=== PATIENT | female | born 1960 | race Caucasian/White ===

== ENCOUNTER 2017-10-19 23:26 | Inpatient (IN) | payer BC ==
[~2017-10-19] VITALS: Ht 170.2 cm; Wt 85.4 kg
[2017-10-19 23:29] VITALS: BP 193/116; PULSE 91; RESP 16; TEMP 97.7; O2SAT 97
[2017-10-19] MEDS ORDERED: SODIUM CHLOR 0.9% 1000 ML INJ 1,000 ML IV SCH (23:42)
[2017-10-19] MEDS ORDERED: ONDANSETRON HCL 4 MG/2 ML VIAL IVP ONE (23:45)
[2017-10-19] MEDS ORDERED: HYDROmorphone HCL PF 2 MG/ML VIAL IVS ONE (23:45)
[2017-10-19] MEDS ORDERED: SODIUM CHLORIDE 0.9% FLUSH 10 ML FLUSH IV FLUSH PRN (23:45)
[2017-10-19] MEDS ORDERED: SODIUM CHLOR 0.9% 1000 ML INJ 1,000 ML IV ONE (23:45)
--- NOTE | 2017-10-19 23:59 | PD ---
HPI Chief Complaint: Abdominal Pain Time Seen by Provider: 23:37 Travel History International Travel<30 days: No Contact w/Intl Traveler<30days: No Traveled to known affect area: No History of Present Illness HPI 57 year-old woman, history of intermittent belly pains every couple months or so , here with severe upper abdominal pain that started this morning. Symptoms are usually worse after eating fatty foods. Pains been constant all day today with severe nausea vomiting. No diarrhea. Last BM was this morning and was normal. No fevers. No history of abdominal surgeries. She had an endoscopy at age 50 for belly problems but no other previous workups. History Past Medical History Medical History: Denies Significant Hx Tetanus Vaccination: Unknown Influenza Vaccination: No LMP: menapause Social History Alcohol Use: No Tobacco Use: No Allergies-Medications (Allergen,Severity, Reaction): Coded Allergies: No Known Allergies (Unverified , 10/19/17) Reported Meds & Prescriptions Reported Meds & Active Scripts Active No Active Prescriptions or Reported Medications Review of Systems Except as stated in HPI: all other systems reviewed are Neg Physical Exam Narrative GENERAL: Somewhat ill-appearing 57 year-old woman, nontoxic. SKIN: Little pale and clammy. HEAD: Atraumatic. Normocephalic. EYES: Pupils equal and round. No scleral icterus. No injection or drainage. ENT: No nasal bleeding or discharge. Mucous membranes pink and moist. NECK: Trachea midline. No JVD. CARDIOVASCULAR: Regular rate and rhythm. No murmur appreciated. RESPIRATORY: No accessory muscle use. Clear to auscultation. Breath sounds equal bilaterally. GASTROINTESTINAL: Abdomen is flat and soft. She has moderate epigastric and right upper quadrant tenderness to palpation with a little bit of voluntary guarding. MUSCULOSKELETAL: No obvious deformities. No edema. NEUROLOGICAL: Awake and alert. No obvious cranial nerve deficits. Motor grossly within normal limits. Normal speech. PSYCHIATRIC: Appropriate mood and affect; insight and judgment normal. Data Data Last Documented VS Vital Signs Date Time Temp Pulse Resp B/P (MAP) Pulse Ox O2 Delivery O2 Flow Rate FiO2 10/20/17 01:30 98 15 193/120 (144) 94 Room Air 10/19/17 23:29 97.7 Orders Orders Complete Blood Count With Diff (10/19/17 23:42) Comprehensive Metabolic Panel (10/19/17 23:42) Lipase (10/19/17 23:42) Prothrombin Time / Inr (Pt) (10/19/17 23:42) Act Partial Throm Time (Ptt) (10/19/17 23:42) Urinalysis - C+S If Indicated (10/19/17 23:42) Us Abdomen Gallbladder (10/19/17 ) Iv Access Insert/Monitor (10/19/17 23:42) Ecg Monitoring (10/19/17 23:42) Oximetry (10/19/17 23:42) Ondansetron Inj (Zofran Inj) (10/19/17 23:45) Sodium Chlor 0.9% 1000 Ml Inj (Ns 1000 M (10/19/17 23:42) Sodium Chloride 0.9% Flush (Ns Flush) (10/19/17 23:45) Hydromorphone Pf Inj (Dilaudid Pf Inj) (10/19/17 23:45) Sodium Chlor 0.9% 1000 Ml Inj (Ns 1000 M (10/19/17 23:45) Hydromorphone Pf Inj (Dilaudid Pf Inj) (10/20/17 00:45) Electrocardiogram (10/20/17 ) Hydromorphone Pf Inj (Dilaudid Pf Inj) (10/20/17 02:30) Troponin I (10/20/17 02:15) Ondansetron Inj (Zofran Inj) (10/20/17 02:45) Admit To Inpatient (10/20/17 ) Vital Signs (Adult) Q4H (10/20/17 04:07) Activity Oob With Assistance (10/20/17 04:07) Diet Npo (10/20/17 Breakfast) Sodium Chlor 0.9% 1000 Ml Inj (Ns 1000 M (10/20/17 04:07) Sodium Chloride 0.9% Flush (Ns Flush) (10/20/17 04:15) Sodium Chloride 0.9% Flush (Ns Flush) (10/20/17 09:00) Ondansetron Inj (Zofran Inj) (10/20/17 04:15) Comprehensive Metabolic Panel (10/21/17 06:00) Complete Blood Count With Diff (10/21/17 06:00) Scd Bilateral/Knee High BRIJESH.BID (10/20/17 04:07) Naloxone Inj (Narcan Inj) (10/20/17 04:15) Docusate Sodium-Senna (Toshia-Colace) (10/20/17 09:00) Magnesium Hydroxide Liq (Milk Of Magnesi (10/20/17 04:15) Sennosides (Senokot) (10/20/17 04:15) Bisacodyl Supp (Dulcolax Supp) (10/20/17 04:15) Lactulose Liq (Lactulose Liq) (10/20/17 04:15) Inpatient Certification (10/20/17 ) Lipase (10/21/17 06:00) Admit Order (Ed Use Only) (10/20/17 ) Labs Laboratory Tests Test 10/20/17 00:10 10/20/17 02:10 10/20/17 02:15 White Blood Count 18.1 TH/MM3 Red Blood Count 6.31 MIL/MM3 Hemoglobin 17.9 GM/DL Hematocrit 54.9 % Mean Corpuscular Volume 87.0 FL Mean Corpuscular Hemoglobin 28.4 PG Mean Corpuscular Hemoglobin Concent 32.6 % Red Cell Distribution Width 14.0 % Platelet Count 293 TH/MM3 Mean Platelet Volume 8.9 FL Neutrophils (%) (Auto) 90.0 % Lymphocytes (%) (Auto) 4.8 % Monocytes (%) (Auto) 5.0 % Eosinophils (%) (Auto) 0.0 % Basophils (%) (Auto) 0.2 % Neutrophils # (Auto) 16.3 TH/MM3 Lymphocytes # (Auto) 0.9 TH/MM3 Monocytes # (Auto) 0.9 TH/MM3 Eosinophils # (Auto) 0.0 TH/MM3 Basophils # (Auto) 0.0 TH/MM3 CBC Comment AUTO DIFF Differential Total Cells Counted 100 Neutrophils % (Manual) 90 % Band Neutrophils % 6 % Lymphocytes % 2 % Monocytes % 2 % Neutrophils # (Manual) 17.4 TH/MM3 Differential Comment FINAL DIFF MANUAL Platelet Estimate NORMAL Platelet Morphology Comment NORMAL Red Cell Morphology Comment NORMAL Urine Color YELLOW Urine Turbidity CLEAR Urine pH 6.5 Urine Specific [place] 1.013 Urine Protein NEG mg/dL Urine Glucose (UA) 70 mg/dL Urine Ketones 40 mg/dL Urine Occult Blood NEG Urine Nitrite NEG Urine Bilirubin NEG Urine Urobilinogen LESS THAN 2.0 MG/DL Urine Leukocyte Esterase SMALL Urine RBC 1 /hpf Urine WBC 2 /hpf Urine Squamous Epithelial Cells 2 /hpf Urine Hyaline Casts 1 /lpf Urine Mucus FEW /lpf Microscopic Urinalysis Comment CULT NOT INDICATED Prothrombin Time 11.1 SEC Prothromb Time International Ratio 1.1 RATIO Activated Partial Thromboplast Time 24.1 SEC Blood Urea Nitrogen 16 MG/DL Creatinine 0.79 MG/DL Random Glucose 159 MG/DL Total Protein 7.9 GM/DL Albumin 3.7 GM/DL Calcium Level 8.4 MG/DL Alkaline Phosphatase 143 U/L Aspartate Amino Transf (AST/SGOT) 272 U/L Alanine Aminotransferase (ALT/SGPT) 178 U/L Total Bilirubin 1.4 MG/DL Sodium Level 140 MEQ/L Potassium Level 3.8 MEQ/L Chloride Level 107 MEQ/L Carbon Dioxide Level 24.1 MEQ/L Anion Gap 9 MEQ/L Estimat Glomerular Filtration Rate 75 ML/MIN Troponin I LESS THAN 0.02 NG/ML Lipase 7986 U/L MDM Medical Decision Making Medical Screen Exam Complete: Yes Emergency Medical Condition: Yes Interpretation(s) My review of EKG: Normal sinus rhythm at a rate of 88, normal axis, normal intervals, nonspecific inferior T-wave changes, no definite evidence of acute ischemia. LABS: CBC remarkable for leukocytosis CMP remarkable for elevated total bili, AST, ALT Troponin negative Lipase 7986 Coags unremarkable. UA is unremarkable. Gallbladder ultrasound: Adenomyomatosis. Dilated common bile duct. Differential Diagnosis Cholecystitis, gastritis, pancreatitis, UTI, gastroenteritis, other Narrative Course Medical decision making 57 year-old woman with upper abdominal pain associated with nausea and vomiting , postprandial, suspicious for cholecystitis. We'll check labs, ultrasound, UA , reassess. FINAL: Patient with acute pancreatitis. Requiring opiates. Vomiting improved. We'll plan on admission. Diagnosis Primary Impression: Acute pancreatitis Admitting Information Admitting Physician Requests: Admit Scripts No Active Prescriptions or Reported Meds Jasvir Graham MD Oct 19, 2017 23:59
[2017-10-20] VITALS (9 sets, daily range): BP systolic 131–200; BP diastolic 89–120; PULSE 90–123; RESP 14–20; TEMP 98.5–99.8; O2SAT 90–98
[2017-10-20] MEDS ORDERED: HYDROmorphone HCL PF 2 MG/ML VIAL IVS ONE ×3 (00:45→04:30)
--- NOTE | 2017-10-20 00:50 | RADRPT ---
EXAM DATE/TIME: 10/20/2017 00:06 [facility] COMPARISON: No previous studies available for comparison. INDICATIONS : Right upper quadrant pain, nausea and vomiting. MEDICAL HISTORY : Right upper quadrant pain, nausea and vomiting. SURGICAL HISTORY : None. ENCOUNTER: Initial ACUITY: 1 day PAIN SCORE: 1/10 LOCATION: Right upper quadrant MEASUREMENTS: LIVER: 18.4 cm length COMMON DUCT: 10 mm RIGHT KIDNEY: 12.6 x 4.7 x 4.8 cm FINDINGS: LIVER: Normal echotexture without focal lesion or ductal dilatation. COMMON DUCT: Dilated without definite filling defect. GALLBLADDER: Abnormal appearance with mild wall thickening, multiple tiny wall adherent polyps. PANCREAS: The visualized portions are within normal limits. RIGHT KIDNEY: No evidence of hydronephrosis, stone, or mass. CONCLUSION: Gallbladder adenomyomatosis Dilated common bile duct without clear etiology. Tejas Brown MD on October 20, 2017 at 0:44 Board Certified Radiologist. This report was verified electronically.
[2017-10-20 01:30] LABS: AUTOMATED NEUTROPHIL # 16.3 TH/MM3 (1.8-7.7); BASOPHIL % 0.2 % (0.0-2.0); HEMATOCRIT 54.9 % (35.0-46.0); HEMOGLOBIN 17.9 GM/DL (11.6-15.3); LYMPH % 4.8 % (9.0-44.0); LYMPHOCYTE # 0.9 TH/MM3 (1.0-4.8); MEAN CORPUSCULAR HEMOGLOBIN 28.4 PG (27.0-34.0); MEAN CORPUSCULAR HGB CONC 32.6 % (32.0-36.0); MEAN PLATELET VOLUME 8.9 FL (7.0-11.0); MONOCYTE # 0.9 TH/MM3 (0-0.9); PLATELET COUNT 293 TH/MM3 (150-450); RED BLOOD COUNT 6.31 MIL/MM3 (4.00-5.30); WHITE BLOOD COUNT 18.1 TH/MM3 (4.0-11.0)
[2017-10-20 02:22] LABS: BANDS 6 % (0-6); LYMPHOCYTES 2 % (9-44); MONOCYTES 2 % (0-8); NEUTROPHIL # MANUAL DIFF 17.4 TH/MM3 (1.8-7.7); POLYS (SEG NEUTROPHILS) 90 % (16-70)
[2017-10-20] MEDS ORDERED: ONDANSETRON HCL 4 MG/2 ML VIAL IV ONE (02:45)
[2017-10-20 02:46] LABS: INTERNATIONAL NORMALIZED RATIO 1.1 RATIO; PROTHROMBIN TIME - PATIENT 11.1 SEC (9.8-11.6)
[2017-10-20 02:46] LABS: BILIRUBIN, URINE NEG (NEG); BLOOD, URINE NEG (NEG); GLUCOSE,URINE 70 mg/dL (NEG); HYALINE CAST, URINE 1 /lpf (RARE); KETONE, URINE 40 mg/dL (NEG); MUCUS URINE FEW /lpf (OCC); NITRITE,URINE NEG (NEG); PH, URINE 6.5 (5.0-8.5); SQUAMOUS EPITHELIAL CELL URINE 2 /hpf (0-5); URINE COLOR YELLOW (YELLW/STRAW); URINE LEUKOCYTE ESTERASE SMALL (NEG)
[2017-10-20 03:04] LABS: ALBUMIN 3.7 GM/DL (3.4-5.0); ALT (GPT) 178 U/L (10-53); AST (GOT) 272 U/L (15-37); BICARBONATE 24.1 MEQ/L (21.0-32.0); BLOOD UREA NITROGEN 16 MG/DL (7-18); CALCIUM 8.4 MG/DL (8.5-10.1); CHLORIDE 107 MEQ/L (98-107); CREATININE 0.79 MG/DL (0.50-1.00); GLOMERULAR FILTRATION RATE 75 ML/MIN (>89); GLUCOSE,RANDOM 159 MG/DL (74-106); SODIUM (NA) 140 MEQ/L (136-145)
[2017-10-20 03:08] LABS: ALKALINE PHOSPHATASE 143 U/L (45-117); LIPASE 7986 U/L (73-393); TOTAL BILIRUBIN ADULT 1.4 MG/DL (0.2-1.0); TOTAL PROTEIN 7.9 GM/DL (6.4-8.2); TROPONIN I LESS THAN 0.02 NG/ML (0.02-0.05)
[2017-10-20] MEDS: SODIUM CHLOR 0.9% 1000 ML INJ 1,000 ML IV SCH ×5 (04:07→23:07)
[2017-10-20] MEDS ORDERED: MAGNESIUM HYDROXIDE SUSP 30 ML CUP PO PRN (04:15)
[2017-10-20] MEDS ORDERED: LACTULOSE SYRUP 20 GM/30 ML CUP PO PRN (04:15)
[2017-10-20] MEDS ORDERED: SENNOSIDES 8.6 MG TAB PO PRN (04:15)
[2017-10-20] MEDS ORDERED: NALOXONE HCL 0.4 MG/ML AMP IV PUSH PRN (04:15)
[2017-10-20] MEDS ORDERED: BISACODYL 10 MG SUPP RECTAL PRN (04:15)
[2017-10-20] MEDS ORDERED: hydrALAZINE HCL 20 MG/ML VIAL IV PUSH ONE (05:15)
--- NOTE | 2017-10-20 06:20 | HHI.HP ---
[facility]ician Unknown Admission Diagnosis acute pancreatitis Diagnoses: Travel History International Travel<30 Days: No Contact w/Intl Traveler <30 Da: No Traveled to Known Affected Are: No History of Present Illness 57-year-old female with no significant past medical history for since the emergency department for evaluation of severe epigastric abdominal pain and nausea/vomiting. The patient reports her symptoms started yesterday morning. She had severe, 10/10, nonradiating epigastric abdominal pain with severe nausea and multiple episodes of NBNB emesis. Lab values significant for WBC count of 18.1. She has a transaminitis with a lipase of 7986. Ultrasound of the gallbladder showed adenomyomatosis with a dilated common bile duct without clear etiology. Patient found to be tachycardic and hypertensive in the emergency department. Review of Systems Denies fever or chills Denies blurry vision, otorrhea, rhinorrhea Denies sore throat and cough No chest pain, palpitations, shortness of breath Positive abdominal pain Denies constipation/diarrhea. Positive nausea/vomiting Denies muscle pain/weakness No rashes Past Family Social History Past Medical History None Past Surgical History Left bunion surgery Right knee surgery Tummy tuck Breast lift Reported Medications Reported Meds & Active Scripts Active No Active Prescriptions or Reported Medications Allergies: Coded Allergies: No Known Allergies (Unverified , 10/19/17) Family History Both parents with diabetes mellitus. Father with CAD. Social History Occasional alcohol use. Denies tobacco, illicit drugs. Physical Exam Vital Signs Vital Signs Date Time Temp Pulse Resp B/P (MAP) Pulse Ox O2 Delivery O2 Flow Rate FiO2 10/20/17 05:48 112 15 171/99 (123) 94 Room Air 10/20/17 01:30 98 15 193/120 (144) 94 Room Air 10/20/17 01:00 90 14 197/113 (141) 94 Room Air 10/20/17 00:35 99 20 200/107 (138) 94 Room Air 10/20/17 00:03 98 Room Air 10/19/17 23:29 97.7 91 16 193/116 (141) 97 Room Air Physical Exam GENERAL: female lying in bed SKIN: No rashes, ecchymoses or lesions. Cool and dry. HEAD: Atraumatic. Normocephalic. No temporal or scalp tenderness. EYES: Pupils equal round and reactive. Extraocular motions intact. No scleral icterus. No injection or drainage. ENT: Nose without bleeding, purulent drainage or septal hematoma. Throat without erythema, tonsillar hypertrophy or exudate. Uvula midline. Airway patent. NECK: Trachea midline. No JVD or lymphadenopathy. Supple, nontender, no meningeal signs. CARDIOVASCULAR: Regular rate and rhythm without murmurs, gallops, or rubs. RESPIRATORY: Clear to auscultation. Breath sounds equal bilaterally. No wheezes , rales, or rhonchi. GASTROINTESTINAL: Abdomen soft, nondistended. Severely tender to palpation worse in the epigastric region. MUSCULOSKELETAL: Extremities without clubbing, cyanosis, or edema. No joint tenderness, effusion, or edema noted. No calf tenderness. NEUROLOGICAL: Awake and alert. Cranial nerves II through XII intact. Motor and sensory grossly within normal limits. Normal speech. Laboratory Laboratory Tests Test 10/20/17 00:10 10/20/17 02:10 10/20/17 02:15 White Blood Count 18.1 Red Blood Count 6.31 Hemoglobin 17.9 Hematocrit 54.9 Mean Corpuscular Volume 87.0 Mean Corpuscular Hemoglobin 28.4 Mean Corpuscular Hemoglobin Concent 32.6 Red Cell Distribution Width 14.0 Platelet Count 293 Mean Platelet Volume 8.9 Neutrophils (%) (Auto) 90.0 Lymphocytes (%) (Auto) 4.8 Monocytes (%) (Auto) 5.0 Eosinophils (%) (Auto) 0.0 Basophils (%) (Auto) 0.2 Neutrophils # (Auto) 16.3 Lymphocytes # (Auto) 0.9 Monocytes # (Auto) 0.9 Eosinophils # (Auto) 0.0 Basophils # (Auto) 0.0 CBC Comment AUTO DIFF Differential Total Cells Counted 100 Neutrophils % (Manual) 90 Band Neutrophils % 6 Lymphocytes % 2 Monocytes % 2 Neutrophils # (Manual) 17.4 Differential Comment FINAL DIFF MANUAL Platelet Estimate NORMAL Platelet Morphology Comment NORMAL Red Cell Morphology Comment NORMAL Urine Color YELLOW Urine Turbidity CLEAR Urine pH 6.5 Urine Specific [place] 1.013 Urine Protein NEG Urine Glucose (UA) 70 Urine Ketones 40 Urine Occult Blood NEG Urine Nitrite NEG Urine Bilirubin NEG Urine Urobilinogen LESS THAN 2.0 Urine Leukocyte Esterase SMALL Urine RBC 1 Urine WBC 2 Urine Squamous Epithelial Cells 2 Urine Hyaline Casts 1 Urine Mucus FEW Microscopic Urinalysis Comment CULT NOT INDICATED Prothrombin Time 11.1 Prothromb Time International Ratio 1.1 Activated Partial Thromboplast Time 24.1 Blood Urea Nitrogen 16 Creatinine 0.79 Random Glucose 159 Total Protein 7.9 Albumin 3.7 Calcium Level 8.4 Alkaline Phosphatase 143 Aspartate Amino Transf (AST/SGOT) 272 Alanine Aminotransferase (ALT/SGPT) 178 Total Bilirubin 1.4 Sodium Level 140 Potassium Level 3.8 Chloride Level 107 Carbon Dioxide Level 24.1 Anion Gap 9 Estimat Glomerular Filtration Rate 75 Troponin I LESS THAN 0.02 Lipase 7986 Result Diagram: 10/20/17 0010 10/20/17 0215 Caprini VTE Risk Assessment Caprin VTE Risk Assessment: No/Low Risk (score <= 1) Caprini Risk Assessment Model Point Value = 1 Point Value = 2 Point Value = 3 Point Value = 5 Age 41-60 Minor surgery BMI > 25 kg/m2 Swollen legs Varicose veins or History of unexplained or recurrent spontaneous Oral contraceptives or hormone replacement Sepsis (< 1 month) Serious lung disease, including pneumonia (< 1 month) Abnormal pulmonary function Acute myocardial infarction Congestive heart failure (< 1 month) History of inflammatory bowel disease Medical patient at bed rest Age 61-74 Arthroscopic surgery Major open surgery (> 45 min) Laparoscopic surgery (> 45 min) Malignancy Confined to bed (> 72 hours) Immobilizing plaster cast Central venous access Age >= 75 History of VTE Family history of VTE Factor V Leiden Prothrombin [id number] Lupus anticoagulant Anticardiolipin antibodies Elevated serum homocysteine Heparin-induced thrombocytopenia Other congenital or acquired thrombophilia Stroke (< 1 month) Elective arthroplasty Hip, pelvis, or leg fracture Acute spinal cord injury (< 1 month) Prophylaxis Regimen Total Risk Factor Score Risk Level Prophylaxis Regimen 0-1 Low Early ambulation 2 Moderate Order ONE of the following: *Sequential Compression Device (SCD) *Heparin 5000 units SQ BID 3-4 Higher Order ONE of the following medications: *Heparin 5000 units SQ TID *Enoxaparin/Lovenox 40 mg SQ daily (WT < 150 kg, CrCl > 30 mL/min) *Enoxaparin/Lovenox 30 mg SQ daily (WT < 150 kg, CrCl > 10-29 mL/min) *Enoxaparin/Lovenox 30 mg SQ BID (WT < 150 kg, CrCl > 30 mL/min) AND/OR *Sequential Compression Device (SCD) 5 or more Highest Order ONE of the following medications: *Heparin 5000 units SQ TID (Preferred with Epidurals) *Enoxaparin/Lovenox 40 mg SQ daily (WT < 150 kg, CrCl > 30 mL/min) *Enoxaparin/Lovenox 30 mg SQ daily (WT < 150 kg, CrCl > 10-29 mL/min) *Enoxaparin/Lovenox 30 mg SQ BID (WT < 150 kg, CrCl > 30 mL/min) AND *Sequential Compression Device (SCD) Assessment and Plan Assessment and Plan Assessment/plan: 1. Acute pancreatitis Nothing by mouth IV fluid hydration Patient with transaminitis and elevated common bile duct on ultrasound CT of the abdomen/pelvis pending Dilaudid for pain 2. Hypertension/tachycardia Patient without history of hypertension May be secondary to pain Monitor FEN NPO NS at 150 cc/hr Electrolytes: monitor and replete prn SCDs Case discussed with the ER physician at length Physician Certification 2 Midnight Certification Type: Admission for Inpatient Services Order for Inpatient Services The services are ordered in accordance with Medicare regulations or non- Medicare payer requirements, as applicable. In the case of services not specified as inpatient-only, they are appropriately provided as inpatient services in accordance with the 2-midnight benchmark. Estimated LOS (days): 2 2 days is the estimated time the patient will need to remain in the hospital, assuming treatment plan goals are met and no additional complications. Post-Hospital Plan: Not yet determined Joanne Chavarria MD Oct 20, 2017 06:20
--- NOTE | 2017-10-20 06:42 | RADRPT ---
EXAM DATE/TIME: 10/20/2017 06:15 [facility] COMPARISON: US ABDOMEN - GALLBLADDER, October 20, 2017, 0:06. INDICATIONS : Right upper qaudrant pain. Elevated Lipase. ORAL CONTRAST: No oral contrast ingested. RADIATION DOSE: 7.04 CTDIvol (mGy) MEDICAL HISTORY : None SURGICAL HISTORY : None. ENCOUNTER: Initial ACUITY: 2 days PAIN SCALE: 8/10 LOCATION: Right upper quadrant TECHNIQUE: Volumetric scanning of the abdomen and pelvis was performed. Using automated exposure control and ad justment of the mA and/or kV according to patient size, radiation dose was kept as low as reasonably achievable to obtain optimal diagnostic quality images. DICOM format image data is available electro nically for review and comparison. FINDINGS: LOWER LUNGS: Minimal parenchymal opacity in the posterior lung bases. LIVER: Homogeneous density without lesion. There is no dilation of the biliary tree. Dependent calcified st ones in the gallbladder SPLEEN: Normal size without lesion. PANCREAS: Prominent inflammatory changes in and around the pancreas with extension throughout the pararenal spa david bilaterally. Some dependent pelvic fluid present. Some ascites adjacent to the liver and spleen. No evidence of loculated collection at present. KIDNEYS: Normal in size and shape. There is no mass, stone, or hydronephrosis. ADRENAL GLANDS: Within normal limits. VASCULAR: There is no aortic aneurysm. BOWEL/MESENTERY: The stomach, small bowel, and colon demonstrate no acute abnormality. There is no free intraperitone al air or fluid. ABDOMINAL WALL: Within normal limits. RETROPERITONEUM: There is no lymphadenopathy. BLADDER: No wall thickening or mass. REPRODUCTIVE: Within normal limits. INGUINAL: There is no lymphadenopathy or hernia. MUSCULOSKELETAL: Within normal limits for patient age. CONCLUSION: Prominent changes of pancreatitis. Gallstones. Tejas Brown MD on October 20, 2017 at 6:37 Board Certified Radiologist. This report was verified electronically.
[2017-10-20] MEDS: HYDROmorphone HCL PF 2 MG/ML VIAL IV PUSH PRN ×6 (07:29→23:06)
[2017-10-20] MEDS: ONDANSETRON HCL 4 MG/2 ML VIAL IVP PRN ×2 (07:37→15:20)
[2017-10-20] MEDS: DOCUSATE SODIUM 50 MG/SENNA 8.6 MG TAB PO SCH ×3 (09:00→21:00)
[2017-10-20] MEDS: SODIUM CHLORIDE 0.9% FLUSH 10 ML FLUSH IV FLUSH SCH ×2 (09:04→21:00)
--- NOTE | 2017-10-20 11:43 | HHI.PR ---
Addendum to Inpatient Note Additional Information Review CT abdomen and gallbladder ultrasound, I order MRCP and consulted GI, continue current management with iv fluid management electrolyte monitoring Luz Munson MD Oct 20, 2017 11:43
[2017-10-20] MEDS ORDERED: HYDROmorphone HCL PF 2 MG/ML VIAL IV ONE (13:15)
--- NOTE | 2017-10-20 16:34 | RADRPT ---
EXAM DATE/TIME: 10/20/2017 15:38 [facility] COMPARISON: CT ABDOMEN & PELVIS W/O CONTRAST, October 20, 2017, 6:15. INDICATIONS : Abdominal pain. MEDICAL HISTORY : None. SURGICAL HISTORY : ORIF left foot. ENCOUNTER: Initial ACUITY: 1 day PAIN SCORE: 5/10 LOCATION: Abdomen. TECHNIQUE: Multiplanar, multisequence magnetic resonance imaging of the abdomen was performed. High-resolution 3D dataset was utilized to reconstruct maximum-intensity projection (MIP) images. FINDINGS: INTRAHEPATIC BILE DUCTS: Within normal limits. No significant anatomical variant is present. EXTRAHEPATIC BILE DUCTS: The common bile duct measures 8 mm proximally and 5 mm distally. No stone or filling defect is identi fied. GALLBLADDER: Numerous small gallstones layering in the gallbladder. LIVER: Normal size and signal intensity. No concerning liver lesion is identified on this non-contrast exam. Small amount of perihepatic ascites. PANCREAS: Severe diffuse peripancreatic inflammatory change. Pancreatic duct within normal limits. OTHER: The remaining visualized structures demonstrate no acute abnormality on this non-contrast exam. CONCLUSION: 1. Severe peripancreatic inflammatory change indicating acute pancreatitis. 2. Numerous gallstones in the gallbladder. 3. Common duct diameter is mildly prominent proximally measuring 8 mm. No abnormal filling defect. Chin Griffin MD on October 20, 2017 at 16:29 Board Certified Radiologist. This report was verified electronically.
--- NOTE | 2017-10-20 21:26 | EKG ---
Date Performed: 10/20/2017 Time Performed: 02:34:44 PTAGE: 57 years EKG: Sinus rhythm NORMAL ECG NO PREVIOUS TRACING DOCTOR: Lucius Aviles Interpretating Date/Time 10/20/2017 21:24:00
[2017-10-21] VITALS: BP 130/87; PULSE 128; RESP 16; TEMP 98.4; O2SAT 95
[2017-10-21] MEDS: ONDANSETRON HCL 4 MG/2 ML VIAL IVP PRN (02:56)
[2017-10-21] MEDS: HYDROmorphone HCL PF 2 MG/ML VIAL IV PUSH PRN ×6 (02:57→20:36)
[2017-10-21] MEDS: SODIUM CHLOR 0.9% 1000 ML INJ 1,000 ML IV SCH ×2 (05:57→12:01)
[2017-10-21 07:31] LABS: AUTOMATED NEUTROPHIL # 16.6 TH/MM3 (1.8-7.7); BASOPHIL % 0.1 % (0.0-2.0); HEMATOCRIT 46.7 % (35.0-46.0); HEMOGLOBIN 15.5 GM/DL (11.6-15.3); LYMPH % 2.6 % (9.0-44.0); LYMPHOCYTE # 0.5 TH/MM3 (1.0-4.8); MEAN CELL VOLUME 87.8 FL (80.0-100.0); MEAN CORPUSCULAR HEMOGLOBIN 29.2 PG (27.0-34.0); MEAN CORPUSCULAR HGB CONC 33.2 % (32.0-36.0); MEAN PLATELET VOLUME 8.7 FL (7.0-11.0); MONO % 7.6 % (0.0-8.0); MONOCYTE # 1.4 TH/MM3 (0-0.9); NEUT % 89.7 % (16.0-70.0); PLATELET COUNT 216 TH/MM3 (150-450); RED BLOOD COUNT 5.32 MIL/MM3 (4.00-5.30); RED CELL DISTRIBUTION WIDTH 13.9 % (11.6-17.2); WHITE BLOOD COUNT 18.5 TH/MM3 (4.0-11.0)
[2017-10-21 08:00] VITALS: BP 129/76; PULSE 110; RESP 17; TEMP 97.9; O2SAT 97
[2017-10-21 08:00] LABS: ALBUMIN 2.6 GM/DL (3.4-5.0); CALCIUM 7.2 MG/DL (8.5-10.1); CALCIUM-PROTEIN CORRECTED 7.6 MG/DL (8.5-10.1); CREATININE 0.91 MG/DL (0.50-1.00); TOTAL BILIRUBIN ADULT 0.8 MG/DL (0.2-1.0); TOTAL PROTEIN 6.4 GM/DL (6.4-8.2)
[2017-10-21] MEDS: DOCUSATE SODIUM 50 MG/SENNA 8.6 MG TAB PO SCH ×3 (08:14→20:35)
[2017-10-21] MEDS: SODIUM CHLORIDE 0.9% FLUSH 10 ML FLUSH IV FLUSH SCH ×2 (09:00→20:36)
[2017-10-21] MEDS ORDERED: CALCIUM GLUCONATE INJ 2 GM in DEXTROSE 5% IN WATER 100ML INJ 100 ML IV ONE ×2 (11:00)
[2017-10-21] MEDS: cefTRIAXone INJ 2,000 MG in SODIUM CHLORIDE 0.9% INJ 100 ML IV SCH ×2 (11:00→22:35)
--- NOTE | 2017-10-21 11:04 | PD.CONS ---
HPI History of Present Illness This is a 57 year old with no PMH who presented with epigastric pain, n/v. Onset 2 d ago after eating schneider and a greasy lunch. She thought it was gas. She has had epigastric discomfort with occ n/v and bloating in past and has always attributed it to "acid foods" and gas. This time was more severe. She has had some improvement in pain and nausea today. US showed dilated CBD, adenomyomatosis, CT showed pancreatitis and gallstones, MRCP showed same and CBD mildly prominent with no filling defects. Her lipase was elevated on admission and has decreased today, along with her LFTs. WBC elevated. She had colonoscopy 7 y ago in [place] along with EGD and recalls gastritis as finding. (Fawn Colin) PFSH Past Medical History None Past Surgical History Left bunion surgery Right knee surgery Tummy tuck Breast lift (Fawn Colin) Coded Allergies: No Known Allergies (Unverified , 10/19/17) Family History Both parents with diabetes mellitus. Father with CAD. Social History Occasional alcohol use. Denies tobacco, illicit drugs. (Fawn Colin) Review of Systems Constitutional: DENIES: Weight loss Endocrine: DENIES: Polyuria Eyes: DENIES: Photosensitivity Ears, nose, mouth, throat: DENIES: Hearing loss Respiratory: DENIES: Wheezing Cardiovascular: DENIES: Chest pain Gastrointestinal: COMPLAINS OF: Abdominal pain, Nausea, Vomiting, DENIES: Black stools, Bloody stools, Constipation, Diarrhea, Hematemesis Genitourinary: DENIES: Hematuria Musculoskeletal: DENIES: Joint Swelling Integumentary: DENIES: Rash Hematologic/lymphatic: DENIES: Lymphadenopathy Neurologic: DENIES: Abnormal gait Psychiatric: DENIES: Confusion (Fawn Colin) GI Exam Vitals I&O Vital Signs Date Time Temp Pulse Resp B/P (MAP) Pulse Ox O2 Delivery O2 Flow Rate FiO2 10/21/17 08:00 97.9 110 17 129/76 (93) 97 10/21/17 00:00 98.4 128 16 130/87 (101) 95 10/20/17 20:00 99.1 123 17 132/90 (104) 94 10/20/17 16:00 99.8 123 16 131/89 (103) 90 12/24/17 12:00 98.8 123 20 167/103 (124) 95 I/O 10/20/17 10/20/17 10/20/17 10/21/17 10/21/17 10/21/17 07:00 15:00 23:00 07:00 15:00 23:00 Intake Total 2000 ml 0 ml 1774 ml Output Total 250 ml Balance 2000 ml 0 ml 1524 ml Intake Oral 0 ml 0 ml IV Total 2000 ml 1774 ml Output Urine Total 250 ml # Voids 1 2 Imaging Last Impressions Cholangiopancreatography MRI 10/20/17 0000 Signed Impressions: Service Date/Time: Friday, October 20, 2017 15:38 - CONCLUSION: 1. Severe peripancreatic inflammatory change indicating acute pancreatitis. 2. Numerous gallstones in the gallbladder. 3. Common duct diameter is mildly prominent proximally measuring 8 mm. No abnormal filling defect. Chin Griffin MD Abdomen/Pelvis CT 10/20/17 0000 Signed Impressions: Service Date/Time: Friday, October 20, 2017 06:15 - CONCLUSION: Prominent changes of pancreatitis. Gallstones. Tejas Brown MD Gall Bladder Ultrasound 10/19/17 0000 Signed Impressions: Service Date/Time: Friday, October 20, 2017 00:06 - CONCLUSION: Gallbladder adenomyomatosis Dilated common bile duct without clear etiology. Tejas Brown MD Laboratory Test 10/20/17 12:25 10/21/17 06:25 Lactic Acid Level 1.6 mmol/L White Blood Count 18.5 TH/MM3 Red Blood Count 5.32 MIL/MM3 Hemoglobin 15.5 GM/DL Hematocrit 46.7 % Mean Corpuscular Volume 87.8 FL Mean Corpuscular Hemoglobin 29.2 PG Mean Corpuscular Hemoglobin Concent 33.2 % Red Cell Distribution Width 13.9 % Platelet Count 216 TH/MM3 Mean Platelet Volume 8.7 FL Neutrophils (%) (Auto) 89.7 % Lymphocytes (%) (Auto) 2.6 % Monocytes (%) (Auto) 7.6 % Eosinophils (%) (Auto) 0.0 % Basophils (%) (Auto) 0.1 % Neutrophils # (Auto) 16.6 TH/MM3 Lymphocytes # (Auto) 0.5 TH/MM3 Monocytes # (Auto) 1.4 TH/MM3 Eosinophils # (Auto) 0.0 TH/MM3 Basophils # (Auto) 0.0 TH/MM3 CBC Comment DIFF FINAL Differential Comment Blood Urea Nitrogen 18 MG/DL Creatinine 0.91 MG/DL Random Glucose 130 MG/DL Total Protein 6.4 GM/DL Albumin 2.6 GM/DL Calcium Level 7.2 MG/DL Alkaline Phosphatase 89 U/L Aspartate Amino Transf (AST/SGOT) 63 U/L Alanine Aminotransferase (ALT/SGPT) 72 U/L Total Bilirubin 0.8 MG/DL Sodium Level 142 MEQ/L Potassium Level 4.5 MEQ/L Chloride Level 111 MEQ/L Carbon Dioxide Level 25.0 MEQ/L Anion Gap 6 MEQ/L Estimat Glomerular Filtration Rate 64 ML/MIN Protein Corrected Calcium 7.6 MG/DL Magnesium Level 1.8 MG/DL Lipase 4449 U/L Physical Examination HEENT: PERRL; normocephalic; atraumatic; no jaundice. CHEST: CTA CARDIAC: RRR ABDOMEN: Soft, mildly distended, upper quadrant TTP; no hepatosplenomegaly; bowel sounds are present in all four quadrants. EXTREMITIES: No clubbing, cyanosis, or edema. SKIN: Normal; no rash; no jaundice. INFRASTRUCTURE CONSULTANT: No focal deficits; alert and oriented times three. (Fawn Colin) Assessment and Plan Plan ASSESSMENT - epigastric pain, n/v, bloating, abnormal imaging - gallstone pancreatitis, suspect she had CBD stone that has passed. LFTS, lipase elevated but trending down. imaging noted. MRCP noted mildly prominent CBD and no filling defect, pancreatitis. some improvement sx since yesterday - leukocytosis - WBC remains elevated 18k likely 2/2 above PLAN - abx - NPO w/ ice chips - IVF - pain mgmt - GS consult outpt - monitor LFTs, lipase - further recs to follow This pt seen by myself and Dr Partida and this note is written on his behalf (Fawn Colin) Physician Comments Seen and examined, plan as above. Will follow up with you. (Prudence Partida MD) Fawn Colin Oct 21, 2017 11:04 Prudence Partida MD Oct 21, 2017 12:14
[2017-10-21 12:00] VITALS: BP 133/78; PULSE 106; RESP 17; TEMP 98.4; O2SAT 97
[2017-10-21] MEDS: DEXT 5%-NACL 0.45% 1000 ML INJ 1,000 ML IV SCH ×2 (13:00→20:37)
--- NOTE | 2017-10-21 13:22 | HHI.PR ---
Subjective Remarks abd pain is better , no n/v lipase and LFT trending down d/w GI >rec surgery consult Objective Vitals Vital Signs Date Time Temp Pulse Resp B/P (MAP) Pulse Ox O2 Delivery O2 Flow Rate FiO2 10/21/17 12:00 98.4 106 17 133/78 (96) 97 10/21/17 08:00 97.9 110 17 129/76 (93) 97 10/21/17 00:00 98.4 128 16 130/87 (101) 95 10/20/17 20:00 99.1 123 17 132/90 (104) 94 10/20/17 16:00 99.8 123 16 131/89 (103) 90 I/O 10/20/17 10/20/17 10/20/17 10/21/17 10/21/17 10/21/17 07:00 15:00 23:00 07:00 15:00 23:00 Intake Total 2000 ml 0 ml 1774 ml Output Total 250 ml Balance 2000 ml 0 ml 1524 ml Intake Oral 0 ml 0 ml IV Total 2000 ml 1774 ml Output Urine Total 250 ml # Voids 1 2 Result Diagram: 10/21/1762410/21/17624 Objective Remarks GENERAL: This is a well-nourished, well-developed patient, in no apparent distress. CARDIOVASCULAR: Regular rate and rhythm without murmurs, gallops, or rubs. RESPIRATORY: Clear to auscultation. Breath sounds equal bilaterally. No wheezes , rales, or rhonchi. GASTROINTESTINAL: Abdomen soft, non-tender, nondistended. Normal active bowel sounds MUSCULOSKELETAL: Extremities without clubbing, cyanosis, or edema. NEURO: Alert & Oriented x4 to person, place, time, situation. Moves all ext x4 A/P Assessment and Plan abd pain is better , no n/v lipase and LFT trending down d/w GI >rec surgery consult 1. Acute pancreatitis Nothing by mouth IV fluid hydration Patient with transaminitis and elevated common bile duct on ultrasound CT of the abdomen/pelvis pending Dilaudid for pain 2. Hypertension/tachycardia Patient without history of hypertension May be secondary to pain Monitor Discharge Planning Luz Munson MD Oct 21, 2017 13:22
[2017-10-21 16:00] VITALS: BP 127/83; PULSE 97; RESP 16; TEMP 97.6; O2SAT 98
--- NOTE | 2017-10-21 18:03 | MB ---
cc: YOVANNY LIANG MD, DAVID G. M.D. NEMOU, KHALIL MD DATE OF CONSULTATION 10/21/2017 REASON FOR CONSULTATION Gallstone pancreatitis. BRIEF HISTORY This is a 57-year-old woman who was camping with family at [facility] and she got up and had greasy schneider. She developed severe upper abdominal pain, nausea with emesis. Her significant other was with her and said he brought a chair into the bath house for her and she would throw up and have cold compresses and throw up and became severely dehydrated. She eventually got so dehydrated and painful she requested being brought to the emergency room. She was so out of it, she did not even have any shoes on at that time. She was found to have pancreatitis, was put in the hospital, had ultrasound which showed a dilated common bile duct and adenomyomatosis. CT and MRCP demonstrate severe pancreatitis, ascites, gallstones and a mildly prominent common bile duct without filling defects. Her liver function tests and lipase have decreased somewhat. She has a significant history of acid disease and gastritis, no real gastroesophageal reflux disease in the past. She is still pretty painful across the upper abdomen although improved. ALLERGIES She has had no known drug allergies. PAST MEDICAL HISTORY Her past medical history is noncontributory other than having these episodes of acid type abdominal discomfort. She apparently had an EGD which showed some gastritis and a colonoscopy seven years ago. ROUTINE MEDICATIONS None. PREVIOUS SURGERIES 1. Left bunion surgery. 2. She has had right knee surgery where she says her ACL was completely torn but she never did anything for it other than a knee arthroscopy. 3. She has had a breast list. 4. She has had a mini-tummy tuck. 5. She has had a tubal ligation. 6. She has also had LASIK surgery on the eyes. SOCIAL HISTORY She really does not drink much more than one drink at a time for several years. She denies tobacco abuse or illicit drug use. FAMILY HISTORY Significant for heart disease and diabetes. She had a brother with bone cancer and he has been in remission since his 20s. REVIEW OF SYSTEMS CONSTITUTIONAL: On review of systems she has had weight gain of 30 pounds over the last 4 or 5 years since she has been going through menopause. CARDIOVASCULAR: She denies primary heart disease although she was told she had a heart murmur during this hospitalization. She had never known that in the past. She has had prior EKGs without any problems. GASTROINTESTINAL: She denies known liver or kidney disease. NEUROLOGIC: No history of strokes or seizures. ENDOCRINE: No diabetes or thyroid gland problems. HEMATOLOGIC: She has never been on blood thinning medications. PHYSICAL EXAMINATION GENERAL: Her physical examination shows a middle-aged woman who is in no acute distress. She is pleasant and cooperative with the exam. Exam done in the presence of her significant other. VITAL SIGNS: Her temperature is 97.6, pulse 97, respiratory rate 16, blood pressure 127/83. Her O2 sat is 98% on room air. HEENT: She is normocephalic, atraumatic. Her pupils are 2 and sluggishly reactive to light. They are round and equal. Her sclerae are anicteric. Oropharynx is clear without mucosal lesions. She has good dentition. Her mucous membranes are moist. NECK: Her neck is supple without adenopathy. She has a midline trachea. No jugular venous distension. No thyromegaly and no carotid bruits. LUNGS: Her lungs are clear and equal anteriorly bilaterally. CARDIOVASCULAR: Her heart sounds are regular with an obvious 3-4/6 systolic ejection murmur. BREAST EXAM: Not repeated. ABDOMEN: Her abdomen is overweight, soft, mildly distended and tender across the upper abdomen without rebound or guarding. She has a healed scar in the inferior aspect of the umbilicus consistent with tubal ligation. She has a healed low transverse scar consistent with her history of abdominoplasty. EXTREMITIES: Her extremities show no cyanosis, clubbing or edema. She has got equal radial and dorsalis pedis pulses. She has scars from her prior bunion and knee arthroscopy surgeries. NEUROLOGICALLY: She is awake, alert, oriented and she has equal bilateral supervisor partial denture department strength and no gross motor or sensory deficit. LABORATORY DATA Her labs demonstrate a white count of 18.5 with 89% neutrophils. Her hemoglobin is 15.5 with a platelet count of 216. Coagulation studies were normal. Her total bilirubin has gone from 1.4 to 0.8, AST from 272 to 63, ALT from 178 to 72, alk phos from 143 to 89. Her lipase went from 7986 to 4449. Her magnesium was 1.8. Urinalysis showed glucosuria and ketonuria and a culture was not indicated. There was no bilirubin in her a urine. IMAGING STUDIES Ultrasound demonstrated a dilated common duct without definite filling defect, abnormal appearance with mild wall thickening of the gallbladder, multiple tiny wall adherent polyps which in retrospect are more likely gallstones. She had an MRCP which demonstrated severe shaina-pancreatic inflammatory change consistent with acute pancreatitis, numerous gallstones in the gallbladder, a mildly prominent common bile duct without filling defect. A CT scan of the abdomen and pelvis demonstrated prominent changes of pancreatitis with ascites as well as gallstones. ASSESSMENT This is a 57-year-old woman with history of intermittent episodes of upper abdominal discomfort which she attributed to acid who has had previous gastritis on EGD. She developed acute onset of pain, nausea with emesis and subsequent dehydration likely related to gallstone pancreatitis. Imaging studies had demonstrated a likely passed common bile duct stone. She still has severe inflammatory pancreatic changes on imaging as well as ascites. She is lead mason tender in the upper abdomen. RECOMMENDATIONS Treatment at this point for acute pancreatitis is bowel rest and supportive therapy. I discussed with the patient and her significant other ultimate treatment to remove the etiology of gallstone pancreatitis is laparoscopic cholecystectomy. The procedure in detail plus risks of bleeding, infection, injury to intraabdominal contents including liver, bile duct or bowel, possible open surgery, DVT, pulmonary embolus and expectations for recovery were reviewed. She is from [place] and is considering she may elect to go home and have her surgery in [place]. I discussed with her the risk of developing a second episode of pancreatitis should another stones spill into the common bile duct and the complications potentially associated with that. Ultimately it will be her decision to make whether she proceeds with laparoscopic cholecystectomy during this hospitalization or elects to proceed with discharge and followup with a general surgeon in the [place] area. I will follow along during her hospitalization and thank you for the opportunity to participate in this pleasant woman's care. MD SHAWN Simmons/MATTHEW /4:56 PM /5:13 PM
[2017-10-21 20:00] VITALS: BP 139/83; PULSE 124; RESP 18; TEMP 98.2; O2SAT 92
[2017-10-21] MEDS: HYDROmorphone HCL PF 2 MG/ML VIAL IV PRN (22:36)
[2017-10-21] MEDS ORDERED: MAGNESIUM SULFATE 1 GM PREMIX 100 ML IV ONE (23:15)
[2017-10-22] VITALS (9 sets, daily range): BP systolic 121–146; BP diastolic 67–86; PULSE 96–119; RESP 17–18; TEMP 97.8–102.5; O2SAT 84–92
[2017-10-22] MEDS: HYDROmorphone HCL PF 2 MG/ML VIAL IV PUSH PRN ×5 (03:53→23:41)
[2017-10-22] MEDS ORDERED: ACETAMINOPHEN 650 MG SUPP RECTAL PRN (04:30)
--- NOTE | 2017-10-22 04:59 | RADRPT ---
EXAM DATE/TIME: 10/22/2017 04:39 [facility] COMPARISON: No previous studies available for comparison. INDICATIONS : Fever. MEDICAL HISTORY : None. SURGICAL HISTORY : None. ENCOUNTER: Initial ACUITY: 1 day PAIN SCORE: Non-responsive. LOCATION: Bilateral chest FINDINGS: Small bilateral pleural effusions are seen with bibasilar consolidation worse on the left. Heart and mediastinum are unremarkable for technique. CONCLUSION: Bilateral pleural effusions and consolidations worse on the left. Sobia Marie MD on October 22, 2017 at 4:57 Board Certified Radiologist. This report was verified electronically.
[2017-10-22 05:14] LABS: AUTOMATED NEUTROPHIL # 11.7 TH/MM3 (1.8-7.7); BASOPHIL % 0.1 % (0.0-2.0); HEMATOCRIT 37.5 % (35.0-46.0); HEMOGLOBIN 12.5 GM/DL (11.6-15.3); LYMPH % 4.2 % (9.0-44.0); LYMPHOCYTE # 0.6 TH/MM3 (1.0-4.8); MEAN CELL VOLUME 87.2 FL (80.0-100.0); MEAN CORPUSCULAR HGB CONC 33.3 % (32.0-36.0); MEAN PLATELET VOLUME 8.4 FL (7.0-11.0); MONO % 6.3 % (0.0-8.0); MONOCYTE # 0.8 TH/MM3 (0-0.9); NEUT % 89.4 % (16.0-70.0); PLATELET COUNT 163 TH/MM3 (150-450); RED CELL DISTRIBUTION WIDTH 14.5 % (11.6-17.2); WHITE BLOOD COUNT 13.1 TH/MM3 (4.0-11.0)
[2017-10-22] MEDS ORDERED: Vancomycin Consult Pharmacy 1 EA OTHER SCH (05:30)
[2017-10-22 05:33] LABS: ALBUMIN 2.4 GM/DL (3.4-5.0); BICARBONATE 27.5 MEQ/L (21.0-32.0); CALCIUM 7.3 MG/DL (8.5-10.1); CALCIUM-PROTEIN CORRECTED 7.9 MG/DL (8.5-10.1); CREATININE 0.78 MG/DL (0.50-1.00); MAGNESIUM 2.6 MG/DL (1.5-2.5); TOTAL BILIRUBIN ADULT 0.7 MG/DL (0.2-1.0); TOTAL PROTEIN 5.9 GM/DL (6.4-8.2)
[2017-10-22] MEDS: PIPERACIL-TAZO 4.5 GM PREMIX 100 ML IV SCH ×3 (06:09→17:22)
[2017-10-22] MEDS: DEXT 5%-NACL 0.45% 1000 ML INJ 1,000 ML IV SCH ×3 (06:09→22:49)
[2017-10-22] MEDS ORDERED: VANCOMYCIN INJ 1,250 MG in SODIUM CHLOR 0.9% 250 ML INJ 250 ML IV SCH (08:00)
[2017-10-22] MEDS: DOCUSATE SODIUM 50 MG/SENNA 8.6 MG TAB PO SCH ×2 (08:54→20:08)
[2017-10-22] MEDS: SODIUM CHLORIDE 0.9% FLUSH 10 ML FLUSH IV FLUSH SCH ×2 (08:54→20:08)
[2017-10-22 09:00] LABS: BACTERIA, URINE FEW /hpf; BILIRUBIN, URINE NEG (NEG); BLOOD, URINE SMALL (NEG); GLUCOSE,URINE TRACE mg/dL (NEG); KETONE, URINE NEG (NEG); MUCUS URINE FEW /lpf (OCC); NITRITE,URINE NEG (NEG); SQUAMOUS EPITHELIAL CELL URINE 6 /hpf (0-5); URINE COLOR YELLOW (YELLW/STRAW); URINE LEUKOCYTE ESTERASE LARGE (NEG)
[2017-10-22] MEDS: ONDANSETRON HCL 4 MG/2 ML VIAL IVP PRN ×3 (09:05→14:48)
--- NOTE | 2017-10-22 09:49 | HHI.PR ---
cc: Garo Medrano MD Subjective Subjective Notes Resting in bed Likes the ice chips Had fever overnight Objective Vitals/I&O Vital Signs Date Time Temp Pulse Resp B/P (MAP) Pulse Ox O2 Delivery O2 Flow Rate FiO2 10/22/17 08:00 100.3 105 17 141/82 (101) 84 10/20/17 05:48 Room Air Labs Laboratory Tests Test 10/22/17 04:35 10/22/17 05:30 10/22/17 08:38 White Blood Count 13.1 Red Blood Count 4.30 Hemoglobin 12.5 Hematocrit 37.5 Mean Corpuscular Volume 87.2 Mean Corpuscular Hemoglobin 29.0 Mean Corpuscular Hemoglobin Concent 33.3 Red Cell Distribution Width 14.5 Platelet Count 163 Mean Platelet Volume 8.4 Neutrophils (%) (Auto) 89.4 Lymphocytes (%) (Auto) 4.2 Monocytes (%) (Auto) 6.3 Eosinophils (%) (Auto) 0.0 Basophils (%) (Auto) 0.1 Neutrophils # (Auto) 11.7 Lymphocytes # (Auto) 0.6 Monocytes # (Auto) 0.8 Eosinophils # (Auto) 0.0 Basophils # (Auto) 0.0 CBC Comment DIFF FINAL Differential Comment Blood Urea Nitrogen 14 Creatinine 0.78 Random Glucose 138 Total Protein 5.9 Albumin 2.4 Calcium Level 7.3 Magnesium Level 2.6 Alkaline Phosphatase 75 Aspartate Amino Transf (AST/SGOT) 41 Alanine Aminotransferase (ALT/SGPT) 43 Total Bilirubin 0.7 Sodium Level 142 Potassium Level 3.6 Chloride Level 108 Carbon Dioxide Level 27.5 Anion Gap 7 Estimat Glomerular Filtration Rate 76 Protein Corrected Calcium 7.9 B-Type Natriuretic Peptide 12 Lipase 1715 Lactic Acid Level 1.3 Urine Color YELLOW Urine Turbidity HAZY Urine pH 6.0 Urine Specific [place] 1.033 Urine Protein 100 Urine Glucose (UA) TRACE Urine Ketones NEG Urine Occult Blood SMALL Urine Nitrite NEG Urine Bilirubin NEG Urine Urobilinogen LESS THAN 2.0 Urine Leukocyte Esterase LARGE Urine RBC 4 Urine WBC 44 Urine Squamous Epithelial Cells 6 Urine Bacteria FEW Urine Mucus FEW Microscopic Urinalysis Comment CULTURE INDICATED Date/Time Source Procedure Growth Status 10/22/17 05:01 Blood Peripheral Aerobic Blood Culture Pending Received 10/22/17 05:01 Blood Peripheral Anaerobic Blood Culture Pending Received 10/22/17 08:38 Urine Clean Catch Urine Culture Pending Received Cardiovascular: Regular Lungs: Clear Abdomen: Other (epigastric and LUQ pain with light palpation ) Extremities: No edema A/P Assessment and Plan 57 year old female with cholelithiasis; acute pancreatitis -Continue IVF -Continue IV pain medications -Ice chips and sips of water -+Fever overnight; will follow blood cultures -OOB and mobilize -Labs including lipase in the morning Attending Statement painful still, dilaudid wears off before next dose due. Thinking about having GB here instead of Chan. Will increase frequency to every 3 hours for dilaudid. Will add ofirmev 1 gram every six hours around the clock. Alie Augustin Oct 22, 2017 09:49 Garo Medrano MD Oct 22, 2017 19:23
[2017-10-22] MEDS: HYDROmorphone HCL PF 2 MG/ML VIAL IV PRN ×2 (11:37→17:30)
--- NOTE | 2017-10-22 13:26 | HHI.GIFU ---
Subjective Remarks Pt continues to have abdominal pain. Remains NPO, reports she has been taking ice chips. (Ethel Carroll) Objective Vitals I&O Vital Signs Date Time Temp Pulse Resp B/P (MAP) Pulse Ox O2 Delivery O2 Flow Rate FiO2 10/22/17 12:00 99.7 103 17 139/86 (103) 88 10/22/17 08:00 100.3 105 17 141/82 (101) 84 10/22/17 06:12 98.7 10/22/17 04:39 102.5 10/22/17 00:00 101.4 119 18 121/67 (85) 92 10/21/17 20:00 98.2 124 18 139/83 (101) 92 10/21/17 16:00 97.6 97 16 127/83 (98) 98 I/O 10/21/17 10/21/17 10/21/17 10/22/17 10/22/17 10/22/17 07:00 15:00 23:00 07:00 15:00 23:00 Intake Total 1774 ml 1100 ml 1100 ml Output Total 250 ml 500 ml 400 ml Balance 1524 ml 600 ml 700 ml Intake Oral 0 ml 0 ml IV Total 1774 ml 1100 ml 1100 ml Output Urine Total 250 ml 500 ml 400 ml # Voids 2 # Bowel Movements 0 Laboratory Laboratory Tests Test 10/22/17 04:35 10/22/17 05:30 10/22/17 08:38 White Blood Count 13.1 Red Blood Count 4.30 Hemoglobin 12.5 Hematocrit 37.5 Mean Corpuscular Volume 87.2 Mean Corpuscular Hemoglobin 29.0 Mean Corpuscular Hemoglobin Concent 33.3 Red Cell Distribution Width 14.5 Platelet Count 163 Mean Platelet Volume 8.4 Neutrophils (%) (Auto) 89.4 Lymphocytes (%) (Auto) 4.2 Monocytes (%) (Auto) 6.3 Eosinophils (%) (Auto) 0.0 Basophils (%) (Auto) 0.1 Neutrophils # (Auto) 11.7 Lymphocytes # (Auto) 0.6 Monocytes # (Auto) 0.8 Eosinophils # (Auto) 0.0 Basophils # (Auto) 0.0 CBC Comment DIFF FINAL Differential Comment Blood Urea Nitrogen 14 Creatinine 0.78 Random Glucose 138 Total Protein 5.9 Albumin 2.4 Calcium Level 7.3 Magnesium Level 2.6 Alkaline Phosphatase 75 Aspartate Amino Transf (AST/SGOT) 41 Alanine Aminotransferase (ALT/SGPT) 43 Total Bilirubin 0.7 Sodium Level 142 Potassium Level 3.6 Chloride Level 108 Carbon Dioxide Level 27.5 Anion Gap 7 Estimat Glomerular Filtration Rate 76 Protein Corrected Calcium 7.9 B-Type Natriuretic Peptide 12 Lipase 1715 Lactic Acid Level 1.3 Urine Color YELLOW Urine Turbidity HAZY Urine pH 6.0 Urine Specific [place] 1.033 Urine Protein 100 Urine Glucose (UA) TRACE Urine Ketones NEG Urine Occult Blood SMALL Urine Nitrite NEG Urine Bilirubin NEG Urine Urobilinogen LESS THAN 2.0 Urine Leukocyte Esterase LARGE Urine RBC 4 Urine WBC 44 Urine Squamous Epithelial Cells 6 Urine Bacteria FEW Urine Mucus FEW Microscopic Urinalysis Comment CULTURE INDICATED Date/Time Source Procedure Growth Status 10/22/17 05:01 Blood Peripheral Aerobic Blood Culture Pending Received 10/22/17 05:01 Blood Peripheral Anaerobic Blood Culture Pending Received 10/22/17 08:38 Urine Clean Catch Urine Culture Pending Received Imaging Last Impressions Chest X-Ray 10/22/17 0000 Signed Impressions: Service Date/Time: Sunday, October 22, 2017 04:39 - CONCLUSION: Bilateral pleural effusions and consolidations worse on the left. KMercy Marie MD Cholangiopancreatography MRI 10/20/17 0000 Signed Impressions: Service Date/Time: Friday, October 20, 2017 15:38 - CONCLUSION: 1. Severe peripancreatic inflammatory change indicating acute pancreatitis. 2. Numerous gallstones in the gallbladder. 3. Common duct diameter is mildly prominent proximally measuring 8 mm. No abnormal filling defect. Chin Griffin MD Abdomen/Pelvis CT 10/20/17 0000 Signed Impressions: Service Date/Time: Friday, October 20, 2017 06:15 - CONCLUSION: Prominent changes of pancreatitis. Gallstones. Tejas Brown MD Gall Bladder Ultrasound 10/19/17 0000 Signed Impressions: Service Date/Time: Friday, October 20, 2017 00:06 - CONCLUSION: Gallbladder adenomyomatosis Dilated common bile duct without clear etiology. Tejas Brown MD Physical Exam HEENT: Normocephalic; atraumatic CHEST: Even/unlabored CARDIAC: RRR ABDOMEN: Firm, distended, diffuse TTP; bowel sounds active x 4. EXTREMITIES: No clubbing, cyanosis, or edema. SKIN: Normal; no rash; no jaundice. SPECIAL EVENTS ASSISTANT: No focal deficits; alert and oriented times three. (Ethel Carroll) Assessment and Plan Plan ASSESSMENT - Pancreatitis most likely secondary to CBD stones. MRCP (10/20) --> Severe peripancreatic inflammatory change indicating acute pancreatitis. Numerous gallstones in gallbladder. Common duct diameter is mildly prominent proximally measuring 8 mm. No abnormal filling defect. Lipase 1715 today from 4449 yesterday. Pt remains NPO on IV fluids. LFTs improving. Reports continued abdominal pain, some relief with pain medication. - Leukocytosis - Continued fever this morning. WBC 13.1. Vancomycin. Zosyn. PLAN - Continue NPO with ice chips for bowel rest - Lipase in AM - Continue antibiotics - Blood cultures pending - General surgery following - Monitor labs - Supportive care - Further recommendations to follow This patient has been seen and examined by myself and Dr. Partida and this note is written on his behalf (Ethel Carroll) Physician Comments Seen and examined, plan as above. Will follow up with you. (Prudence Partida MD) Ethel Carroll Oct 22, 2017 13:26 Prudence Partida MD Oct 22, 2017 14:47
[2017-10-22] MEDS: ACETAMINOPHEN 1000 MG/100 ML 100 ML IV SCH (20:08)
--- NOTE | 2017-10-22 21:37 | HHI.PR ---
Subjective Remarks Patient seen this morning around 11 AM. She reports that pain is improving. Denies any shortness breath. Objective Vital Signs Date Time Temp Pulse Resp B/P (MAP) Pulse Ox O2 Delivery O2 Flow Rate FiO2 10/22/17 20:00 100.3 110 18 146/81 (102) 92 10/22/17 16:00 99.8 97 18 137/78 (97) 90 10/22/17 13:48 100.6 10/22/17 12:00 99.7 103 17 139/86 (103) 88 10/22/17 08:00 100.3 105 17 141/82 (101) 84 10/22/17 06:12 98.7 10/22/17 04:39 102.5 10/22/17 00:00 101.4 119 18 121/67 (85) 92 I/O 10/21/17 10/21/17 10/21/17 10/22/17 10/22/17 10/22/17 07:00 15:00 23:00 07:00 15:00 23:00 Intake Total 1774 ml 1100 ml 1100 ml 0 ml Output Total 250 ml 500 ml 400 ml 825 ml Balance 1524 ml 600 ml 700 ml -825 ml Intake Oral 0 ml 0 ml 0 ml IV Total 1774 ml 1100 ml 1100 ml Output Urine Total 250 ml 500 ml 400 ml 825 ml # Voids 2 # Bowel Movements 0 0 Result Diagram: 10/22/1743410/22/17434 Objective Remarks GENERAL: patient sitting up in bed. Appears comfortable. SKIN: Warm and dry. HEAD: Normocephalic. EYES: No scleral icterus. No injection or drainage. NECK: Supple, trachea midline. No JVD CARDIOVASCULAR: Regular rate and rhythm without murmurs, gallops, or rubs. RESPIRATORY: Breath sounds equal bilaterally. No accessory muscle use. GASTROINTESTINAL: Abdomen soft,nondistended. tenderness to moderate palpation. No rebound or guarding. MUSCULOSKELETAL: No cyanosis, or edema. BACK: Nontender without obvious deformity. No CVA tenderness. A/P Assessment and Plan //Sepsis -Tachycardia, leukocytosis, fever up to 100.6 today. Chest x-ray with pneumonia. Possible cholangitis on imaging. -Switched to broad-spectrum antibiotics. Follow-up cultures. IV fluids. //Bilateral pneumonia. On chest x-ray. Broad-spectrum antibiotics as above. //Acute pancreatitis //Possible cholangitis GI and general surgery following. Appreciate assistance. Continue IV fluids. Discharge Planning continue treatment for sepsis, pancreatitis. GI and general surgery following. Juan Mendoza MD Oct 22, 2017 21:37
[2017-10-22] MEDS: VANCOMYCIN INJ 1,250 MG in SODIUM CHLOR 0.9% 250 ML INJ 250 ML IV SCH (22:49)
[2017-10-23] MEDS: PIPERACIL-TAZO 4.5 GM PREMIX 100 ML IV SCH ×4 (01:14→23:38)
[2017-10-23] MEDS: ACETAMINOPHEN 1000 MG/100 ML 100 ML IV SCH ×4 (02:35→21:06)
[2017-10-23] MEDS: HYDROmorphone HCL PF 2 MG/ML VIAL IV PUSH PRN ×7 (02:35→23:18)
[2017-10-23] MEDS: RESP: ALBUTEROL 2.5 MG/IPRATROPIUM 0.5 MG NEB (SCH) NEB ×4 (02:53→21:29)
[2017-10-23 03:03] VITALS: O2SAT 93
[2017-10-23] MEDS: DEXT 5%-NACL 0.45% 1000 ML INJ 1,000 ML IV SCH ×3 (05:00→23:38)
[2017-10-23 08:00] VITALS: BP 124/72; PULSE 101; RESP 18; TEMP 97.3; O2SAT 92
--- NOTE | 2017-10-23 08:14 | HHI.PR ---
Subjective Subjective Notes still pretty sore, needs every 3 hours dilaudid. Ofirmev helped break her fever. Objective Vitals/I&O Vital Signs Date Time Temp Pulse Resp B/P (MAP) Pulse Ox O2 Delivery O2 Flow Rate FiO2 10/23/17 08:00 97.3 101 18 124/72 (89) 92 10/23/17 03:03 Nasal Cannula 2.00 Labs Laboratory Tests Test 10/22/17 08:38 Urine Color YELLOW Urine Turbidity HAZY Urine pH 6.0 Urine Specific [place] 1.033 Urine Protein 100 Urine Glucose (UA) TRACE Urine Ketones NEG Urine Occult Blood SMALL Urine Nitrite NEG Urine Bilirubin NEG Urine Urobilinogen LESS THAN 2.0 Urine Leukocyte Esterase LARGE Urine RBC 4 Urine WBC 44 Urine Squamous Epithelial Cells 6 Urine Bacteria FEW Urine Mucus FEW Microscopic Urinalysis Comment CULTURE INDICATED Date/Time Source Procedure Growth Status 10/22/17 05:01 Blood Peripheral Aerobic Blood Culture Pending Received 10/22/17 05:01 Blood Peripheral Anaerobic Blood Culture Pending Received 10/22/17 08:38 Urine Clean Catch Urine Culture Pending Received Cardiovascular: Regular Lungs: Clear, Wheezes (mild expiratory wheeze.) Abdomen: Other (mildly distended, soft. Normal BSs. Much less tender to palpation.) Extremities: No edema, Perfused A/P Assessment and Plan Gallstone pancreatitis, slowly resolving. Labs pending this morning. Pt leaning towards surgery here before she goes home. Will follow closely. Attending Statement labs demonstrate normal lipase and very mildly elevated t bili at 1.3. WBC down to normal. Pt distillery worker general. Plan Lap romaine with IOC in AM at 1100. Continue albuterol nebs and give low dose diuretic. Decrease IVFs to 75 ml per hour. D/W pt and significant other. Garo Medrano MD Oct 23, 2017 08:14
[2017-10-23] MEDS: VANCOMYCIN INJ 1,250 MG in SODIUM CHLOR 0.9% 250 ML INJ 250 ML IV SCH ×2 (08:59→21:04)
[2017-10-23] MEDS: SODIUM CHLORIDE 0.9% FLUSH 10 ML FLUSH IV FLUSH SCH ×2 (08:59→21:00)
[2017-10-23] MEDS: DOCUSATE SODIUM 50 MG/SENNA 8.6 MG TAB PO SCH ×2 (09:00→21:05)
[2017-10-23 09:08] LABS: AUTOMATED NEUTROPHIL # 9.4 TH/MM3 (1.8-7.7); BASOPHIL % 0.2 % (0.0-2.0); EOSINOPHIL % 0.1 % (0.0-4.0); HEMATOCRIT 35.1 % (35.0-46.0); LYMPH % 5.3 % (9.0-44.0); LYMPHOCYTE # 0.6 TH/MM3 (1.0-4.8); MEAN CELL VOLUME 86.4 FL (80.0-100.0); MEAN CORPUSCULAR HEMOGLOBIN 29.5 PG (27.0-34.0); MEAN CORPUSCULAR HGB CONC 34.2 % (32.0-36.0); MEAN PLATELET VOLUME 8.6 FL (7.0-11.0); MONO % 7.3 % (0.0-8.0); MONOCYTE # 0.8 TH/MM3 (0-0.9); NEUT % 87.1 % (16.0-70.0); PLATELET COUNT 169 TH/MM3 (150-450); RED BLOOD COUNT 4.06 MIL/MM3 (4.00-5.30); RED CELL DISTRIBUTION WIDTH 14.1 % (11.6-17.2); WHITE BLOOD COUNT 10.8 TH/MM3 (4.0-11.0)
[2017-10-23 09:29] LABS: ALBUMIN 2.1 GM/DL (3.4-5.0); AST (GOT) 40 U/L (15-37); BLOOD UREA NITROGEN 8 MG/DL (7-18); CALCIUM 7.5 MG/DL (8.5-10.1); CHLORIDE 103 MEQ/L (98-107); CREATININE 0.61 MG/DL (0.50-1.00); GLOMERULAR FILTRATION RATE 101 ML/MIN (>89); GLUCOSE,RANDOM 108 MG/DL (74-106); LIPASE 252 U/L (73-393); SODIUM (NA) 138 MEQ/L (136-145)
[2017-10-23 09:30] LABS: ALT (GPT) 34 U/L (10-53)
[2017-10-23 09:33] LABS: ALKALINE PHOSPHATASE 95 U/L (45-117); TOTAL BILIRUBIN ADULT 1.3 MG/DL (0.2-1.0); TOTAL PROTEIN 5.9 GM/DL (6.4-8.2)
[2017-10-23 10:26] VITALS: O2SAT 92
--- NOTE | 2017-10-23 11:58 | HHI.GIFU ---
Subjective Remarks Resting in bed, encouraged to dangle and increase activity Still has complaints of epigastric and mid upper abdominal pain left and right side Mild bloating Low-grade fever (Apple Francisco) Objective Vitals I&O Vital Signs Date Time Temp Pulse Resp B/P (MAP) Pulse Ox O2 Delivery O2 Flow Rate FiO2 10/23/17 10:26 92 Nasal Cannula 2.00 10/23/17 08:00 97.3 101 18 124/72 (89) 92 10/23/17 03:03 93 Nasal Cannula 2.00 10/22/17 23:37 97.8 96 18 141/82 (101) 92 10/22/17 20:00 100.3 110 18 146/81 (102) 92 10/22/17 16:00 99.8 97 18 137/78 (97) 90 10/22/17 13:48 100.6 10/22/17 12:00 99.7 103 17 139/86 (103) 88 I/O 10/22/17 10/22/17 10/22/17 10/23/17 10/23/17 10/23/17 07:00 15:00 23:00 07:00 15:00 23:00 Intake Total 1100 ml 1100 ml 462.5 ml 100 ml Output Total 400 ml 825 ml 825 ml Balance 700 ml 275 ml -362.5 ml 100 ml Intake Oral 0 ml IV Total 1100 ml 1100 ml 462.5 ml 100 ml Output Urine Total 400 ml 825 ml 825 ml # Bowel Movements 0 Laboratory Laboratory Tests Test 10/23/17 08:10 White Blood Count 10.8 Red Blood Count 4.06 Hemoglobin 12.0 Hematocrit 35.1 Mean Corpuscular Volume 86.4 Mean Corpuscular Hemoglobin 29.5 Mean Corpuscular Hemoglobin Concent 34.2 Red Cell Distribution Width 14.1 Platelet Count 169 Mean Platelet Volume 8.6 Neutrophils (%) (Auto) 87.1 Lymphocytes (%) (Auto) 5.3 Monocytes (%) (Auto) 7.3 Eosinophils (%) (Auto) 0.1 Basophils (%) (Auto) 0.2 Neutrophils # (Auto) 9.4 Lymphocytes # (Auto) 0.6 Monocytes # (Auto) 0.8 Eosinophils # (Auto) 0.0 Basophils # (Auto) 0.0 CBC Comment DIFF FINAL Differential Comment Blood Urea Nitrogen 8 Creatinine 0.61 Random Glucose 108 Total Protein 5.9 Albumin 2.1 Calcium Level 7.5 Alkaline Phosphatase 95 Aspartate Amino Transf (AST/SGOT) 40 Alanine Aminotransferase (ALT/SGPT) 34 Total Bilirubin 1.3 Sodium Level 138 Potassium Level 3.2 Chloride Level 103 Carbon Dioxide Level 27.0 Anion Gap 8 Estimat Glomerular Filtration Rate 101 Lipase 252 Date/Time Source Procedure Growth Status 10/22/17 05:01 Blood Peripheral Aerobic Blood Culture - Preliminary NO GROWTH IN 1 DAY Resulted 10/22/17 05:01 Blood Peripheral Anaerobic Blood Culture - Preliminary NO GROWTH IN 1 DAY Resulted 10/22/17 08:38 Urine Clean Catch Urine Culture - Preliminary NO GROWTH IN 24 HOURS. Resulted Imaging Last Impressions Chest X-Ray 10/22/17 0000 Signed Impressions: Service Date/Time: Sunday, October 22, 2017 04:39 - CONCLUSION: Bilateral pleural effusions and consolidations worse on the left. Sobia Marie MD Cholangiopancreatography MRI 10/20/17 0000 Signed Impressions: Service Date/Time: Friday, October 20, 2017 15:38 - CONCLUSION: 1. Severe peripancreatic inflammatory change indicating acute pancreatitis. 2. Numerous gallstones in the gallbladder. 3. Common duct diameter is mildly prominent proximally measuring 8 mm. No abnormal filling defect. Chin Griffin MD Abdomen/Pelvis CT 10/20/17 0000 Signed Impressions: Service Date/Time: Friday, October 20, 2017 06:15 - CONCLUSION: Prominent changes of pancreatitis. Gallstones. Tejas Brown MD Gall Bladder Ultrasound 10/19/17 0000 Signed Impressions: Service Date/Time: Friday, October 20, 2017 00:06 - CONCLUSION: Gallbladder adenomyomatosis Dilated common bile duct without clear etiology. Tejas Brown MD Administered Medications Medications (Trade) Dose Ordered Sig/Yashira Route PRN Reason Start Time Stop Time Status Last Admin Dose Admin Sodium Chloride (NS Flush) 2 ml BID IV FLUSH 10/20/17 09:00 10/20/17 09:04 Ondansetron HCl (Zofran Inj) 4 mg Q6H PRN IVP NAUSEA OR VOMITING 10/20/17 04:15 10/22/17 14:48 Senna/Docusate Sodium (Toshia-Colace) 1 tab BID PO 10/20/17 09:00 10/23/17 09:00 Magnesium Hydroxide (Milk Of Phil[place] Carpio) 30 ml Q12H PRN PO Mild constipation 10/20/17 04:15 10/23/17 09:00 Hydromorphone HCl (Dilaudid Pf Inj) 0.5 mg Q6HR PRN IV BREAKTHROUGH PAIN 10/21/17 12:00 10/22/17 17:30 Dextrose/Sodium Chloride 1,000 ml @ 125 mls/hr Q8H IV 10/21/17 13:00 10/22/17 22:49 Piperacillin Sod/ Tazobactam Sod 100 ml @ 200 mls/hr Q6H IV 10/22/17 06:00 10/23/17 05:36 Vancomycin HCl 1250 mg/Sodium Chloride 262.5 ml @ 250 mls/hr Q12H IV 10/22/17 21:00 10/23/17 08:59 Hydromorphone HCl (Dilaudid Pf Inj) 1 mg Q3HR PRN IV PUSH pain 3-10 10/22/17 19:30 10/23/17 08:58 Acetaminophen 100 ml @ 400 mls/hr Q6H IV 10/22/17 20:00 10/23/17 08:59 Albuterol/ Ipratropium (Duoneb Neb) 1 ampule Q6HR NEB NEB 10/23/17 04:00 10/23/17 10:19 Physical Exam HEENT: Normocephalic; atraumatic CHEST: Even/unlabored CARDIAC: RRR ABDOMEN: taut, bloating; tenderness continues in mid upper left and right quadrants, bowel sounds soft EXTREMITIES: No clubbing, cyanosis, or edema. SKIN: Normal; no rash; no jaundice. SATELLITE SPECIALIST: No focal deficits; alert and oriented times three. Mild anxiety (Apple Francisco) Assessment and Plan Plan ASSESSMENT - Pancreatitis most likely secondary to CBD stones. MRCP (10/20) --> Severe peripancreatic inflammatory change indicating acute pancreatitis. Numerous gallstones in gallbladder. Common duct diameter is mildly prominent proximally measuring 8 mm. No abnormal filling defect. Lipase 1715 today from 4449 yesterday. Pt remains NPO on IV fluids. LFTs 40/34., Mild increase in bilirubin. Reports continued abdominal pain, some relief with pain medication. - Leukocytosis - Continued fever this morning. WBC 13.1. Vancomycin. Zosyn. No BM since Saturday although patient is not able to eat or drink. We'll continue to monitor PLAN - Continue NPO with ice chips for bowel rest - MiraLAX daily - monitor lipase /amylase, - Continue antibiotics - General surgery following , appreciate input Monitor LFTs - Monitor labs - Supportive care - Further recommendations to follow This patient has been seen and examined by myself and Dr. Partida and this note is written on his behalf (Apple Francisco) Physician Comments Minimal improvement since yesterday, slow recovery from acute pancreatitis, will monitor for complications, agree with plan as above. (Prudence Partida MD) Apple Francisco Oct 23, 2017 11:58 Prudence Partida MD Oct 23, 2017 14:19
[2017-10-23 12:00] VITALS: BP 147/77; PULSE 110; RESP 20; TEMP 100; O2SAT 93
[2017-10-23] MEDS: POLYETHYLENE GLYCOL 17 GM PKG PO SCH (12:44)
[2017-10-23 16:00] VITALS: BP 151/83; PULSE 119; RESP 18; TEMP 101.1; O2SAT 90; O2SAT 93
[2017-10-23] MEDS ORDERED: FUROSEMIDE 20 MG/2 ML VIAL IV PUSH ONE (16:30)
--- NOTE | 2017-10-23 17:05 | HHI.PR ---
Subjective Remarks still having abdominal pain 8 out of 10, no nausea or bowel movement, she reported passing flatus, she is afebrile Objective Vitals Vital Signs Date Time Temp Pulse Resp B/P (MAP) Pulse Ox O2 Delivery O2 Flow Rate FiO2 10/23/17 16:00 101.1 119 18 151/83 (105) 90 10/23/17 16:00 93 Nasal Cannula 2.00 10/23/17 12:00 100.0 110 20 147/77 (100) 93 10/23/17 10:26 92 Nasal Cannula 2.00 10/23/17 08:00 97.3 101 18 124/72 (89) 92 10/23/17 03:03 93 Nasal Cannula 2.00 10/22/17 23:37 97.8 96 18 141/82 (101) 92 10/22/17 20:00 100.3 110 18 146/81 (102) 92 I/O 10/22/17 10/22/17 10/22/17 10/23/17 10/23/17 10/23/17 07:00 15:00 23:00 07:00 15:00 23:00 Intake Total 1100 ml 1100 ml 462.5 ml 100 ml Output Total 400 ml 825 ml 825 ml Balance 700 ml 275 ml -362.5 ml 100 ml Intake Oral 0 ml IV Total 1100 ml 1100 ml 462.5 ml 100 ml Output Urine Total 400 ml 825 ml 825 ml # Bowel Movements 0 Result Diagram: 10/23/17 0810 10/23/17 0810 Objective Remarks GENERAL: This is a well-nourished, well-developed patient, in no apparent distress. CARDIOVASCULAR: Regular rate and rhythm without murmurs, gallops, or rubs. RESPIRATORY: Clear to auscultation. Breath sounds equal bilaterally. No wheezes , rales, or rhonchi. GASTROINTESTINAL: Abdomen soft, tender to palpation, nondistended. Normal active bowel sounds MUSCULOSKELETAL: Extremities without clubbing, cyanosis, or edema. NEURO: Alert & Oriented x4 to person, place, time, situation. Moves all ext x4 A/P Assessment and Plan 10/23: Continue iv fluid, antibiotic, bowel rest, follow with surgery and GI A/P: 1. Acute pancreatitis Nothing by mouth IV fluid hydration Patient with transaminitis and elevated common bile duct on ultrasound CT of the abdomen/pelvis pending Dilaudid for pain 2. Hypertension/tachycardia Patient without history of hypertension May be secondary to pain Monitor Discharge Planning Luz Munson MD Oct 23, 2017 17:05
[2017-10-23] MEDS: POTASSIUM CHLOR 20 MEQ PREMIX 100 ML IV SCH ×2 (18:31→21:04)
[2017-10-23 20:00] VITALS: BP 135/82; PULSE 110; RESP 20; TEMP 99.5; O2SAT 91
[2017-10-23] MEDS ORDERED: PHARMACY ORDERED LAB ONE (20:45)
[2017-10-24] VITALS (8 sets, daily range): BP systolic 125–174; BP diastolic 65–82; PULSE 84–100; RESP 17–20; TEMP 96–98.4; O2SAT 91–96
[2017-10-24] MEDS: ACETAMINOPHEN 1000 MG/100 ML 100 ML IV SCH ×4 (01:40→22:01)
[2017-10-24] MEDS: HYDROmorphone HCL PF 2 MG/ML VIAL IV PUSH PRN ×6 (02:16→21:58)
[2017-10-24] MEDS: RESP: ALBUTEROL 2.5 MG/IPRATROPIUM 0.5 MG NEB (SCH) NEB ×4 (04:31→21:56)
[2017-10-24 05:15] LABS: ALT (GPT) 29 U/L (10-53); AST (GOT) 35 U/L (15-37); BLOOD UREA NITROGEN 9 MG/DL (7-18); CALCIUM 7.6 MG/DL (8.5-10.1); CHLORIDE 105 MEQ/L (98-107); CREATININE 0.83 MG/DL (0.50-1.00); GLOMERULAR FILTRATION RATE 71 ML/MIN (>89); GLUCOSE,RANDOM 122 MG/DL (74-106); SODIUM (NA) 142 MEQ/L (136-145)
[2017-10-24 05:17] LABS: ALKALINE PHOSPHATASE 104 U/L (45-117)
[2017-10-24] MEDS: PIPERACIL-TAZO 4.5 GM PREMIX 100 ML IV SCH ×3 (05:33→17:10)
[2017-10-24] MEDS ORDERED: BUPIVACAINE/EPINEPHRINE 0.25% PF 30 ML VIAL ONE (08:22)
[2017-10-24] MEDS: POLYETHYLENE GLYCOL 17 GM PKG PO SCH (08:37)
[2017-10-24] MEDS: DOCUSATE SODIUM 50 MG/SENNA 8.6 MG TAB PO SCH ×2 (08:37→21:57)
[2017-10-24] MEDS: SODIUM CHLORIDE 0.9% FLUSH 10 ML FLUSH IV FLUSH SCH ×2 (08:37→21:59)
[2017-10-24] MEDS ORDERED: PHARMACY ORDERED LAB ONE ×2 (08:45→20:45)
[2017-10-24] MEDS ORDERED: POTASSIUM CHLOR 20 MEQ PREMIX 100 ML IV SCH (09:00)
[2017-10-24] MEDS: VANCOMYCIN INJ 1,250 MG in SODIUM CHLOR 0.9% 250 ML INJ 250 ML IV SCH ×2 (09:49→22:33)
[2017-10-24] MEDS ORDERED: SUGAMMADEX SODIUM 200 MG/2 ML VIAL IV PUSH ONE (10:26)
[2017-10-24] MEDS ORDERED: HYDROmorphone HCL PF 2 MG/ML VIAL ONE (10:28)
[2017-10-24] MEDS ORDERED: POTASSIUM CHLOR 20 MEQ PREMIX 100 ML IV ONE (10:30)
[2017-10-24] MEDS ORDERED: LACTATED RINGER'S 1000 ML INJ 1,000 ML IV ONE (12:00)
[2017-10-24] MEDS ORDERED: ROCURONIUM INJ 50 MG/5 ML SYRINGE IV PUSH ONE (12:00)
[2017-10-24] MEDS ORDERED: PROPOFOL 200 MG/20 ML AMP IV ONE (12:00)
[2017-10-24] MEDS ORDERED: NEOSTIGMINE 5 MG/5 ML SYRINGE IV PUSH ONE (12:00)
[2017-10-24] MEDS ORDERED: LIDOCAINE HCL 1% PF 5 ML SYRINGE OTHER ONE (12:00)
[2017-10-24] MEDS ORDERED: LABETALOL HCL 100 MG/20 ML VIAL IV ONE (12:00)
[2017-10-24] MEDS ORDERED: DEXAMETHASONE SOD PHOS 4 MG/ML VIAL IV ONE (12:00)
[2017-10-24] MEDS ORDERED: GLYCOPYRROLATE 1 MG/5 ML SYRINGE IV PUSH ONE (12:00)
[2017-10-24] MEDS ORDERED: ONDANSETRON HCL 4 MG/2 ML VIAL IV ONE (12:00)
[2017-10-24] MEDS ORDERED: ESMOLOL HCL 100 MG/10 ML VIAL IV ONE (12:00)
[2017-10-24] MEDS ORDERED: GLUCAGON 1 MG/ML VIAL ONE ×2 (12:41→12:45)
--- NOTE | 2017-10-24 12:51 | HHI.PR ---
Subjective Remarks Seen earlier this morning,: For laparoscopic cholecystectomy by surgery Stable, patient been afebrile overnight Objective Vitals Vital Signs Date Time Temp Pulse Resp B/P (MAP) Pulse Ox O2 Delivery O2 Flow Rate FiO2 10/24/17 09:35 93 Nasal Cannula 2.00 10/24/17 08:00 97.4 96 20 139/80 (99) 93 10/24/17 04:34 96 Nasal Cannula 2.00 10/24/17 04:00 97.2 84 20 125/76 (92) 93 10/24/17 00:00 98.4 98 20 146/65 (92) 92 10/23/17 20:00 99.5 110 20 135/82 (99) 91 10/23/17 16:00 101.1 119 18 151/83 (105) 90 10/23/17 16:00 93 Nasal Cannula 2.00 I/O 10/23/17 10/23/17 10/23/17 10/24/17 10/24/17 10/24/17 07:00 15:00 23:00 07:00 15:00 23:00 Intake Total 462.5 ml 562 ml 220 ml Output Total 825 ml 1300 ml Balance -362.5 ml 562 ml -1080 ml Intake Oral 220 ml IV Total 462.5 ml 562 ml Output Urine Total 825 ml 1300 ml # Voids 4 # Bowel Movements 0 0 Result Diagram: 10/23/17 0810 10/24/17 0420 Objective Remarks GENERAL: This is a well-nourished, well-developed patient, in no apparent distress. CARDIOVASCULAR: Regular rate and rhythm without murmurs, gallops, or rubs. RESPIRATORY: Clear to auscultation. Breath sounds equal bilaterally. No wheezes , rales, or rhonchi. GASTROINTESTINAL: Abdomen soft, tender to palpation, nondistended. Normal active bowel sounds MUSCULOSKELETAL: Extremities without clubbing, cyanosis, or edema. NEURO: Alert & Oriented x4 to person, place, time, situation. Moves all ext x4 A/P Assessment and Plan 10/24: Patient has been on iv fluid, antibiotic, bowel rest, appreciate surgery and GI consult, going for laparoscopic cholecystectomy today, will monitor postoperatively Initial A/P: 1. Acute pancreatitis Nothing by mouth IV fluid hydration Patient with transaminitis and elevated common bile duct on ultrasound CT of the abdomen/pelvis pending Dilaudid for pain 2. Hypertension/tachycardia Patient without history of hypertension May be secondary to pain Monitor Discharge Planning Luz Munson MD Oct 24, 2017 12:51
--- NOTE | 2017-10-24 13:27 | RADRPT ---
EXAM DATE/TIME: 10/24/2017 12:48 [facility] COMPARISON: No previous studies available for comparison. INDICATIONS : Gallstone pancreatitis. FLUORO TIME: 0.45 minutes IMAGE COUNT: 3 MEDICAL HISTORY : Pancreatitis. SURGICAL HISTORY : None. ENCOUNTER: Initial ACUITY: 4 - 6 days PAIN SCORE: Non-responsive. LOCATION: Right upper quadrant PROCEDURE: CHOLANGIOGRAM, OPERATIVE 1. Intraoperative cholangiogram. In the operating room, the cystic duct stump was injected and radiographs obtained. The examination demonstrates small filling defects in the distal common bile duct. There is no signif icant contrast progressing into the duodenum. CONCLUSION: Distal common bile duct stones versus debris with very low contrast progressing into the duodenum. Yuriy Vásquez MD on October 24, 2017 at 13:23 Board Certified Radiologist. This report was verified electronically.
[2017-10-24] MEDS ORDERED: DO NOT ADM ANY ANTICOAGULANT DRUGS PRN (13:32)
--- NOTE | 2017-10-24 13:41 | PD.OP ---
Operative Report Date of Surgery: Oct 24, 2017 Preoperative Diagnosis: gallstone pancreatitis Postoperative Diagnosis: same Procedure: lap romaine with IOC Anesthesia: general Surgeon: Garo Medrano Survival Specialist(s): Karley Grajeda Operation and Findings: Ascites, saponification of fat, Gb to path, IOC demonstrated distal CBD obstruction, ? stone vs Edema. EBL less than 10 ml. Garo Medrano MD Oct 24, 2017 13:41
[2017-10-24] MEDS ORDERED: *RESP: ALBUTEROL 2.5 MG/3 ML NEB (PRN) PERIprocedural Use ONLY NEB ONE (13:44)
[2017-10-24] MEDS: DEXT 5%-NACL 0.45% 1000 ML INJ 1,000 ML IV SCH (13:54)
[2017-10-24] MEDS ORDERED: *morphine SULFATE 4 MG/ML PERIprocedure ONLY ONE ×3 (13:56→14:37)
[2017-10-24] MEDS ORDERED: *ONDANSETRON 4 MG VIAL PERIprocedural Use ONLY ONE (13:59)
[2017-10-24] MEDS ORDERED: Post-op Orders (for Pharmacy) XX ONE (14:15)
--- NOTE | 2017-10-24 15:09 | HHI.GIFU ---
Subjective Remarks Pt just returned from cholecystectomy. Ice pack to abdomen, complaining of post surgical pain. Denies nausea and vomiting. (Ethel Carroll) Objective Vitals I&O Vital Signs Date Time Temp Pulse Resp B/P (MAP) Pulse Ox O2 Delivery O2 Flow Rate FiO2 10/24/17 14:42 18 10/24/17 14:42 18 10/24/17 14:30 89 18 158/88 (111) 93 Nasal Cannula 3 10/24/17 14:16 18 10/24/17 14:15 86 18 159/88 (111) Nasal Cannula 3 10/24/17 14:01 18 10/24/17 14:00 90 18 155/88 (110) 93 Nasal Cannula 3 10/24/17 13:45 92 18 152/84 (106) 94 Nasal Cannula 3 10/24/17 13:35 99.0 92 18 149/82 (104) 93 Nasal Cannula 3 10/24/17 09:35 93 Nasal Cannula 2.00 10/24/17 08:00 97.4 96 20 139/80 (99) 93 10/24/17 04:34 96 Nasal Cannula 2.00 10/24/17 04:00 97.2 84 20 125/76 (92) 93 10/24/17 00:00 98.4 98 20 146/65 (92) 92 10/23/17 20:00 99.5 110 20 135/82 (99) 91 10/23/17 16:00 101.1 119 18 151/83 (105) 90 10/23/17 16:00 93 Nasal Cannula 2.00 I/O 10/23/17 10/23/17 10/23/17 10/24/17 10/24/17 10/24/17 07:00 15:00 23:00 07:00 15:00 23:00 Intake Total 462.5 ml 562 ml 220 ml 1000 ml Output Total 825 ml 1300 ml 10 ml Balance -362.5 ml 562 ml -1080 ml 990 ml Intake Oral 220 ml IV Total 462.5 ml 562 ml 1000 ml Output Urine Total 825 ml 1300 ml Estimated Blood Loss 10 ml # Voids 4 # Bowel Movements 0 0 Laboratory Laboratory Tests Test 10/23/17 23:07 10/24/17 04:20 Vancomycin Level Trough 49.7 Blood Urea Nitrogen 9 Creatinine 0.83 Random Glucose 122 Total Protein 6.0 Albumin 2.0 Calcium Level 7.6 Alkaline Phosphatase 104 Aspartate Amino Transf (AST/SGOT) 35 Alanine Aminotransferase (ALT/SGPT) 29 Total Bilirubin 1.0 Sodium Level 142 Potassium Level 3.4 Chloride Level 105 Carbon Dioxide Level 31.0 Anion Gap 6 Estimat Glomerular Filtration Rate 71 Lipase 152 Date/Time Source Procedure Growth Status 10/22/17 05:01 Blood Peripheral Aerobic Blood Culture - Preliminary NO GROWTH IN 2 DAYS Resulted 10/22/17 05:01 Blood Peripheral Anaerobic Blood Culture - Preliminary NO GROWTH IN 2 DAYS Resulted 10/22/17 08:38 Urine Clean Catch Urine Culture - Final NO GROWTH IN 48 HOURS. Complete Imaging Last Impressions Cholangiogram 10/24/17 0000 Signed Impressions: Service Date/Time: September 12:48 - CONCLUSION: Distal common bile duct stones versus debris with very low contrast progressing into the duodenum. Yuriy Vásquez MD Chest X-Ray 10/22/17 0000 Signed Impressions: Service Date/Time: Sunday, October 22, 2017 04:39 - CONCLUSION: Bilateral pleural effusions and consolidations worse on the left. Sobia Marie MD Cholangiopancreatography MRI 10/20/17 0000 Signed Impressions: Service Date/Time: Friday, October 20, 2017 15:38 - CONCLUSION: 1. Severe peripancreatic inflammatory change indicating acute pancreatitis. 2. Numerous gallstones in the gallbladder. 3. Common duct diameter is mildly prominent proximally measuring 8 mm. No abnormal filling defect. Chin Griffin MD Abdomen/Pelvis CT 10/20/17 0000 Signed Impressions: Service Date/Time: Friday, October 20, 2017 06:15 - CONCLUSION: Prominent changes of pancreatitis. Gallstones. Tejas Brown MD Gall Bladder Ultrasound 10/19/17 0000 Signed Impressions: Service Date/Time: Friday, October 20, 2017 00:06 - CONCLUSION: Gallbladder adenomyomatosis Dilated common bile duct without clear etiology. Tejas Brown MD Physical Exam HEENT: Normocephalic; atraumatic CHEST: Even/unlabored CARDIAC: RRR ABDOMEN: Deferred exam due to pt just returned from cholecystectomy, ice pack to abdomen at time of my exam. EXTREMITIES: No clubbing, cyanosis, or edema. SKIN: Normal; no rash; no jaundice. LASER/ELECTRO OPTICS TECHNICIAN: No focal deficits; alert and oriented times three. (Ethel Carroll) Assessment and Plan Plan ASSESSMENT - Pancreatitis most likely secondary to CBD stones. MRCP (10/20) --> Severe peripancreatic inflammatory change indicating acute pancreatitis. Numerous gallstones in gallbladder. Common duct diameter is mildly prominent proximally measuring 8 mm. No abnormal filling defect. S/P cholecystectomy. Cholangiogram (10/24) --> Distal common bile duct stones versus debris with very low contrast progressing into the duodenum. LFTs and lipase improving. Per GS pt can have clear liquids today. Will do ERCP tomorrow. - Leukocytosis - Improving. Afebrile today. WBC 10.8. Vancomycin. Zosyn. PLAN - ERCP tomorrow - Obtain consents - NPO after MN - MiraLAX daily - Monitor labs - Continue antibiotics - GS following- S/P cholecystectomy done today - Pain control - Supportive care - Further recommendations to follow This patient has been seen and examined by myself and Dr. Partida and this note is written on his behalf (Ethel Carroll) Physician Comments As above, intra op cholangiogram showed evidence of stone/sludge. Will plan ERCP in AM. (Prudence Partida MD) Ethel Carroll Oct 24, 2017 15:09 Prudence Partida MD Oct 24, 2017 15:11
[2017-10-24] MEDS ORDERED: SODIUM CHLORID 0.9% 500 ML IV PRN (21:30)
[2017-10-24] MEDS ORDERED: LACTATED RINGER'S 1000 ML IV PRN ×2 (21:30→23:45)
--- NOTE | 2017-10-24 22:37 | MP ---
cc: JOSE MARSH MD, MOHAMMAD A. MD DATE OF SURGERY 10/24/17 PREOPERATIVE DIAGNOSIS Gallstone pancreatitis POSTOPERATIVE DIAGNOSIS Gallstones pancreatitis with distal common bile duct obstruction. PROCEDURE Laparoscopic cholecystectomy with intraoperative cholangiography. SURGEON Dr. Toi Marsh ANESTHESIA General endotracheal INDICATIONS This is a pleasant 57-year-old woman who was admitted with diagnosis of pancreatitis. She was found to have findings suggestive of gallstones as an etiology. Her liver function tests, amylase and lipase were initially elevated. They have now returned to normal. She still has some abdominal discomfort but is significantly improved. INTRAOPERATIVE FINDINGS Bile-stained ascites. Saponification of fat in the peritoneum. Gallbladder with inflammatory changes removed and sent to pathology. Intraoperative cholangiography demonstrated distal common bile duct obstruction, question stone versus edema. ESTIMATED BLOOD LOSS Less than 10 mL PROCEDURE IN DETAIL The patient is identified as Ruby Mcgraw, taken to the operating room and placed in supine position. Sequential compression devices were placed on bilateral lower extremities. Following induction of adequate general endotracheal anesthesia, the patient's abdomen was prepped and draped in usual sterile fashion with Betadine. A time-out procedure was performed. Following completion of time-out procedure to everyone's satisfaction within the room, local anesthetic was placed at each incision site. Incision about 4-6 cm above the umbilicus vertical in nature 3 cm in length was carried out with a scalpel. Dissection continued posterior to the level of the midline fascia. This was incised with a scalpel and entry into peritoneal cavity was facilitated with the surgeon's finger. The applied medical balloon Noah trocar was placed in the peritoneal cavity, its balloon inflated to insufflation until the level of 15 mmHg ensued. The patient was placed in a reverse Trendelenburg position, turned to the left and three upper abdominal 5 mm trocars were placed, two in the upper midline, one in the right lateral abdomen. This was performed under direct laparoscopic view after incision in the skin with a scalpel. There was bilious ascites which was suctioned out. The gallbladder was identified, had inflammatory changes but no inflammatory adhesions. It was removed from the gallbladder fossa in a dome down technique using the harmonic scalpel. The cystic artery was divided with the harmonic scalpel. The cystic duct was isolated from the surrounding tissues. A 0-PDS Endoloop was placed across the gallbladder cystic duct junction. Scissor was used to create a small opening in the cystic duct just distal to the ligature and the percutaneous introducer for the cholangiogram catheter was introduced in the right upper quadrant in subcostal position after incision of the skin with a scalpel and placement of local anesthetic. The applied medical cholangiogram catheter was placed in the cystic duct, its disk activated and saline flushed. There was leakage of saline around the catheter. Therefore, the catheter was withdrawn from the cystic duct and Endoloop was placed down around the catheter and the catheters were placed in the cystic duct, the disk activated and the PDS Endoloop placed around the catheter proximal to the disk. Saline was then flushed and there was no leak. Intraoperative cholangiogram was then performed with full strength contrast with the above-mentioned findings. Proximal ducts appeared normal. There were no obvious filling defects within the common bile duct, but the distal duct was obstructed. One mg of Glucagon was obtained and the Glucagon was given intravenously and was allowed to circulate for 5 minutes. Intraoperative cholangiogram was again taken and no drainage of contrast into the duodenum was identified. The cholangiogram was then completed. The cholangiogram catheter was removed from the cystic duct and the distal duct was ligated with an additional 0-PDS Endoloop. Where the duct had been jaci sected, it was completely divided, the gallbladder placed into an Endo retriever bag and removed through the camera port incision site, passed off the field for pathologic evaluation. All ascitic fluid I could suctioned out was suctioned out. The gallbladder fossa was examined. There was a small amount of ooze. The cystic duct ligature remained intact. The cystic arterial stump was hemostatic. Surgicel powder was placed into the gallbladder fossa. Trocars were removed under direct visualization. There was no evidence of bleeding from trocar sites. The abdomen was desufflated through the supraumbilical port which was then removed. Supraumbilical fascial incision was closed with interrupted 0 Vicryl sutures. Port sites were irrigated with saline and skin incisions were approximated with 4-0 Monocryl subcuticular sutures and Mastisol and 1/2" Steri-Strips. The patient tolerated the procedure without apparent complication. Sponge, needle and instrument counts were correct at the end of the case. Jose G. Ramshaw, MD DGR/ /1:24 PM /9:58 PM
[2017-10-25] VITALS (7 sets, daily range): BP systolic 135–160; BP diastolic 80–90; PULSE 92–98; RESP 17–21; TEMP 97.1–99; O2SAT 92–98
[2017-10-25] MEDS: PIPERACIL-TAZO 4.5 GM PREMIX 100 ML IV SCH ×5 (00:31→23:42)
[2017-10-25] MEDS: HYDROmorphone HCL PF 2 MG/ML VIAL IV PUSH PRN ×3 (00:35→22:07)
[2017-10-25] MEDS: SODIUM CHLORIDE 0.9% FLUSH 10 ML FLUSH IV FLUSH PRN ×2 (00:35→05:43)
[2017-10-25] MEDS: ACETAMINOPHEN 1000 MG/100 ML 100 ML IV SCH ×3 (02:44→14:39)
[2017-10-25] MEDS: DEXT 5%-NACL 0.45% 1000 ML INJ 1,000 ML IV SCH ×2 (03:14→16:34)
[2017-10-25] MEDS: RESP: ALBUTEROL 2.5 MG/IPRATROPIUM 0.5 MG NEB (SCH) NEB ×3 (03:20→20:14)
[2017-10-25 07:42] LABS: ALBUMIN 1.9 GM/DL (3.4-5.0); ALKALINE PHOSPHATASE 164 U/L (45-117); ALT (GPT) 53 U/L (10-53); AST (GOT) 103 U/L (15-37); BICARBONATE 29.8 MEQ/L (21.0-32.0); BLOOD UREA NITROGEN 9 MG/DL (7-18); CALCIUM 8.1 MG/DL (8.5-10.1); CHLORIDE 105 MEQ/L (98-107); CREATININE 0.69 MG/DL (0.50-1.00); GLOMERULAR FILTRATION RATE 88 ML/MIN (>89); GLUCOSE,RANDOM 143 MG/DL (74-106); LIPASE 99 U/L (73-393); SODIUM (NA) 143 MEQ/L (136-145); TOTAL BILIRUBIN ADULT 1.2 MG/DL (0.2-1.0)
[2017-10-25] MEDS ORDERED: IOHEXOL 300 MG/ML 50 ML BTL (for RAD DIAG) OTHER ONE (08:58)
[2017-10-25] MEDS: POLYETHYLENE GLYCOL 17 GM PKG PO SCH (09:00)
[2017-10-25] MEDS: VANCOMYCIN INJ 1,250 MG in SODIUM CHLOR 0.9% 250 ML INJ 250 ML IV SCH ×2 (09:00→22:04)
[2017-10-25] MEDS: SODIUM CHLORIDE 0.9% FLUSH 10 ML FLUSH IV FLUSH SCH ×2 (09:00→21:00)
[2017-10-25] MEDS: DOCUSATE SODIUM 50 MG/SENNA 8.6 MG TAB PO SCH ×2 (09:00→21:00)
--- NOTE | 2017-10-25 09:37 | GIPROC ---
[facility] [address] [facility]. [facility], [address] ERCP PROCEDURE REPORT EXAM DATE: 10/25/2017 PATIENT NAME: Ruby Mcgraw MR #: [id number] BIRTHDATE: 1960 ATTENDING: Prudence Partida MD ORDER #: [id number] SUSTAINABILITY COMMUNICATOR: Chandni Deutsch and Mary Luis STATUS: inpatient INDICATIONS: The patient is a 57 yr old female here for an ERCP due to filling defect on intraoperative cholangiogram PROCEDURE PERFORMED: ERCP MEDICATIONS: None and Per Anesthesia. CONSENT: The patient understands the risks and benefits of the procedure and understands that these risks include, but are not limited to: sedation, allergic reaction, infection, perforation and/or bleeding. Alternative means of evaluation and treatment include, among others: physical exam, x-rays, and/or surgical intervention. The patient elects to proceed with this endoscopic procedure. medical equipment was checked for proper function. Hand hygiene and appropriate measures for infection prevention was taken. After the risks, benefits and alternatives of the procedure were thoroughly explained, Informed was verified, confirmed and timeout was successfully executed by the treatment team. With the patient in left semi-prone position, medications were administered intravenously.The Pentax [id number] was passed from the mouth into the esophagus and further advanced from the esophagus into the stomach. From stomach scope was directed to the second portion of the duodenum. Major papilla was aligned with the duodenoscope. The scope position was confirmed fluoroscopically. Rest of the findings/therapeutics are given below. The scope was then completely withdrawn from the patient and the procedure completed. The pulse, BP, and O2 saturation were monitored and documented by the physician and the nursing staff throughout the entire procedure. The patient was cared for as planned according to standard protocol. The patient was then discharged to recovery in stable condition and with appropriate post procedure care. The ampulla was located the second portion of the duodenum. The ampulla appeared normal. Failed free cannulation. ADVERSE EVENT: There were no complications. IMPRESSIONS: 1. Normal appearing ampulla 2. Failed free cannulation RECOMMENDATIONS: Consult IR for PTC REPEAT EXAM: NONE Prudence Partida MD eSigned: Prudence Partida MD 10/25/2017 9:36 AM cc:
[2017-10-25] MEDS ORDERED: *RESP: ALBUTEROL 2.5 MG/3 ML NEB (PRN) PERIprocedural Use ONLY NEB ONE (09:49)
[2017-10-25] MEDS ORDERED: MIDAZOLAM HCL 2 MG/2 ML VIAL ONE (09:54)
[2017-10-25] MEDS ORDERED: *LABETALOL HCL 100 MG/20 ML VIAL PERIprocedural Use ONLY ONE (10:03)
[2017-10-25] MEDS ORDERED: *HYDROmorphone PF 1 MG VIAL PERIprocedural Use ONLY ONE (11:19)
[2017-10-25] MEDS ORDERED: GLYCOPYRROLATE 1 MG/5 ML SYRINGE IV PUSH ONE ×2 (12:00)
[2017-10-25] MEDS ORDERED: ONDANSETRON HCL 4 MG/2 ML VIAL IV ONE ×2 (12:00)
[2017-10-25] MEDS ORDERED: LIDOCAINE HCL 1% PF 5 ML SYRINGE OTHER ONE ×2 (12:00)
[2017-10-25] MEDS ORDERED: ROCURONIUM INJ 50 MG/5 ML SYRINGE IV PUSH ONE ×2 (12:00)
[2017-10-25] MEDS: POTASSIUM CHLOR 20 MEQ PREMIX 100 ML IV SCH ×2 (12:00→15:12)
[2017-10-25] MEDS ORDERED: PROPOFOL 200 MG/20 ML AMP IV ONE ×2 (12:00)
[2017-10-25] MEDS ORDERED: NEOSTIGMINE 5 MG/5 ML SYRINGE IV PUSH ONE ×2 (12:00)
[2017-10-25] MEDS ORDERED: DEXAMETHASONE SOD PHOS 4 MG/ML VIAL IV ONE (12:00)
[2017-10-25] MEDS ORDERED: hydrALAZINE HCL 20 MG/ML VIAL IV ONE (12:00)
--- NOTE | 2017-10-25 12:22 | HHI.PR ---
Subjective Remarks Pt seen in PACU s/p ERCP due to filling defect on intraoperative cholangiogram. Failed free cannulation. IR has been consulted for PTC Pt states that her pain is mainly epigastric and when I palpate it goes up to 7/ 10, no nausea or vomiting. no CP/SOB Objective Vitals Vital Signs Date Time Temp Pulse Resp B/P (MAP) Pulse Ox O2 Delivery O2 Flow Rate FiO2 10/25/17 09:50 95 Nasal Cannula 2.00 10/25/17 03:21 95 Nasal Cannula 2.00 10/25/17 00:00 97.1 92 17 135/80 (98) 92 10/24/17 21:57 94 Nasal Cannula 2.00 10/24/17 20:00 96.0 100 17 140/82 (101) 91 10/24/17 16:00 96.6 96 20 174/82 (112) 94 10/24/17 14:42 18 10/24/17 14:42 18 10/24/17 14:30 89 18 158/88 (111) 93 Nasal Cannula 3 10/24/17 14:16 18 10/24/17 14:15 86 18 159/88 (111) Nasal Cannula 3 10/24/17 14:01 18 10/24/17 14:00 90 18 155/88 (110) 93 Nasal Cannula 3 10/24/17 13:45 92 18 152/84 (106) 94 Nasal Cannula 3 10/24/17 13:35 99.0 92 18 149/82 (104) 93 Nasal Cannula 3 I/O 10/24/17 10/24/17 10/24/17 10/25/17 10/25/17 10/25/17 07:00 15:00 23:00 07:00 15:00 23:00 Intake Total 220 ml 1000 ml 360 ml 900 ml Output Total 1300 ml 10 ml Balance -1080 ml 990 ml 360 ml 900 ml Intake Oral 220 ml 360 ml IV Total 1000 ml Other 900 ml Output Urine Total 1300 ml Estimated Blood Loss 10 ml # Voids 5 3 # Bowel Movements 0 0 Result Diagram: 10/23/17 0810 10/25/17 0651 Imaging Last Impressions Cholangiogram 10/24/17 0000 Signed Impressions: Service Date/Time: September 12:48 - CONCLUSION: Distal common bile duct stones versus debris with very low contrast progressing into the duodenum. Yuriy Vásquez MD Chest X-Ray 10/22/17 0000 Signed Impressions: Service Date/Time: Sunday, October 22, 2017 04:39 - CONCLUSION: Bilateral pleural effusions and consolidations worse on the left. Sobia Marie MD Cholangiopancreatography MRI 10/20/17 0000 Signed Impressions: Service Date/Time: Friday, October 20, 2017 15:38 - CONCLUSION: 1. Severe peripancreatic inflammatory change indicating acute pancreatitis. 2. Numerous gallstones in the gallbladder. 3. Common duct diameter is mildly prominent proximally measuring 8 mm. No abnormal filling defect. Chin Griffin MD Abdomen/Pelvis CT 10/20/17 0000 Signed Impressions: Service Date/Time: Friday, October 20, 2017 06:15 - CONCLUSION: Prominent changes of pancreatitis. Gallstones. Tejas Brown MD Gall Bladder Ultrasound 10/19/17 0000 Signed Impressions: Service Date/Time: Friday, October 20, 2017 00:06 - CONCLUSION: Gallbladder adenomyomatosis Dilated common bile duct without clear etiology. Tejas Brown MD Objective Remarks GENERAL: This is a well-nourished, well-developed patient CARDIOVASCULAR: Regular rate and rhythm without murmurs RESPIRATORY: Clear to auscultation. Breath sounds equal bilaterally. No wheezes GASTROINTESTINAL: Abdomen soft, tender to palpation, somewhat distended. no guarding MUSCULOSKELETAL: moves lower extremities. NEURO: Alert & Oriented A/P Assessment and Plan 1. Pt presented w Acute pancreatitis currently NPO IV fluid hydration Patient with transaminitis and elevated common bile duct on ultrasound s/p Laparoscopic cholecystectomy with intraoperative cholangiography 09/24 Intraoperative cholangiography demonstrated distal common bile duct obstruction , question stone versus edema.. GI consulted and she is s/p ERCP due to filling defect on intraoperative cholangiogram. Failed free cannulation. IR consulted for PTC and scheduled for later today. Currently in PACU. on vanco and zosyn IV Dilaudid for pain. 2. Hypertension/tachycardia Patient without history of hypertension May be secondary to pain or anxiety. added vasotec prn. She did get a dose of labetalol in PACU. If persistent, will need to add po regimen. Monitor 3. Hypokalemia 3.1 today. check Mg level. Replace w 20mEq IV x 2 now. Replace w PO once tolerated po Discharge Planning d/c pending clinical improvement and clearance from all consultants scheduled for PTC w IR today Leelee Goins MD Oct 25, 2017 12:22
[2017-10-25] MEDS ORDERED: DO NOT ADM ANY ANTICOAGULANT DRUGS PRN (13:00)
[2017-10-25] MEDS ORDERED: RESP: ALBUTEROL 2.5 MG/3 ML NEB (PRN) ONE (14:07)
[2017-10-25] MEDS ORDERED: IOHEXOL 350 MG/ML 100 ML BTL (for RAD DIAG) OTHER ONE (14:12)
[2017-10-25] MEDS ORDERED: methylPREDNISolone SOD SUCC 125 MG/2 ML VIAL ONE (14:27)
[2017-10-25] MEDS: RESP: ALBUTEROL 2.5 MG/IPRATROPIUM 0.5 MG NEB (PRN) NEB ×2 (14:30→19:08)
[2017-10-25] MEDS ORDERED: methylPREDNISolone SOD SUCC 125 MG/2 ML VIAL IV PRN (15:00)
--- NOTE | 2017-10-25 16:03 | RADRPT ---
EXAM DATE/TIME: 10/25/2017 13:32 [facility] COMPARISON: No previous studies available for comparison. INDICATIONS : Patient presents with pancreatitis and gallstones in need of biliary drain placement. MEDICAL HISTORY : N/A SURGICAL HISTORY : Left bunion surgery Right knee surgery Tummy tuck Breast lift ENCOUNTER: Initial ACUITY: 2 days PAIN SCORE: 5/10 LOCATION: Right upper quadrant FLUORO TIME: 17.6 minutes IMAGE SERIES: 2 CONTRAST: 45 cc Omnipaque (iohexol) 350 DEVICE(S): 1.) 8 [place] 35CM internal/external biliary drain Anesthesia and pain control was provided by the Anesthesia department. PROCEDURE : 1. Ultrasound guided puncture of the biliary tree. 2. Percutaneous antegrade cholangiogram. 3. Biliary stent placement. 4. Conscious sedation with continuous EKG and oximetry monitoring. The risks, benefits and alternatives to the procedure were explained and verbal and written consent w as obtained. The site was prepped in sterile fashion. Full sterile technique was used, including ca p, mask, sterile gloves and gown and a large sterile sheet. Hand hygiene and 2% chlorhexidine and/or betadine/alcohol prep was utilized per protocol for cutaneous antisepsis. Sterile gel and sterile p robe cover were utilized for ultrasound guidance. The skin and subcutaneous tissues were infiltrated with local anesthetic solution. With ultrasound and fluoroscopic guidance the biliary tree was punctured with a 22 gauge Chiba needle and the biliary tree was opacified. An Accustick set was used to gain access to the biliary tree and a guidewire was passed into the duodenum. Serial dilatation was performed to accept the prescribed catheter. Injection of positive contrast demonstrates appropriate position. Anesthesia Department representatives were present and performed general anesthesia for the procedure . The patient tolerated the procedure well and there were no complications. The patient was sent to [facility] anesthesia recovery in stable condition. CONCLUSION: Uncomplicated biliary stent placement as above. Tejas Brown MD on October 25, 2017 at 15:49 Board Certified Radiologist. This report was verified electronically.
--- NOTE | 2017-10-25 16:04 | RADRPT ---
EXAM DATE/TIME: 10/25/2017 15:44 [facility] COMPARISON: CHEST SINGLE AP, October 22, 2017, 4:39. INDICATIONS : Shortness of breath. MEDICAL HISTORY : None. SURGICAL HISTORY : None. ENCOUNTER: Initial ACUITY: 1 day PAIN SCORE: 0/10 LOCATION: chest FINDINGS: There is worsening hazy basilar pleuroparenchymal opacity which has appearance of parenchymal disease and layering effusion. Cardiac contours are grossly stable. CONCLUSION: Worsening basilar pleural-parenchymal opacities. Tejas Brown MD on October 25, 2017 at 16:02 Board Certified Radiologist. This report was verified electronically.
[2017-10-25] MEDS ORDERED: FUROSEMIDE 20 MG/2 ML VIAL ONE (16:34)
--- NOTE | 2017-10-25 16:43 | HHI.PR ---
Addendum to Inpatient Note Addendum Reason: Additional Documentation Additional Information I was paged around 4pm as pt's respiratory status had worsened post IR procedure. Pt was on a non rebreather at 15L. I evaluated the patient then and she was talking but telling me that she had a hard time taking deep breaths. Sats were in the low 90's. STAT ABG showed pH of 7.49, CO2 39 and HCO3 29. Chest x-ray reviewed by me, did show worsening bibasilar pleural-parenchymal opacities. Pt now on a simple mask. still satting 93% mild expiratory wheezes were auscultated when I examined her but she just had received breathing treatment. Will give a one time dose of lasix w some supplemental potassium. Continue IV abx. Monitor kidney function. Pt is alert and awake. Able to communicate w me. If pt's condition improves, will go ahead and transfer her back to her room, if it doesn't will transfer to [facility] for closer monitoring overnight. Leelee Goins MD Oct 25, 2017 16:43
[2017-10-25] MEDS ORDERED: POTASSIUM CHLORIDE 20 MEQ CONTROLLED RELEASE TAB PO ONE (16:45)
[2017-10-25] MEDS ORDERED: FUROSEMIDE 40 MG/4 ML VIAL IV PUSH ONE (16:45)
--- NOTE | 2017-10-25 16:57 | PD.RAD ---
Post Procedure Progress Note Pre Procedure Diagnosis: (1) Biliary calculi, common bile duct (2) Acute pancreatitis Post Procedure Diagnosis: (1) Biliary calculi, common bile duct (2) Acute pancreatitis Procedure Date: Oct 25, 2017 Supervising Radiologist: Tejas Brown Proceduralist/Assist: RT Alicia(R)(CV) Estimated blood loss: 10ml Anesthesia: General Plan of Activity Patient to Unit: PACU Patient Condition: Good See PACS Report for procedural detail/treatment Drainage Procedure Procedure 1 Imaging Guidance: Fluoroscopy, Ultrasound Side: Right Procedure Type: Biliary Drainage Procedure: Placement Azerbaijani: 8 Drainage: [place] drainage Fluid Description: Bilious Additional Detail: internal/external biliary stent placed Tejas Brown MD Oct 25, 2017 16:57
[2017-10-26] VITALS (14 sets, daily range): BP systolic 138–175; BP diastolic 64–94; PULSE 80–128; RESP 16–30; TEMP 98–101.6; O2SAT 91–99
[2017-10-26] MEDS: ACETAMINOPHEN 1000 MG/100 ML 100 ML IV SCH ×4 (01:14→20:09)
[2017-10-26] MEDS: ONDANSETRON HCL 4 MG/2 ML VIAL IVP PRN ×3 (01:31→20:23)
[2017-10-26] MEDS: RESP: ALBUTEROL 2.5 MG/IPRATROPIUM 0.5 MG NEB (SCH) NEB ×4 (03:00→19:54)
[2017-10-26 05:28] LABS: BASOPHIL % 0.3 % (0.0-2.0); HEMATOCRIT 35.1 % (35.0-46.0); HEMOGLOBIN 11.9 GM/DL (11.6-15.3); LYMPHOCYTE # 0.6 TH/MM3 (1.0-4.8); MEAN CELL VOLUME 86.6 FL (80.0-100.0); MEAN CORPUSCULAR HEMOGLOBIN 29.4 PG (27.0-34.0); MEAN CORPUSCULAR HGB CONC 33.9 % (32.0-36.0); MEAN PLATELET VOLUME 8.7 FL (7.0-11.0); MONO % 8.4 % (0.0-8.0); MONOCYTE # 1.1 TH/MM3 (0-0.9); NEUT % 86.3 % (16.0-70.0); PLATELET COUNT 233 TH/MM3 (150-450); RED BLOOD COUNT 4.05 MIL/MM3 (4.00-5.30); RED CELL DISTRIBUTION WIDTH 14.2 % (11.6-17.2)
[2017-10-26] MEDS: PIPERACIL-TAZO 4.5 GM PREMIX 100 ML IV SCH ×4 (05:30→22:19)
[2017-10-26 05:31] LABS: WHITE BLOOD COUNT 12.7 TH/MM3 (4.0-11.0)
[2017-10-26 05:34] LABS: ALT (GPT) 69 U/L (10-53); AST (GOT) 115 U/L (15-37); BICARBONATE 31.1 MEQ/L (21.0-32.0); CHLORIDE 104 MEQ/L (98-107); GLOMERULAR FILTRATION RATE 65 ML/MIN (>89); GLUCOSE,RANDOM 159 MG/DL (74-106); SODIUM (NA) 142 MEQ/L (136-145)
[2017-10-26 05:37] LABS: ALKALINE PHOSPHATASE 210 U/L (45-117); TOTAL BILIRUBIN ADULT 0.7 MG/DL (0.2-1.0); TOTAL PROTEIN 6.5 GM/DL (6.4-8.2)
[2017-10-26 05:41] LABS: BLOOD UREA NITROGEN 13 MG/DL (7-18)
[2017-10-26 06:45] LABS: BANDS 9 % (0-6); LYMPHOCYTES 4 % (9-44); MONOCYTES 8 % (0-8); NEUTROPHIL # MANUAL DIFF 11.2 TH/MM3 (1.8-7.7); POLYS (SEG NEUTROPHILS) 78 % (16-70); PROMYELOCYTES 1 % (0-0)
[2017-10-26 06:46] LABS: TOXIC GRANULATION 1+ (NORMAL)
[2017-10-26] MEDS: DEXT 5%-NACL 0.45% 1000 ML INJ 1,000 ML IV SCH ×2 (07:19→19:14)
[2017-10-26] MEDS: POLYETHYLENE GLYCOL 17 GM PKG PO SCH (07:40)
[2017-10-26] MEDS: ENALAPRILAT 1.25 MG/ML VIAL IV PUSH PRN (07:40)
[2017-10-26] MEDS: DOCUSATE SODIUM 50 MG/SENNA 8.6 MG TAB PO SCH ×2 (07:40→21:00)
[2017-10-26] MEDS: HYDROmorphone HCL PF 2 MG/ML VIAL IV PUSH PRN ×6 (08:20→23:16)
[2017-10-26] MEDS: VANCOMYCIN INJ 1,250 MG in SODIUM CHLOR 0.9% 250 ML INJ 250 ML IV SCH ×2 (08:20→22:19)
[2017-10-26] MEDS ORDERED: hydrALAZINE HCL 10 MG TAB PO PRN (08:45)
--- NOTE | 2017-10-26 08:47 | HHI.PR ---
Subjective Remarks Pt feeling better. Down to NC at 6L. had some nausea but resolved w zofran. No vomiting. Has pain but just got some pain med Objective Vitals Vital Signs Date Time Temp Pulse Resp B/P (MAP) Pulse Ox O2 Delivery O2 Flow Rate FiO2 10/26/17 08:00 98.2 89 28 172/86 (114) 96 10/26/17 07:00 95 Nasal Cannula 6.00 Non-Rebreather 10/26/17 06:00 84 10/26/17 04:00 99.2 86 16 175/81 (112) 95 10/26/17 04:00 86 10/26/17 02:00 80 10/26/17 00:00 99.0 88 18 169/94 (119) 99 10/25/17 20:14 98 Non-Rebreather 15.00 10/25/17 20:00 99.0 98 21 160/90 (113) 96 10/25/17 19:00 98.7 97 22 157/90 (112) 95 Non-Rebreather 15 10/25/17 18:30 90 22 172/88 (116) 96 Non-Rebreather 15 10/25/17 18:00 97 Venturi Mask 50 10/25/17 18:00 92 22 170/89 (116) 91 Nasal Cannula 4 Aerosol Mask 10/25/17 17:30 92 22 170/89 (116) 91 Nasal Cannula 4 10/25/17 16:55 89 22 91 Nasal Cannula 4 10/25/17 16:45 147/85 (105) Simple Mask 6 10/25/17 16:30 92 19 155/88 (110) 92 Simple Mask 6 10/25/17 16:15 91 19 94 Simple Mask 6 10/25/17 16:00 91 19 162/91 (114) 94 Non-Rebreather 15 10/25/17 16:00 93 Non-Rebreather 100 10/25/17 15:45 92 19 159/88 (111) 92 Non-Rebreather 15 10/25/17 15:30 98 19 152/86 (108) 90 Non-Rebreather 15 10/25/17 15:15 93 21 147/86 (106) 91 Non-Rebreather 15 10/25/17 15:10 100 21 160/87 (111) 86 Non-Rebreather 15 10/25/17 15:00 95 22 160/87 (111) 85 Simple Mask 6 10/25/17 14:45 100 21 168/96 (120) 91 Simple Mask 6 10/25/17 14:30 90 23 183/95 (124) 87 Aerosol Mask 8 10/25/17 14:20 98.3 99 23 167/95 (119) 88 Nasal Cannula 4 10/25/17 12:15 98.0 79 16 152/83 (106) 95 Nasal Cannula 3 10/25/17 11:45 78 16 159/87 (111) 95 Nasal Cannula 3 10/25/17 11:15 72 16 153/95 (114) 95 Nasal Cannula 3 10/25/17 10:45 71 15 161/99 (119) 94 Nasal Cannula 3 10/25/17 10:30 71 15 167/92 (117) 95 Nasal Cannula 3 10/25/17 10:15 71 15 166/98 (120) 95 Nasal Cannula 3 10/25/17 10:00 85 15 167/91 (116) 95 Nasal Cannula 3 10/25/17 09:50 95 Nasal Cannula 2.00 10/25/17 09:45 97.9 97 15 189/95 (126) 90 Nasal Cannula 3 I/O 10/25/17 10/25/17 10/25/17 10/26/17 10/26/17 10/26/17 07:00 15:00 23:00 07:00 15:00 23:00 Intake Total 1150 ml 500 ml 950 ml Output Total 1405 ml 1625 ml 1100 ml Balance -255 ml -1625 ml -600 ml 950 ml Intake Oral 500 ml IV Total 950 ml Other 1150 ml Output Urine Total 1400 ml 1400 ml 850 ml Drainage Total 225 ml 250 ml Estimated Blood Loss 5 ml # Voids 3 Result Diagram: 10/26/17 0417 10/26/17 0417 Imaging Last Impressions Chest X-Ray 10/25/17 0000 Signed Impressions: Service Date/Time: Wednesday, October 25, 2017 15:44 - CONCLUSION: Worsening basilar pleural-parenchymal opacities. Tejas Brown MD Bile Duct Drainage 10/25/17 0000 Signed Impressions: Service Date/Time: Wednesday, October 25, 2017 13:32 - CONCLUSION: Uncomplicated biliary stent placement as above. Tejas Brown MD Cholangiogram 10/24/17 0000 Signed Impressions: Service Date/Time: September 12:48 - CONCLUSION: Distal common bile duct stones versus debris with very low contrast progressing into the duodenum. Yuriy Vásquez MD Cholangiopancreatography MRI 10/20/17 0000 Signed Impressions: Service Date/Time: Friday, October 20, 2017 15:38 - CONCLUSION: 1. Severe peripancreatic inflammatory change indicating acute pancreatitis. 2. Numerous gallstones in the gallbladder. 3. Common duct diameter is mildly prominent proximally measuring 8 mm. No abnormal filling defect. Chin Griffin MD Abdomen/Pelvis CT 10/20/17 0000 Signed Impressions: Service Date/Time: Friday, October 20, 2017 06:15 - CONCLUSION: Prominent changes of pancreatitis. Gallstones. Tejas Brown MD Gall Bladder Ultrasound 10/19/17 0000 Signed Impressions: Service Date/Time: Friday, October 20, 2017 00:06 - CONCLUSION: Gallbladder adenomyomatosis Dilated common bile duct without clear etiology. Tejas Brown MD Objective Remarks GENERAL: laying in bed, calm CARDIOVASCULAR: Regular rate and rhythm without murmurs RESPIRATORY: Clear to auscultation. Breath sounds equal bilaterally. No wheezes GASTROINTESTINAL: Abdomen soft, tender to palpation, somewhat distended. no guarding. biliary drain in place. MUSCULOSKELETAL: moves lower extremities. NEURO: Alert & Oriented A/P Assessment and Plan 1. Pt presented w Acute pancreatitis currently NPO IV fluid hydration Patient with transaminitis and elevated common bile duct on ultrasound s/p Laparoscopic cholecystectomy with intraoperative cholangiography 09/24 Intraoperative cholangiography demonstrated distal common bile duct obstruction , question stone versus edema.. GI consulted and she is s/p ERCP due to filling defect on intraoperative cholangiogram. Failed free cannulation. s/p PTC by IR ( now has internal and external biliary stent placement). Pt's respiratory status had worsened post op and required transfer to ICU for close monitoring overnight. s/p 40mg IV lasix which is has responded too. Now on Nasal canula at 6L. Will continue to wean. on vanco and zosyn IV Dilaudid for pain. 2. Hypertension/tachycardia Patient without history of hypertension May be secondary to pain or anxiety/pain. on vasotec prn. Will give one time dose of hydralazine IV 10mg now and add 10mg po hydralazine prn BP>160/90. s/p dose of labetalol in PACU. add amlodipine 5mg po daily and titrate as needed. Monitor 3. Hypokalemia resolved. Discharge Planning transfer to regular floor later today if pt tolerating NC and continues to weans off oxygen. Leelee Goins MD Oct 26, 2017 08:46
[2017-10-26] MEDS ORDERED: hydrALAZINE HCL 20 MG/ML VIAL IV PUSH ONE (09:00)
[2017-10-26] MEDS: SODIUM CHLORIDE 0.9% FLUSH 10 ML FLUSH IV FLUSH SCH ×2 (09:00→21:00)
[2017-10-26] MEDS: amLODIPine BESYLATE 5 MG TAB PO SCH (09:11)
--- NOTE | 2017-10-26 14:18 | HHI.PR ---
Subjective Subjective Notes Moved to [facility] last night due to low sats, on Non rebreather. Now on 4 liters NC, sat in low 90s. C/O pain, tolerating clears. Perc drain, internal/external placed in radiology yesterday, draining clear bile today. Boyfriend at bedside. Objective Vitals/I&O Vital Signs Date Time Temp Pulse Resp B/P (MAP) Pulse Ox O2 Delivery O2 Flow Rate FiO2 10/26/17 12:54 22 10/26/17 12:00 98.0 125 138/64 (88) 91 10/26/17 09:35 Nasal Cannula 4.00 10/25/17 18:00 50 Labs Laboratory Tests Test 10/25/17 16:00 10/25/17 20:18 10/26/17 04:17 Blood Gas Puncture Site RT RADIAL Blood Gas Patient Temperature 98.6 Blood Gas HCO3 29 Blood Gas Base Excess 5.8 Blood Gas Oxygen Saturation 93 Arterial Blood pH 7.49 Arterial Blood Partial Pressure CO2 39 Arterial Blood Partial Pressure O2 70 Arterial Blood Oxygen Content 16.0 Arterial Blood Carboxyhemoglobin 1.1 Arterial Blood Methemoglobin 1.1 Blood Gas Hemoglobin 12.3 Oxygen Delivery Device NRB Blood Gas Inspired Oxygen 100 Potassium Level 3.4 3.7 White Blood Count 12.7 Red Blood Count 4.05 Hemoglobin 11.9 Hematocrit 35.1 Mean Corpuscular Volume 86.6 Mean Corpuscular Hemoglobin 29.4 Mean Corpuscular Hemoglobin Concent 33.9 Red Cell Distribution Width 14.2 Platelet Count 233 Mean Platelet Volume 8.7 Neutrophils (%) (Auto) 86.3 Lymphocytes (%) (Auto) 5.0 Monocytes (%) (Auto) 8.4 Eosinophils (%) (Auto) 0.0 Basophils (%) (Auto) 0.3 Neutrophils # (Auto) 11.0 Lymphocytes # (Auto) 0.6 Monocytes # (Auto) 1.1 Eosinophils # (Auto) 0.0 Basophils # (Auto) 0.0 CBC Comment AUTO DIFF Differential Total Cells Counted 100 Neutrophils % (Manual) 78 Band Neutrophils % 9 Lymphocytes % 4 Monocytes % 8 Neutrophils # (Manual) 11.2 Promyelocytes 1 Differential Comment FINAL DIFF MANUAL Toxic Granulation 1+ Platelet Estimate NORMAL Platelet Morphology Comment CLUMPED Blood Urea Nitrogen 13 Creatinine 0.90 Random Glucose 159 Total Protein 6.5 Albumin 2.0 Calcium Level 8.0 Alkaline Phosphatase 210 Aspartate Amino Transf (AST/SGOT) 115 Alanine Aminotransferase (ALT/SGPT) 69 Total Bilirubin 0.7 Sodium Level 142 Chloride Level 104 Carbon Dioxide Level 31.1 Anion Gap 7 Estimat Glomerular Filtration Rate 65 Date/Time Source Procedure Growth Status 10/22/17 05:01 Blood Peripheral Aerobic Blood Culture - Preliminary NO GROWTH IN 4 DAYS Resulted 10/22/17 05:01 Blood Peripheral Anaerobic Blood Culture - Preliminary NO GROWTH IN 4 DAYS Resulted 10/22/17 08:38 Urine Clean Catch Urine Culture - Final NO GROWTH IN 48 HOURS. Complete Cardiovascular: Other (sinus tachycardia with KEMAL.) Lungs: Clear, Other (anteriorly) Abdomen: Other (mildly distended, lap romaine incisions healing well. RUQ drain dressing in place. No erythema, no rebound tenderness.) Extremities: SCD's on, Other (mild edema.) A/P Assessment and Plan Gallstone pancreatitis, s/p lap romaine with IOC demonstrating distal CBD obstruction. ERCP unable to cannulate CBD. IR perc drain with internal/ external drain placed. Pt now being supported through systemic affects of pancreatitis, B pleural effusions, with consolidation, mild peripheral edema. Anxiety, fear. I explained everything I could about what is going on to the patient and her boyfriend. I rakesh a diagram of pertinent anatomy on her white board. i answered their questions to the best of my ability. Plan- continued support. I added protonix and ativan after discussion with them. Garo Medrano MD Oct 26, 2017 14:18
[2017-10-27] VITALS (11 sets, daily range): BP systolic 103–164; BP diastolic 61–92; PULSE 86–100; RESP 15–19; TEMP 96.7–99.8; O2SAT 92–97
[2017-10-27] MEDS: ACETAMINOPHEN 1000 MG/100 ML 100 ML IV SCH ×4 (02:15→20:31)
[2017-10-27] MEDS: HYDROmorphone HCL PF 2 MG/ML VIAL IV PUSH PRN (02:16)
[2017-10-27] MEDS: RESP: ALBUTEROL 2.5 MG/IPRATROPIUM 0.5 MG NEB (PRN) NEB ×2 (04:31→21:04)
[2017-10-27] MEDS: PIPERACIL-TAZO 4.5 GM PREMIX 100 ML IV SCH ×3 (05:30→18:00)
[2017-10-27 06:18] LABS: AUTOMATED NEUTROPHIL # 12.2 TH/MM3 (1.8-7.7); BASOPHIL % 0.2 % (0.0-2.0); EOSINOPHIL % 0.1 % (0.0-4.0); HEMATOCRIT 33.2 % (35.0-46.0); HEMOGLOBIN 10.9 GM/DL (11.6-15.3); LYMPH % 7.7 % (9.0-44.0); LYMPHOCYTE # 1.1 TH/MM3 (1.0-4.8); MEAN CELL VOLUME 87.9 FL (80.0-100.0); MEAN PLATELET VOLUME 7.8 FL (7.0-11.0); MONO % 6.9 % (0.0-8.0); NEUT % 85.1 % (16.0-70.0); PLATELET COUNT 281 TH/MM3 (150-450); RED BLOOD COUNT 3.78 MIL/MM3 (4.00-5.30); RED CELL DISTRIBUTION WIDTH 14.7 % (11.6-17.2); WHITE BLOOD COUNT 14.4 TH/MM3 (4.0-11.0)
[2017-10-27 06:43] LABS: ALBUMIN 1.7 GM/DL (3.4-5.0); AST (GOT) 92 U/L (15-37); BICARBONATE 28.6 MEQ/L (21.0-32.0); BLOOD UREA NITROGEN 12 MG/DL (7-18); CALCIUM 7.8 MG/DL (8.5-10.1); CHLORIDE 106 MEQ/L (98-107); CREATININE 1.01 MG/DL (0.50-1.00); GLOMERULAR FILTRATION RATE 56 ML/MIN (>89); GLUCOSE,RANDOM 138 MG/DL (74-106); SODIUM (NA) 142 MEQ/L (136-145)
[2017-10-27 06:47] LABS: ALKALINE PHOSPHATASE 151 U/L (45-117); ALT (GPT) 69 U/L (10-53); TOTAL BILIRUBIN ADULT 0.6 MG/DL (0.2-1.0); TOTAL PROTEIN 5.7 GM/DL (6.4-8.2)
[2017-10-27] MEDS: SODIUM CHLORIDE 0.9% FLUSH 10 ML FLUSH IV FLUSH SCH ×2 (08:51→21:00)
[2017-10-27] MEDS: POLYETHYLENE GLYCOL 17 GM PKG PO SCH (08:51)
[2017-10-27] MEDS: DOCUSATE SODIUM 50 MG/SENNA 8.6 MG TAB PO SCH ×2 (08:51→19:47)
[2017-10-27] MEDS: PANTOPRAZOLE SOD 40 MG DELAYED RELEASE TAB PO SCH (08:51)
[2017-10-27] MEDS: amLODIPine BESYLATE 5 MG TAB PO SCH (08:51)
[2017-10-27 08:57] LABS: BANDS 17 % (0-6); LYMPHOCYTES 8 % (9-44); METAMYELOCYTES 3 % (0-1); MONOCYTES 7 % (0-8); NEUTROPHIL # MANUAL DIFF 12.2 TH/MM3 (1.8-7.7); POLYS (SEG NEUTROPHILS) 65 % (16-70)
[2017-10-27 08:59] LABS: TOXIC VACUOLATION PRESENT (NONE SEEN)
[2017-10-27 09:00] LABS: TOXIC GRANULATION 1+ (NORMAL)
--- NOTE | 2017-10-27 09:03 | HHI.PR ---
Subjective Remarks Pt feeling better, denies any CP, states her SOB is improved. Makes herself cough. Has been using IS as instructed. Pt states that she would like to speak w GI and IR regarding her procedures. Has been tolerating clears and also pt has been passing flatus. No BM yet Objective Vitals Vital Signs Date Time Temp Pulse Resp B/P (MAP) Pulse Ox O2 Delivery O2 Flow Rate FiO2 10/27/17 06:00 99 10/27/17 06:00 95 Nasal Cannula 4.00 Non-Rebreather 10/27/17 04:00 98.6 86 16 123/69 (87) 95 10/27/17 04:00 86 10/27/17 02:00 87 10/27/17 00:00 98.9 94 17 103/61 (75) 95 10/27/17 00:00 94 10/26/17 22:00 97 10/26/17 20:00 116 10/26/17 20:00 95 Nasal Cannula 4.00 Non-Rebreather 10/26/17 20:00 101.6 116 18 146/83 (104) 94 10/26/17 19:55 96 Nasal Cannula 4.00 10/26/17 18:00 122 10/26/17 16:00 123 10/26/17 16:00 99.9 120 23 149/86 (107) 92 10/26/17 14:00 120 10/26/17 12:54 22 10/26/17 12:00 98.0 125 30 138/64 (88) 91 10/26/17 12:00 128 10/26/17 10:00 111 10/26/17 09:35 93 Nasal Cannula 4.00 I/O 10/26/17 10/26/17 10/26/17 10/27/17 10/27/17 10/27/17 07:00 15:00 23:00 07:00 15:00 23:00 Intake Total 500 ml 1300 ml 1150 ml 1735 ml Output Total 1100 ml 1480 ml 1800 ml Balance -600 ml 1300 ml -330 ml -65 ml Intake Oral 500 ml 950 ml 360 ml IV Total 1300 ml 200 ml 1375 ml Output Urine Total 850 ml 1400 ml 1650 ml Drainage Total 250 ml 80 ml 150 ml Result Diagram: 10/27/17 0541 10/27/1741 Imaging Last Impressions Chest X-Ray 10/25/17 0000 Signed Impressions: Service Date/Time: Wednesday, October 25, 2017 15:44 - CONCLUSION: Worsening basilar pleural-parenchymal opacities. Tejas Brown MD Bile Duct Drainage 10/25/17 0000 Signed Impressions: Service Date/Time: Wednesday, October 25, 2017 13:32 - CONCLUSION: Uncomplicated biliary stent placement as above. Tejas Brown MD Cholangiogram 10/24/17 0000 Signed Impressions: Service Date/Time: September 12:48 - CONCLUSION: Distal common bile duct stones versus debris with very low contrast progressing into the duodenum. Yuriy Vásquez MD Cholangiopancreatography MRI 10/20/17 0000 Signed Impressions: Service Date/Time: Friday, October 20, 2017 15:38 - CONCLUSION: 1. Severe peripancreatic inflammatory change indicating acute pancreatitis. 2. Numerous gallstones in the gallbladder. 3. Common duct diameter is mildly prominent proximally measuring 8 mm. No abnormal filling defect. Chin Griffin MD Abdomen/Pelvis CT 10/20/17 0000 Signed Impressions: Service Date/Time: Friday, October 20, 2017 06:15 - CONCLUSION: Prominent changes of pancreatitis. Gallstones. Tejas Brown MD Gall Bladder Ultrasound 10/19/17 0000 Signed Impressions: Service Date/Time: Friday, October 20, 2017 00:06 - CONCLUSION: Gallbladder adenomyomatosis Dilated common bile duct without clear etiology. Tejas Brown MD Objective Remarks GENERAL: laying in bed, calm CARDIOVASCULAR: Regular rate and rhythm without murmurs RESPIRATORY: decreased breath sounds but no wheezing. GASTROINTESTINAL: Abdomen soft, tender to palpation, no guarding. biliary drain in place. MUSCULOSKELETAL: moves lower extremities. NEURO: Alert & Oriented A/P Assessment and Plan 1. Pt presented w Acute pancreatitis IV fluid hydration Patient with transaminitis and elevated common bile duct on ultrasound s/p Laparoscopic cholecystectomy with intraoperative cholangiography 09/24 Intraoperative cholangiography demonstrated distal common bile duct obstruction , question stone versus edema.. GI following and she is s/p ERCP due to filling defect on intraoperative cholangiogram. Failed free cannulation. s/p PTC by IR ( now has internal and external biliary stent placement). Pt's respiratory status had worsened post op and required transfer to ICU for close monitoring. s/p 40mg IV lasix . Now on Nasal canula at 4L and improving. Will continue to wean. on vanco and zosyn IV. Pt did have a Tmax of 101.6. Could be post op fever however will be cautious and repeat blood cx. Pt also has some leukocytosis at 14.4. Will continue to monitor closely. If pt continues to spike fevers, will consult ID. Will check chest x-ray Dilaudid for pain. 2. Hypertension/tachycardia Patient without history of hypertension May be secondary to pain or anxiety/pain. on vasotec prn. Will give one time dose of hydralazine IV 10mg now and add 10mg po hydralazine prn BP>160/90. s/p dose of labetalol in PACU. on amlodipine 5mg po daily and titrate as needed. Monitor 3. Hypokalemia K 3.1, will replace Discharge Planning transfer to regular floor later today I have placed a call to IR regarding plan for biliary stent. Pt requesting to speak w both IR and Leelee Galo MD Oct 27, 2017 09:03
[2017-10-27] MEDS ORDERED: POTASSIUM CHLORIDE 20 MEQ CONTROLLED RELEASE TAB PO ONE (09:15)
--- NOTE | 2017-10-27 09:47 | RADRPT ---
EXAM DATE/TIME: 10/27/2017 09:10 [place] COMPARISON: CHEST SINGLE AP, October 25, 2017, 15:44. INDICATIONS : Shortness of breath for one week. MEDICAL HISTORY : None. SURGICAL HISTORY : None. ENCOUNTER: Subsequent ACUITY: 1 week PAIN SCORE: 0/10 LOCATION: Bilateral chest FINDINGS: The heart size is normal. There is hazy density identified in the bases bilaterally with silhouetting of the hemidiaphragms. The upper lungs are clear. When compared to the prior exam, no significant ch anges occurred. There appears to be a drainage tube at the right upper quadrant of the abdomen. CONCLUSION: Suspected bilateral pleural effusions with some accompanying atelectasis or consolidation at the base dio Hopkins MD on October 27, 2017 at 9:44 Board Certified Radiologist. This report was verified electronically.
[2017-10-27] MEDS ORDERED: PHARMACY ORDERED LAB ONE (10:00)
--- NOTE | 2017-10-27 11:07 | HHI.PR ---
Subjective Subjective Notes feels better today, wants some food. Objective Vitals/I&O Vital Signs Date Time Temp Pulse Resp B/P (MAP) Pulse Ox O2 Delivery O2 Flow Rate FiO2 10/27/17 09:08 97 Nasal Cannula 4.00 10/27/17 06:00 99 10/27/17 04:00 98.6 16 123/69 (87) 10/25/17 18:00 50 Labs Laboratory Tests Test 10/27/17 05:41 White Blood Count 14.4 Red Blood Count 3.78 Hemoglobin 10.9 Hematocrit 33.2 Mean Corpuscular Volume 87.9 Mean Corpuscular Hemoglobin 29.0 Mean Corpuscular Hemoglobin Concent 33.0 Red Cell Distribution Width 14.7 Platelet Count 281 Mean Platelet Volume 7.8 Neutrophils (%) (Auto) 85.1 Lymphocytes (%) (Auto) 7.7 Monocytes (%) (Auto) 6.9 Eosinophils (%) (Auto) 0.1 Basophils (%) (Auto) 0.2 Neutrophils # (Auto) 12.2 Lymphocytes # (Auto) 1.1 Monocytes # (Auto) 1.0 Eosinophils # (Auto) 0.0 Basophils # (Auto) 0.0 CBC Comment AUTO DIFF Differential Total Cells Counted 100 Neutrophils % (Manual) 65 Band Neutrophils % 17 Lymphocytes % 8 Monocytes % 7 Neutrophils # (Manual) 12.2 Metamyelocytes 3 Differential Comment FINAL DIFF MANUAL Toxic Granulation 1+ Toxic Vacuolation PRESENT Platelet Estimate NORMAL Platelet Morphology Comment NORMAL Blood Urea Nitrogen 12 Creatinine 1.01 Random Glucose 138 Total Protein 5.7 Albumin 1.7 Calcium Level 7.8 Alkaline Phosphatase 151 Aspartate Amino Transf (AST/SGOT) 92 Alanine Aminotransferase (ALT/SGPT) 69 Total Bilirubin 0.6 Sodium Level 142 Potassium Level 3.1 Chloride Level 106 Carbon Dioxide Level 28.6 Anion Gap 7 Estimat Glomerular Filtration Rate 56 Date/Time Source Procedure Growth Status 10/22/17 05:01 Blood Peripheral Aerobic Blood Culture - Final NO GROWTH IN 5 DAYS Complete 10/22/17 05:01 Blood Peripheral Anaerobic Blood Culture - Final NO GROWTH IN 5 DAYS Complete 10/22/17 08:38 Urine Clean Catch Urine Culture - Final NO GROWTH IN 48 HOURS. Complete Cardiovascular: Regular Lungs: Clear Abdomen: Post-op tenderness, BS normal Narrative Exam internal/external drain intact with bile Wound Wound : Wound Location: Abdomen Appearance: Clean & Dry A/P Assessment and Plan s/p lap romaine. gallstone pancreatitis, cbd stone clinically improving ok to transfer back to floor and advance diet drain/stent per IR and GI Aramis Perez MD Oct 27, 2017 11:07
[2017-10-27] MEDS: LORazepam 1 MG TAB PO PRN ×2 (12:00→18:33)
--- NOTE | 2017-10-27 13:12 | HHI.GIFU ---
Subjective Remarks Awake resting in the bed Attempting to eat some solid food appetite improving mildly Soreness generalized abdomen status post laparoscopic cholecystectomy Afebrile this a.m., fever noted yesterday No nausea no vomiting, daily bowel regimen for now (Apple Francisco) Objective Vitals I&O Vital Signs Date Time Temp Pulse Resp B/P (MAP) Pulse Ox O2 Delivery O2 Flow Rate FiO2 10/27/17 11:20 94 Nasal Cannula 2.00 Non-Rebreather 10/27/17 09:08 97 Nasal Cannula 4.00 10/27/17 09:00 95 Nasal Cannula 3.00 Non-Rebreather 10/27/17 07:00 96 Nasal Cannula 4.00 Non-Rebreather 10/27/17 06:00 99 10/27/17 06:00 95 Nasal Cannula 4.00 Non-Rebreather 10/27/17 04:00 98.6 86 16 123/69 (87) 95 10/27/17 04:00 86 10/27/17 02:00 87 10/27/17 00:00 98.9 94 17 103/61 (75) 95 10/27/17 00:00 94 10/26/17 22:00 97 10/26/17 20:00 116 10/26/17 20:00 95 Nasal Cannula 4.00 Non-Rebreather 10/26/17 20:00 101.6 116 18 146/83 (104) 94 10/26/17 19:55 96 Nasal Cannula 4.00 10/26/17 18:00 122 10/26/17 16:00 123 10/26/17 16:00 99.9 120 23 149/86 (107) 92 10/26/17 14:00 120 I/O 10/26/17 10/26/17 10/26/17 10/27/17 10/27/17 10/27/17 07:00 15:00 23:00 07:00 15:00 23:00 Intake Total 500 ml 1300 ml 1150 ml 1975 ml 380 ml Output Total 1100 ml 1480 ml 1800 ml 1550 ml Balance -600 ml 1300 ml -330 ml 175 ml -1170 ml Intake Oral 500 ml 950 ml 600 ml 380 ml IV Total 1300 ml 200 ml 1375 ml Output Urine Total 850 ml 1400 ml 1650 ml 1550 ml Drainage Total 250 ml 80 ml 150 ml # Bowel Movements 1 Laboratory Laboratory Tests Test 10/27/17 05:41 10/27/17 11:30 White Blood Count 14.4 Red Blood Count 3.78 Hemoglobin 10.9 Hematocrit 33.2 Mean Corpuscular Volume 87.9 Mean Corpuscular Hemoglobin 29.0 Mean Corpuscular Hemoglobin Concent 33.0 Red Cell Distribution Width 14.7 Platelet Count 281 Mean Platelet Volume 7.8 Neutrophils (%) (Auto) 85.1 Lymphocytes (%) (Auto) 7.7 Monocytes (%) (Auto) 6.9 Eosinophils (%) (Auto) 0.1 Basophils (%) (Auto) 0.2 Neutrophils # (Auto) 12.2 Lymphocytes # (Auto) 1.1 Monocytes # (Auto) 1.0 Eosinophils # (Auto) 0.0 Basophils # (Auto) 0.0 CBC Comment AUTO DIFF Differential Total Cells Counted 100 Neutrophils % (Manual) 65 Band Neutrophils % 17 Lymphocytes % 8 Monocytes % 7 Neutrophils # (Manual) 12.2 Metamyelocytes 3 Differential Comment FINAL DIFF MANUAL Toxic Granulation 1+ Toxic Vacuolation PRESENT Platelet Estimate NORMAL Platelet Morphology Comment NORMAL Blood Urea Nitrogen 12 Creatinine 1.01 Random Glucose 138 Total Protein 5.7 Albumin 1.7 Calcium Level 7.8 Alkaline Phosphatase 151 Aspartate Amino Transf (AST/SGOT) 92 Alanine Aminotransferase (ALT/SGPT) 69 Total Bilirubin 0.6 Sodium Level 142 Potassium Level 3.1 Chloride Level 106 Carbon Dioxide Level 28.6 Anion Gap 7 Estimat Glomerular Filtration Rate 56 Vancomycin Level Trough 12.4 Date/Time Source Procedure Growth Status 10/27/17 12:08 Blood Peripheral Aerobic Blood Culture Pending Received 10/27/17 12:08 Blood Peripheral Anaerobic Blood Culture Pending Received 10/22/17 08:38 Urine Clean Catch Urine Culture - Final NO GROWTH IN 48 HOURS. Complete Imaging Last Impressions Chest X-Ray 10/27/17 0000 Signed Impressions: Service Date/Time: Friday, October 27, 2017 09:10 - CONCLUSION: Suspected bilateral pleural effusions with some accompanying atelectasis or consolidation at the bases. Tejas Hopkins MD Bile Duct Drainage 10/25/17 0000 Signed Impressions: Service Date/Time: Wednesday, October 25, 2017 13:32 - CONCLUSION: Uncomplicated biliary stent placement as above. Tejas Brown MD Cholangiogram 10/24/17 0000 Signed Impressions: Service Date/Time: September 12:48 - CONCLUSION: Distal common bile duct stones versus debris with very low contrast progressing into the duodenum. Yuriy Vásquez MD Cholangiopancreatography MRI 10/20/17 0000 Signed Impressions: Service Date/Time: Friday, October 20, 2017 15:38 - CONCLUSION: 1. Severe peripancreatic inflammatory change indicating acute pancreatitis. 2. Numerous gallstones in the gallbladder. 3. Common duct diameter is mildly prominent proximally measuring 8 mm. No abnormal filling defect. Chin Griffin MD Abdomen/Pelvis CT 10/20/17 0000 Signed Impressions: Service Date/Time: Friday, October 20, 2017 06:15 - CONCLUSION: Prominent changes of pancreatitis. Gallstones. Tejas Brown MD Gall Bladder Ultrasound 10/19/17 0000 Signed Impressions: Service Date/Time: Friday, October 20, 2017 00:06 - CONCLUSION: Gallbladder adenomyomatosis Dilated common bile duct without clear etiology. Tejas Brown MD Physical Exam HEENT: Normocephalic; atraumatic CHEST: short , low volumes CARDIAC: RRR ABDOMEN: Round, taut, bowel sounds minimal very soft, mild tenderness especially at surgical sites EXTREMITIES: No clubbing, cyanosis, or edema. SKIN: Normal; no rash; no jaundice. Obese ROLL HAND: No focal deficits; alert and oriented times three. (Apple Francisco) Assessment and Plan Plan ASSESSMENT - Pancreatitis most likely secondary to CBD stones. MRCP (10/20) --> Severe peripancreatic inflammatory change indicating acute pancreatitis. Numerous gallstones in gallbladder. Common duct diameter is mildly prominent proximally measuring 8 mm. No abnormal filling defect. S/P cholecystectomy. Cholangiogram (10/24) --> Distal common bile duct stones versus debris with very low contrast progressing into the duodenum. LFTs and lipase improving. , 12-29 attempt ERCP, stent placed per IR - Leukocytosis - 14.4 Afebrile today. WBC 10.9, anemia stable Vancomycin. Zosyn. Patient status post laparoscopic cholecystectomy LFTs decreasing 92/69, bilirubin now normal PLAN , Diet as tolerated, heart healthy Encouraged to increase activity and dangle on side of the bed, respirations are short choppy low volumes - MiraLAX daily - Monitor labs, recheck CMP in the morning - Continue antibiotics - GS following- S/P cholecystectomy done today - Monitor labs - Supportive care - Further recommendations to follow This patient has been seen by myself and Dr. Partida, note is written on his behalf (Apple Francisco) Physician Comments Agree with above, will follow up with you. (Prudence Partida MD) Apple Francisco Oct 27, 2017 13:12 Prudence Partida MD Oct 27, 2017 17:53
[2017-10-27] MEDS: DEXT 5%-NACL 0.45% 1000 ML INJ 1,000 ML IV SCH ×2 (14:11→21:54)
[2017-10-27] MEDS: VANCOMYCIN INJ 1,250 MG in SODIUM CHLOR 0.9% 250 ML INJ 250 ML IV SCH (18:26)
[2017-10-27] MEDS: ONDANSETRON HCL 4 MG/2 ML VIAL IVP PRN (20:32)
[2017-10-27] MEDS: ENALAPRILAT 1.25 MG/ML VIAL IV PUSH PRN (20:39)
[2017-10-28] VITALS (8 sets, daily range): BP systolic 140–168; BP diastolic 78–98; PULSE 92–104; RESP 18–20; TEMP 97.8–102.2; O2SAT 91–96
[2017-10-28] MEDS: PIPERACIL-TAZO 4.5 GM PREMIX 100 ML IV SCH ×4 (00:12→16:16)
[2017-10-28] MEDS: ONDANSETRON HCL 4 MG/2 ML VIAL IVP PRN ×2 (02:23→13:12)
[2017-10-28] MEDS: ACETAMINOPHEN 1000 MG/100 ML 100 ML IV SCH ×4 (02:24→19:37)
[2017-10-28] MEDS: HYDROmorphone HCL PF 2 MG/ML VIAL IV PUSH PRN ×2 (02:24→18:53)
[2017-10-28] MEDS: VANCOMYCIN INJ 1,250 MG in SODIUM CHLOR 0.9% 250 ML INJ 250 ML IV SCH ×2 (03:50→16:16)
[2017-10-28] MEDS: LORazepam 1 MG TAB PO PRN ×3 (05:14→19:49)
[2017-10-28] MEDS: RESP: ALBUTEROL 2.5 MG/IPRATROPIUM 0.5 MG NEB (PRN) NEB ×2 (05:31→12:49)
[2017-10-28] MEDS: DOCUSATE SODIUM 50 MG/SENNA 8.6 MG TAB PO SCH ×2 (08:20→19:38)
[2017-10-28] MEDS: PANTOPRAZOLE SOD 40 MG DELAYED RELEASE TAB PO SCH (08:20)
[2017-10-28] MEDS: amLODIPine BESYLATE 5 MG TAB PO SCH (08:20)
[2017-10-28] MEDS: SODIUM CHLORIDE 0.9% FLUSH 10 ML FLUSH IV FLUSH SCH ×2 (08:21→19:39)
[2017-10-28] MEDS: POLYETHYLENE GLYCOL 17 GM PKG PO SCH (08:22)
--- NOTE | 2017-10-28 09:50 | HHI.PR ---
Subjective Remarks Pt tells me pain is controlled. had loose stools all night from taking some many laxatives. no nausea or vomiting, eating breakfast. no nausea or vomiting. Objective Vitals Vital Signs Date Time Temp Pulse Resp B/P (MAP) Pulse Ox O2 Delivery O2 Flow Rate FiO2 10/28/17 08:00 98.5 92 20 155/83 (107) 95 10/28/17 04:17 99.2 95 18 150/98 (115) 93 10/28/17 00:12 99.3 98 18 168/88 (114) 92 10/27/17 21:04 94 Nasal Cannula 2.00 10/27/17 20:31 99.3 90 18 164/92 (116) 92 10/27/17 19:00 Nasal Cannula 2.00 10/27/17 16:00 96.7 100 18 158/92 (114) 92 10/27/17 14:40 16 10/27/17 12:00 99.8 97 15 150/79 (102) 94 10/27/17 12:00 96 10/27/17 11:20 94 Nasal Cannula 2.00 Non-Rebreather 10/27/17 10:00 97 I/O 10/27/17 10/27/17 10/27/17 10/28/17 10/28/17 10/28/17 07:00 15:00 23:00 07:00 15:00 23:00 Intake Total 1975 ml 1193 ml 460 ml 930 ml 120 ml Output Total 1800 ml 1690 ml 4 ml 125 ml Balance 175 ml -497 ml 456 ml 805 ml 120 ml Intake Oral 600 ml 380 ml 360 ml 380 ml 120 ml IV Total 1375 ml 813 ml 100 ml 550 ml Output Urine Total 1650 ml 1550 ml Stool Total 4 ml Drainage Total 150 ml 140 ml 125 ml # Voids 1 4 # Bowel Movements 1 3 Result Diagram: 10/27/17 0541 10/27/17 0541 Imaging Last Impressions Chest X-Ray 10/27/17 0000 Signed Impressions: Service Date/Time: Friday, October 27, 2017 09:10 - CONCLUSION: Suspected bilateral pleural effusions with some accompanying atelectasis or consolidation at the bases. Tejas Hopkins MD Bile Duct Drainage 10/25/17 0000 Signed Impressions: Service Date/Time: Wednesday, October 25, 2017 13:32 - CONCLUSION: Uncomplicated biliary stent placement as above. Tejas Brown MD Cholangiogram 10/24/17 0000 Signed Impressions: Service Date/Time: September 12:48 - CONCLUSION: Distal common bile duct stones versus debris with very low contrast progressing into the duodenum. Yuriy Vásquez MD Cholangiopancreatography MRI 10/20/17 0000 Signed Impressions: Service Date/Time: Friday, October 20, 2017 15:38 - CONCLUSION: 1. Severe peripancreatic inflammatory change indicating acute pancreatitis. 2. Numerous gallstones in the gallbladder. 3. Common duct diameter is mildly prominent proximally measuring 8 mm. No abnormal filling defect. Chin Griffin MD Abdomen/Pelvis CT 10/20/17 0000 Signed Impressions: Service Date/Time: Friday, October 20, 2017 06:15 - CONCLUSION: Prominent changes of pancreatitis. Gallstones. Tejas Brown MD Gall Bladder Ultrasound 10/19/17 0000 Signed Impressions: Service Date/Time: Friday, October 20, 2017 00:06 - CONCLUSION: Gallbladder adenomyomatosis Dilated common bile duct without clear etiology. Tejas Brown MD Objective Remarks GENERAL: laying in bed, calm CARDIOVASCULAR: Regular rate and rhythm without murmurs RESPIRATORY: decreased breath sounds but no wheezing. GASTROINTESTINAL: Abdomen soft, appropriately tender to palpation, no guarding. biliary drain in place. MUSCULOSKELETAL: moves lower extremities. NEURO: Alert & Oriented A/P Assessment and Plan 1. Pt presented w Acute pancreatitis IV fluid hydration Patient with transaminitis and elevated common bile duct on ultrasound s/p Laparoscopic cholecystectomy with intraoperative cholangiography 09/24 Intraoperative cholangiography demonstrated distal common bile duct obstruction , question stone versus edema. GI following and she is s/p ERCP due to filling defect on intraoperative cholangiogram. Failed free cannulation. s/p PTC by IR ( now has internal and external biliary stent placement). Pt's respiratory status had worsened post op and required transfer to ICU for close monitoring. s/p 40mg IV lasix . Now on Nasal canula at 2L and improving. Will continue to wean. on vanco and zosyn IV. Pt did have a Tmax of 101.6. Could be post op fever however will be cautious and repeat blood cx which are currently pending. Pt also has some leukocytosis at 14.4 yesterday and no new labs available today yet. Will continue to monitor closely. If pt continues to spike fevers, will consult ID. chest x-ray concerning for atelectasis vs bibasilar consolidations. continue abx. encourage IS use q1hr while awake and ambulation. Pain control per sx. 2. Hypertension/tachycardia Patient without history of hypertension May be secondary to pain or anxiety/pain. on vasotec prn. s/p hydralazine IV 10mg x1 and 10mg po hydralazine prn BP>160/90. s/p dose of labetalol in PACU. on amlodipine 5mg po daily and titrate as needed. Monitor 3. Hypokalemia K 3.1, was replaced yesterday. new lab pending Discharge Planning GS following. Afebrile today. however if fevers persist or leukocytosis worsens, will consult Leelee Montero MD Oct 28, 2017 09:50
--- NOTE | 2017-10-28 09:56 | HHI.PR ---
Subjective Subjective Notes no acute issues, pain better, diarrhea with stool softners Objective Vitals/I&O Vital Signs Date Time Temp Pulse Resp B/P (MAP) Pulse Ox O2 Delivery O2 Flow Rate FiO2 10/28/17 08:00 98.5 92 20 155/83 (107) 95 10/27/17 21:04 Nasal Cannula 2.00 10/25/17 18:00 50 Labs Laboratory Tests Test 10/27/17 11:30 Vancomycin Level Trough 12.4 Date/Time Source Procedure Growth Status 10/27/17 12:08 Blood Peripheral Aerobic Blood Culture Pending Received 10/27/17 12:08 Blood Peripheral Anaerobic Blood Culture Pending Received 10/22/17 08:38 Urine Clean Catch Urine Culture - Final NO GROWTH IN 48 HOURS. Complete Abdomen: Other (soft incisional tendreness drain +green bile) A/P Assessment and Plan s/p lap romaine. gallstone pancreatitis, cbd stone clinically improving continue diet monitor labs and drain pt needs to ambulate today hold stool softeners dvt ppx Aleksandr Radford MD Oct 28, 2017 09:56
[2017-10-28 10:13] LABS: AUTOMATED NEUTROPHIL # 15.9 TH/MM3 (1.8-7.7); BASOPHIL % 0.2 % (0.0-2.0); EOSINOPHIL # 0.1 TH/MM3 (0-0.4); EOSINOPHIL % 0.5 % (0.0-4.0); HEMOGLOBIN 11.2 GM/DL (11.6-15.3); LYMPH % 5.3 % (9.0-44.0); LYMPHOCYTE # 0.9 TH/MM3 (1.0-4.8); MEAN CELL VOLUME 86.4 FL (80.0-100.0); MEAN CORPUSCULAR HEMOGLOBIN 28.4 PG (27.0-34.0); MEAN CORPUSCULAR HGB CONC 32.8 % (32.0-36.0); MEAN PLATELET VOLUME 7.7 FL (7.0-11.0); MONO % 4.9 % (0.0-8.0); MONOCYTE # 0.9 TH/MM3 (0-0.9); NEUT % 89.1 % (16.0-70.0); PLATELET COUNT 285 TH/MM3 (150-450); RED BLOOD COUNT 3.94 MIL/MM3 (4.00-5.30); RED CELL DISTRIBUTION WIDTH 14.2 % (11.6-17.2); WHITE BLOOD COUNT 17.8 TH/MM3 (4.0-11.0)
[2017-10-28 10:45] LABS: ALBUMIN 1.7 GM/DL (3.4-5.0); ALKALINE PHOSPHATASE 144 U/L (45-117); ALT (GPT) 44 U/L (10-53); AST (GOT) 39 U/L (15-37); BICARBONATE 26.3 MEQ/L (21.0-32.0); BLOOD UREA NITROGEN 9 MG/DL (7-18); CALCIUM 8.1 MG/DL (8.5-10.1); CHLORIDE 106 MEQ/L (98-107); CREATININE 0.89 MG/DL (0.50-1.00); GLOMERULAR FILTRATION RATE 65 ML/MIN (>89); GLUCOSE,RANDOM 95 MG/DL (74-106); MAGNESIUM 1.9 MG/DL (1.5-2.5); SODIUM (NA) 141 MEQ/L (136-145); TOTAL BILIRUBIN ADULT 0.8 MG/DL (0.2-1.0); TOTAL PROTEIN 6.2 GM/DL (6.4-8.2)
[2017-10-28 10:54] LABS: BANDS 2 % (0-6); LYMPHOCYTES 5 % (9-44); METAMYELOCYTES 1 % (0-1); MONOCYTES 2 % (0-8); MYELOCYTES 1 % (0-0); NEUTROPHIL # MANUAL DIFF 16.6 TH/MM3 (1.8-7.7); POLYS (SEG NEUTROPHILS) 89 % (16-70)
[2017-10-28] MEDS: DEXT 5%-NACL 0.45% 1000 ML INJ 1,000 ML IV SCH (11:14)
[2017-10-28] MEDS ORDERED: POTASSIUM CHLORIDE 20 MEQ CONTROLLED RELEASE TAB PO ONE (14:30)
[2017-10-29] VITALS (8 sets, daily range): BP systolic 138–189; BP diastolic 83–99; PULSE 78–99; RESP 16–20; TEMP 98.1–100.9; O2SAT 91–95
[2017-10-29] MEDS: PIPERACIL-TAZO 4.5 GM PREMIX 100 ML IV SCH ×5 (00:19→23:22)
[2017-10-29] MEDS: DEXT 5%-NACL 0.45% 1000 ML INJ 1,000 ML IV SCH ×2 (00:34→09:03)
[2017-10-29] MEDS: ACETAMINOPHEN 1000 MG/100 ML 100 ML IV SCH ×2 (02:00→08:37)
[2017-10-29] MEDS: VANCOMYCIN INJ 1,250 MG in SODIUM CHLOR 0.9% 250 ML INJ 250 ML IV SCH (03:23)
[2017-10-29] MEDS: LORazepam 1 MG TAB PO PRN ×3 (06:17→21:35)
[2017-10-29 07:22] LABS: AUTOMATED NEUTROPHIL # 15.4 TH/MM3 (1.8-7.7); BASOPHIL % 0.1 % (0.0-2.0); EOSINOPHIL # 0.1 TH/MM3 (0-0.4); EOSINOPHIL % 0.5 % (0.0-4.0); HEMATOCRIT 31.3 % (35.0-46.0); HEMOGLOBIN 10.5 GM/DL (11.6-15.3); LYMPH % 4.8 % (9.0-44.0); LYMPHOCYTE # 0.8 TH/MM3 (1.0-4.8); MEAN CELL VOLUME 86.2 FL (80.0-100.0); MEAN CORPUSCULAR HGB CONC 33.6 % (32.0-36.0); MONO % 5.2 % (0.0-8.0); MONOCYTE # 0.9 TH/MM3 (0-0.9); NEUT % 89.4 % (16.0-70.0); PLATELET COUNT 311 TH/MM3 (150-450); RED BLOOD COUNT 3.63 MIL/MM3 (4.00-5.30); RED CELL DISTRIBUTION WIDTH 14.1 % (11.6-17.2); WHITE BLOOD COUNT 17.3 TH/MM3 (4.0-11.0)
[2017-10-29 07:47] LABS: BICARBONATE 27.6 MEQ/L (21.0-32.0); CALCIUM 8.1 MG/DL (8.5-10.1); CREATININE 1.07 MG/DL (0.50-1.00)
[2017-10-29] MEDS: SODIUM CHLORIDE 0.9% FLUSH 10 ML FLUSH IV FLUSH SCH ×2 (08:38→21:00)
[2017-10-29] MEDS: POLYETHYLENE GLYCOL 17 GM PKG PO SCH (08:38)
[2017-10-29] MEDS: amLODIPine BESYLATE 5 MG TAB PO SCH (08:38)
[2017-10-29] MEDS: DOCUSATE SODIUM 50 MG/SENNA 8.6 MG TAB PO SCH ×2 (08:39→21:00)
[2017-10-29] MEDS: PANTOPRAZOLE SOD 40 MG DELAYED RELEASE TAB PO SCH (08:39)
[2017-10-29] MEDS ORDERED: ACETAMINOPHEN/HYDROcodone 325 MG/5 MG TAB PO PRN ×2 (10:30)
--- NOTE | 2017-10-29 10:42 | HHI.PR ---
Subjective Subjective Notes Sitting on the side of the bed Feeling better today Walked in hallway yesterday Pain better Asking to speak with Dr. Brown or other IR Physician Objective Vitals/I&O Vital Signs Date Time Temp Pulse Resp B/P (MAP) Pulse Ox O2 Delivery O2 Flow Rate FiO2 10/29/17 09:46 94 Nasal Cannula 1.00 10/29/17 08:00 100.2 87 16 156/95 (115) 10/25/17 18:00 50 Labs Laboratory Tests Test 10/29/17 06:50 White Blood Count 17.3 Red Blood Count 3.63 Hemoglobin 10.5 Hematocrit 31.3 Mean Corpuscular Volume 86.2 Mean Corpuscular Hemoglobin 29.0 Mean Corpuscular Hemoglobin Concent 33.6 Red Cell Distribution Width 14.1 Platelet Count 311 Mean Platelet Volume 8.0 Neutrophils (%) (Auto) 89.4 Lymphocytes (%) (Auto) 4.8 Monocytes (%) (Auto) 5.2 Eosinophils (%) (Auto) 0.5 Basophils (%) (Auto) 0.1 Neutrophils # (Auto) 15.4 Lymphocytes # (Auto) 0.8 Monocytes # (Auto) 0.9 Eosinophils # (Auto) 0.1 Basophils # (Auto) 0.0 CBC Comment DIFF FINAL Differential Comment Blood Urea Nitrogen 7 Creatinine 1.07 Random Glucose 115 Calcium Level 8.1 Sodium Level 141 Potassium Level 3.3 Chloride Level 105 Carbon Dioxide Level 27.6 Anion Gap 8 Estimat Glomerular Filtration Rate 53 Date/Time Source Procedure Growth Status 10/27/17 12:08 Blood Peripheral Aerobic Blood Culture - Preliminary NO GROWTH IN 1 DAY Resulted 10/27/17 12:08 Blood Peripheral Anaerobic Blood Culture - Preliminary NO GROWTH IN 1 DAY Resulted 10/22/17 08:38 Urine Clean Catch Urine Culture - Final NO GROWTH IN 48 HOURS. Complete Cardiovascular: Regular Lungs: Clear Abdomen: Other (lap sites c/d/i; drain with bilary bag--- dark brown bile in collection drainage bag ) Extremities: No edema A/P Assessment and Plan 57 year old female with cholelithiasis; acute pancreatitis -POD5 lap romaine; IOC with distal CBD obstruction -s/p ERCP---unable to cannulate CBD -IR perc drain with internal/ external drain placed -Clinically improving -Wean oxygen -Regular diet -Added PO pain pills -Asked RN Alyssa to contact IR--- drain in leaking at connector and patient + family have questions Attending Statement Abdomen soft, nontender away from external biliary drain. Incisions all healing well. Will get CT to evaluate fro any intra abdominal source of fever, elevated WBC. Pt agrees with this plan. The exam, history, and the medical decision-making described in the above note were completed with the assistance of the mid-level provider. I reviewed and agree with the findings presented. I attest that I had a [id number] encounter with the patient on the same day, and personally performed and documented my assessment and findings in the medical record. Alie Augustin Oct 29, 2017 10:42 Garo Medrano MD Oct 31, 2017 10:51
[2017-10-29] MEDS: POTASSIUM CHLORIDE 10 MEQ CONTROLLED RELEASE TAB PO SCH ×2 (13:13→15:31)
[2017-10-29] MEDS ORDERED: DIATRIZOATE MEGLUM/DIATRIZOATE SOD 9 ML CUP PO ONE (14:15)
--- NOTE | 2017-10-29 14:44 | PD.CONS ---
History of Present Illness Service Infectious Disease Consult Requested By Dr Munson Reason for Consult Evaluate patient with fever Primary Care Physician Unknown Diagnoses: History of Present Illness Patient seen and examined. Records reviewed. Patient is a 57-year-old female, patient had to the hospital with severe epigastric pain, as well as nausea and vomiting which started 1 day prior to admission. On presentation she had an elevated white count. Her LFTs were elevated, and her lipase was up to 7900. Her ultrasound showed some GB wall thickening, with polyps, and dilated common bile duct. Her lipase improved. She underwent lap cholecystectomy and IOC 10/24. She eventually underwent IR procedure and placement of external/internal biliary stent 10/25. She has had some fevers, but they got better until 10/26 she spiked to 101+ x 1. Again had fever yesterday up to 102. Patient has been tolerating her diet, had some nausea but no vomiting. Abdominal pain better. She is voiding ok. Has been having diarrhea, with some mixed semisolid stool. Denies SOB, and not congested, no coughing. No chest pain. She has no central line, and has PIV in her hands. Has no gillis. Has been ambulating in the hallways. Her last CXR was from 10/27 which showed basilar opacities C/W effusions stable compared to prior CXRs. Her WBC has been increasing and up to 17K. Her LFTs are improving. Last lipase 10/25 WNL. She has been on Zosyn since 10/22 and Vancomycin. Infectious Disease consultation has been requested to evaluate patient with fevers. Review of Systems Constitutional: COMPLAINS OF: Fever, Chills, DENIES: Fatigue, Change in appetite Eyes: DENIES: Eye pain Ears, nose, mouth, throat: DENIES: Oral lesions, Throat pain, Ear Pain, Running Nose, Sinus Pain, Toothache Respiratory: DENIES: Cough, Sputum production, Shortness of breath Cardiovascular: DENIES: Chest pain, Palpitations, Dyspnea on Exertion, Lower Extremity Edema Gastrointestinal: COMPLAINS OF: Abdominal pain, Diarrhea, Nausea, DENIES: Vomiting, Difficulty Swallowing Genitourinary: DENIES: Urinary frequency, Urgency, Hematuria, Dysuria Musculoskeletal: DENIES: Joint pain, Joint Swelling, Back pain Integumentary: DENIES: Rash Immunologic/allergic: DENIES: Urticaria Neurologic: DENIES: Headache, Localized weakness Psychiatric: DENIES: Hallucinations Past Family Social History Allergies: Coded Allergies: No Known Allergies (Unverified , 10/19/17) Past Medical History None Past Surgical History Left bunion surgery Right knee surgery Tummy tuck Breast lift Active Ordered Medications Current Medications Medications (Trade) Dose Ordered Sig/Yashira Route Start Time Stop Time Status Last Admin (NS Flush) 2 ml UNSCH PRN IV FLUSH 10/20/17 04:15 10/25/17 05:43 (NS Flush) 2 ml BID IV FLUSH 10/20/17 09:00 10/27/17 08:51 (Zofran Inj) 4 mg Q6H PRN IVP 10/20/17 04:15 10/28/17 13:12 (Narcan Inj) 0.4 mg UNSCH PRN IV PUSH 10/20/17 04:15 (Toshia-Colace) 1 tab BID PO 10/20/17 09:00 10/27/17 08:51 (Milk Of Magnesia Liq) 30 ml Q12H PRN PO 10/20/17 04:15 10/23/17 09:00 (Senokot) 17.2 mg Q12H PRN PO 10/20/17 04:15 (Dulcolax Supp) 10 mg DAILY PRN RECTAL 10/20/17 04:15 (Lactulose Liq) 30 ml DAILY PRN PO 10/20/17 04:15 (Dilaudid Pf Inj) 0.5 mg Q6HR PRN IV 10/21/17 12:00 10/22/17 17:30 Dextrose/Sodium Chloride 1,000 ml @ 75 mls/hr [id number] IV 10/21/17 13:00 10/29/17 09:03 Piperacillin Sod/ Tazobactam Sod 100 ml @ 200 mls/hr Q6H IV 10/22/17 06:00 10/29/17 13:13 Pharmacy Profile Note 0 ml @ 0 mls/hr UNSCH OTHER 10/22/17 05:30 (Dilaudid Pf Inj) 1 mg Q3HR PRN IV PUSH 10/22/17 19:30 10/28/17 18:53 (Duoneb Neb) 1 ampule Q4HR NEB PRN NEB 10/23/17 00:30 10/28/17 12:49 (Miralax) 17 gm DAILY PO 10/23/17 10:30 10/27/17 08:51 (Vasotec Inj) 1.25 mg Q6H PRN IV PUSH 10/25/17 12:15 10/27/17 20:39 (Apresoline) 10 mg Q6H PRN PO 10/26/17 08:45 (Norvasc) 5 mg DAILY PO 10/26/17 09:00 10/29/17 08:38 (Protonix) 40 mg DAILY PO 10/26/17 13:30 10/29/17 08:39 (Ativan) 1 mg Q6H PRN PO 10/26/17 13:30 10/29/17 06:17 Vancomycin HCl 1250 mg/Sodium Chloride 262.5 ml @ 250 mls/hr Q12H IV 10/27/17 16:00 10/29/17 03:23 Miscellaneous Information SPECIFIC LAB TO BE MIGUELINA... ONCE ONCE .XX 10/29/17 15:45 10/29/17 15:46 (Garrett 5-325 Mg) 1 tab Q4H PRN PO 10/29/17 10:30 (Garrett 5-325 Mg) 2 tab Q4H PRN PO 10/29/17 10:30 (KCl) 40 meq Q4H PO 10/29/17 12:00 10/29/17 16:01 10/29/17 13:13 Family History Both parents with diabetes mellitus. Father with CAD. Social History Occasional alcohol use. Denies tobacco Denies illicit drugs. Physical Exam Vital Signs Vital Signs Date Time Temp Pulse Resp B/P (MAP) Pulse Ox O2 Delivery O2 Flow Rate FiO2 10/29/17 12:00 98.2 88 17 138/83 (101) 94 10/29/17 09:46 94 Nasal Cannula 1.00 10/29/17 08:00 100.2 87 16 156/95 (115) 94 10/29/17 04:00 98.9 10/29/17 00:00 98.1 78 20 153/87 (109) 91 10/28/17 20:00 102.2 101 20 140/78 (98) 91 10/28/17 19:29 91 Nasal Cannula 1.00 10/28/17 17:37 96 Nasal Cannula 1.00 10/28/17 16:00 97.8 104 20 143/78 (99) 96 Physical Exam GENERAL: Patient is a well-nourished, well-developed female, awake and alert , not in respiratory distress. SKIN: Cool and dry. No generalized rash, no ecchymoses and no evidence of embolic lesions. HEAD: Atraumatic. Normocephalic. No temporal wasting, or tenderness. EYES: Godfrey conjunctiva. No petechia or hemorrhage. Pupils equal, round and reactive to light. Extraocular movements full and intact. No scleral icterus. No injection or drainage. EARS, NOSE AND THROAT: Nose without bleeding or purulent nasal discharge. No sinus tenderness. Mucous membranes pink and moist. No oral lesions noted. No exudate. No oral thrush. NECK: Trachea midline. Supple and not tender, no meningeal signs CARDIOVASCULAR: Regular rate and rhythm. No murmurs, rubs or gallops heard RESPIRATORY: Decreased breath sounds at bases, with decreased vocal fremitus, worse on L than on R, no E to A changes. No rales, wheezing or rhonchi ABDOMEN: Soft, non-tender, nondistended. Bowel sounds present and normoactive. No guarding. No rebound. No organomegaly. Small incisions are all dry with no evidence of infection. Biliary drain in RUQ, with guerrero green fluid, no sediment noted EXTREMITIES: No clubbing, cyanosis, or edema. No joint effusion, has good ROM. No calf tenderness. Well perfused and warm. NEUROLOGICAL: Awake and alert. Cranial nerves grossly intact. Motor grossly within normal limits. PSYCHIATRIC: Normal affect, calm and cooperative. LINE: No evidence of infection Laboratory Laboratory Tests Test 10/29/17 06:50 White Blood Count 17.3 Red Blood Count 3.63 Hemoglobin 10.5 Hematocrit 31.3 Mean Corpuscular Volume 86.2 Mean Corpuscular Hemoglobin 29.0 Mean Corpuscular Hemoglobin Concent 33.6 Red Cell Distribution Width 14.1 Platelet Count 311 Mean Platelet Volume 8.0 Neutrophils (%) (Auto) 89.4 Lymphocytes (%) (Auto) 4.8 Monocytes (%) (Auto) 5.2 Eosinophils (%) (Auto) 0.5 Basophils (%) (Auto) 0.1 Neutrophils # (Auto) 15.4 Lymphocytes # (Auto) 0.8 Monocytes # (Auto) 0.9 Eosinophils # (Auto) 0.1 Basophils # (Auto) 0.0 CBC Comment DIFF FINAL Differential Comment Blood Urea Nitrogen 7 Creatinine 1.07 Random Glucose 115 Calcium Level 8.1 Sodium Level 141 Potassium Level 3.3 Chloride Level 105 Carbon Dioxide Level 27.6 Anion Gap 8 Estimat Glomerular Filtration Rate 53 Date/Time Source Procedure Growth Status 10/27/17 12:08 Blood Peripheral Aerobic Blood Culture - Preliminary NO GROWTH IN 2 DAYS Resulted 10/27/17 12:08 Blood Peripheral Anaerobic Blood Culture - Preliminary NO GROWTH IN 2 DAYS Resulted 10/22/17 08:38 Urine Clean Catch Urine Culture - Final NO GROWTH IN 48 HOURS. Complete Result Diagram: 10/29/17 0650 10/29/17 0650 Imaging RADIOLOGY STUDIES/FILMS REVIEWED Chest X-Ray 10/27/17 0000 Signed Impressions: Service Date/Time: Friday, October 27, 2017 09:10 - CONCLUSION: Suspected bilateral pleural effusions with some accompanying atelectasis or consolidation at the bases. Tejas Hopkins MD Bile Duct Drainage 10/25/17 0000 Signed Impressions: Service Date/Time: Wednesday, October 25, 2017 13:32 - CONCLUSION: Uncomplicated biliary stent placement as above. Tejas Brown MD Cholangiogram 10/24/17 0000 Signed Impressions: Service Date/Time: September 12:48 - CONCLUSION: Distal common bile duct stones versus debris with very low contrast progressing into the duodenum. Yuriy Vásquez MD Cholangiopancreatography MRI 10/20/17 0000 Signed Impressions: Service Date/Time: Friday, October 20, 2017 15:38 - CONCLUSION: 1. Severe peripancreatic inflammatory change indicating acute pancreatitis. 2. Numerous gallstones in the gallbladder. 3. Common duct diameter is mildly prominent proximally measuring 8 mm. No abnormal filling defect. Chin Griffin MD Abdomen/Pelvis CT 10/20/17 0000 Signed Impressions: Service Date/Time: Friday, October 20, 2017 06:15 - CONCLUSION: Prominent changes of pancreatitis. Gallstones. Tejas Brown MD Gall Bladder Ultrasound 10/19/17 0000 Signed Impressions: Service Date/Time: Friday, October 20, 2017 00:06 - CONCLUSION: Gallbladder adenomyomatosis Dilated common bile duct without clear etiology. Tejas Brown MD Assessment and Plan Assessment and Plan IMPRESSION Recurrent fevers, non-localizing Episode of gallstone pancreatitis, S/P lap romaine S/P PTC with external/internal biliary drain placed 10/25 S/P respiratory insufficiency, has bilateral effusions, stable and respiratory status is better Has no lines, no gillis Has some diarrhea, mixed stool and liquid RECOMMENDATION CT A/P has been ordered UA and C/S Repeat lipase Follow CBC Follow C/S Check stool Continue Zosyn and Vanco for now Add Lactinex Follow temps Monitor progress I will follow along with you Thank you for this consultation Discussed Condition With Explained plan to the patient D/W Lee Ann Torres MD Oct 29, 2017 14:44
[2017-10-29] MEDS: ONDANSETRON HCL 4 MG/2 ML VIAL IVP PRN ×2 (15:30→21:35)
--- NOTE | 2017-10-29 15:40 | HHI.GIFU ---
Subjective Remarks Pt resting in bed, at bedside. Have questions about biliary drain. abd pain improving. Having loose stool. Objective Vitals I&O Vital Signs Date Time Temp Pulse Resp B/P (MAP) Pulse Ox O2 Delivery O2 Flow Rate FiO2 10/29/17 12:00 98.2 88 17 138/83 (101) 94 10/29/17 09:46 94 Nasal Cannula 1.00 10/29/17 08:00 100.2 87 16 156/95 (115) 94 10/29/17 04:00 98.9 10/29/17 00:00 98.1 78 20 153/87 (109) 91 10/28/17 20:00 102.2 101 20 140/78 (98) 91 10/28/17 19:29 91 Nasal Cannula 1.00 10/28/17 17:37 96 Nasal Cannula 1.00 10/28/17 16:00 97.8 104 20 143/78 (99) 96 I/O 10/28/17 10/28/17 10/28/17 10/29/17 10/29/17 10/29/17 07:00 15:00 23:00 07:00 15:00 23:00 Intake Total 930 ml 320 ml 2207.5 ml 1470 ml Output Total 125 ml 160 ml 360 ml Balance 805 ml 320 ml 2047.5 ml 1110 ml Intake Oral 380 ml 120 ml 960 ml 600 ml IV Total 550 ml 200 ml 1247.5 ml 870 ml Output Urine Total 0 ml Drainage Total 125 ml 160 ml 360 ml # Voids 4 4 # Bowel Movements 3 4 Laboratory Laboratory Tests Test 10/29/17 06:50 White Blood Count 17.3 Red Blood Count 3.63 Hemoglobin 10.5 Hematocrit 31.3 Mean Corpuscular Volume 86.2 Mean Corpuscular Hemoglobin 29.0 Mean Corpuscular Hemoglobin Concent 33.6 Red Cell Distribution Width 14.1 Platelet Count 311 Mean Platelet Volume 8.0 Neutrophils (%) (Auto) 89.4 Lymphocytes (%) (Auto) 4.8 Monocytes (%) (Auto) 5.2 Eosinophils (%) (Auto) 0.5 Basophils (%) (Auto) 0.1 Neutrophils # (Auto) 15.4 Lymphocytes # (Auto) 0.8 Monocytes # (Auto) 0.9 Eosinophils # (Auto) 0.1 Basophils # (Auto) 0.0 CBC Comment DIFF FINAL Differential Comment Blood Urea Nitrogen 7 Creatinine 1.07 Random Glucose 115 Calcium Level 8.1 Sodium Level 141 Potassium Level 3.3 Chloride Level 105 Carbon Dioxide Level 27.6 Anion Gap 8 Estimat Glomerular Filtration Rate 53 Date/Time Source Procedure Growth Status 10/27/17 12:08 Blood Peripheral Aerobic Blood Culture - Preliminary NO GROWTH IN 2 DAYS Resulted 10/27/17 12:08 Blood Peripheral Anaerobic Blood Culture - Preliminary NO GROWTH IN 2 DAYS Resulted 10/22/17 08:38 Urine Clean Catch Urine Culture - Final NO GROWTH IN 48 HOURS. Complete Imaging Last Impressions Chest X-Ray 10/27/17 0000 Signed Impressions: Service Date/Time: Friday, October 27, 2017 09:10 - CONCLUSION: Suspected bilateral pleural effusions with some accompanying atelectasis or consolidation at the bases. Tejas Hopkins MD Bile Duct Drainage 10/25/17 0000 Signed Impressions: Service Date/Time: Wednesday, October 25, 2017 13:32 - CONCLUSION: Uncomplicated biliary stent placement as above. Tejas Brown MD Cholangiogram 10/24/17 0000 Signed Impressions: Service Date/Time: September 12:48 - CONCLUSION: Distal common bile duct stones versus debris with very low contrast progressing into the duodenum. Yuriy Vásquez MD Cholangiopancreatography MRI 10/20/17 0000 Signed Impressions: Service Date/Time: Friday, October 20, 2017 15:38 - CONCLUSION: 1. Severe peripancreatic inflammatory change indicating acute pancreatitis. 2. Numerous gallstones in the gallbladder. 3. Common duct diameter is mildly prominent proximally measuring 8 mm. No abnormal filling defect. Chin Griffin MD Abdomen/Pelvis CT 10/20/17 0000 Signed Impressions: Service Date/Time: Friday, October 20, 2017 06:15 - CONCLUSION: Prominent changes of pancreatitis. Gallstones. Tejas Brown MD Gall Bladder Ultrasound 10/19/17 0000 Signed Impressions: Service Date/Time: Friday, October 20, 2017 00:06 - CONCLUSION: Gallbladder adenomyomatosis Dilated common bile duct without clear etiology. Tejas Brown MD Physical Exam HEENT: Normocephalic; atraumatic CHEST: short , low volumes CARDIAC: RRR ABDOMEN: mildly distended, soft, BS + nontender EXTREMITIES: No clubbing, cyanosis, or edema. SKIN: Normal; no rash; no jaundice. Obese MAP AND CHART MOUNTER: No focal deficits; alert and oriented times three. Assessment and Plan Plan ASSESSMENT - Pancreatitis most likely secondary to CBD stones. MRCP (10/20) --> Severe peripancreatic inflammatory change indicating acute pancreatitis. Numerous gallstones in gallbladder. Common duct diameter is mildly prominent proximally measuring 8 mm. No abnormal filling defect. S/P cholecystectomy. Cholangiogram (10/24) --> Distal common bile duct stones versus debris with very low contrast progressing into the duodenum. LFTs and lipase improving. , 12-29 attempt ERCP, stent placed per IR, now has biliary drain - Leukocytosis - ID following now. vanc, zosyn PLAN - await c diff - await CT -Diet as tolerated, heart healthy - probiotics - Monitor labs - Continue antibiotics - Monitor labs - Supportive care Fawn Colin Oct 29, 2017 15:40
[2017-10-29] MEDS ORDERED: PHARMACY ORDERED LAB ONE (15:45)
--- NOTE | 2017-10-29 17:02 | HHI.PR ---
Subjective Remarks Patient resting in bed, and radiology Dr. Macias at the bedside, we all discussed in length patient had multiple question, Dr. Macias answered all of her questions regarding the procedure Patient ran fever of 102 yesterday at 8 PM, and 100.2 this morning, she still have leukocytosis of 17,000, blood pressure not optimal at 156/95 creatinine increased to 1.07 patient is day #5 post op Plan is to clamp external drainer monitor for any worsening biliary infection Patient is on Zosyn still I will consult infectious disease for further antibiotic management Objective Vitals Vital Signs Date Time Temp Pulse Resp B/P (MAP) Pulse Ox O2 Delivery O2 Flow Rate FiO2 10/29/17 12:00 98.2 88 17 138/83 (101) 94 10/29/17 09:46 94 Nasal Cannula 1.00 10/29/17 08:30 Room Air 10/29/17 08:00 100.2 87 16 156/95 (115) 94 10/29/17 04:00 98.9 10/29/17 00:00 98.1 78 20 153/87 (109) 91 10/28/17 20:00 102.2 101 20 140/78 (98) 91 10/28/17 19:29 91 Nasal Cannula 1.00 10/28/17 17:37 96 Nasal Cannula 1.00 I/O 10/28/17 10/28/17 10/28/17 10/29/17 10/29/17 10/29/17 07:00 15:00 23:00 07:00 15:00 23:00 Intake Total 930 ml 320 ml 2207.5 ml 1470 ml Output Total 125 ml 160 ml 360 ml Balance 805 ml 320 ml 2047.5 ml 1110 ml Intake Oral 380 ml 120 ml 960 ml 600 ml IV Total 550 ml 200 ml 1247.5 ml 870 ml Output Urine Total 0 ml Drainage Total 125 ml 160 ml 360 ml # Voids 4 4 # Bowel Movements 3 4 Result Diagram: 10/29/17 0650 10/29/17 0650 Objective Remarks GENERAL: This is a well-nourished, well-developed patient, in no apparent distress. CARDIOVASCULAR: Regular rate and rhythm without murmurs, gallops, or rubs. RESPIRATORY: Clear to auscultation. Breath sounds equal bilaterally. No wheezes , rales, or rhonchi. GASTROINTESTINAL: Abdomen soft, tender to palpation, nondistended. Normal active bowel sounds, biliary external drainer in place MUSCULOSKELETAL: Extremities without clubbing, cyanosis, or edema. NEURO: Alert & Oriented x4 to person, place, time, situation. Moves all ext x4 A/P Assessment and Plan 10/29/17:Patient ran fever of 102 yesterday at 8 PM, and 100.2 this morning, she still have leukocytosis of 17,000, blood pressure not optimal at 156/95 creatinine increased to 1.07 patient is day #5 post op, will continue Zosyn and Vanco, I will consult ID, monitor CBC in a.m., repeat BMP, she is on D5 half- normal saline, will continue and monitor closely. Lengthy discussion with the patient, and radiology Dr. Macias, plan to clamp her external drainer and monitor clinical course she may need 24 hours of observation after clamping the external drainer. IR following 1. Acute pancreatitis IV fluid hydration Patient with transaminitis and elevated common bile duct on ultrasound s/p Laparoscopic cholecystectomy with intraoperative cholangiography 09/24 Intraoperative cholangiography demonstrated distal common bile duct obstruction , question stone versus edema. GI following and she is s/p ERCP due to filling defect on intraoperative cholangiogram. Failed free cannulation. s/p PTC by IR ( now has internal and external biliary stent placement). Pt's respiratory status had worsened post op and required transfer to ICU for close monitoring. s/p 40mg IV lasix . Now on Nasal canula at 2L and improving. Will continue to wean. on vanco and zosyn IV. Pain control per sx. 2. Hypertension/tachycardia Patient without history of hypertension May be secondary to pain or anxiety/pain. on vasotec prn. s/p hydralazine IV 10mg x1 and 10mg po hydralazine prn BP>160/90. s/p dose of labetalol in PACU. on amlodipine 5mg po daily and titrate as needed. Monitor 3. ANANT with creatinine increased to 1.03 4. Hypokalemia Replace potassium, monitor BMP Discharge Planning Still running fever with leukocytosis, not ready yet for discharge Luz Munson MD Oct 29, 2017 17:02
[2017-10-29] MEDS ORDERED: IOHEXOL 350 MG/ML 10 ML VIAL (for RAD DIAG) IVCONTRAST ONE (18:41)
--- NOTE | 2017-10-29 19:03 | RADRPT ---
EXAM DATE/TIME: 10/29/2017 18:34 [facility] COMPARISON: CT ABDOMEN & PELVIS W/O CONTRAST, October 20, 2017, 6:15. INDICATIONS : Abdomen pain. Post cholecystectomy. IV CONTRAST: 70 cc Omnipaque 350 (iohexol) IV ORAL CONTRAST: Prescribed oral contrast ingested. RADIATION DOSE: 15.23 CTDIvol (mGy) MEDICAL HISTORY : Pancreatitis. SURGICAL HISTORY : Cholecystectomy. ENCOUNTER: Initial ACUITY: 1 day PAIN SCALE: 10/10 LOCATION: Bilateral abdomen TECHNIQUE: Volumetric scanning of the abdomen and pelvis was performed. Using automated exposure control and ad justment of the mA and/or kV according to patient size, radiation dose was kept as low as reasonably achievable to obtain optimal diagnostic quality images. DICOM format image data is available electro nically for review and comparison. FINDINGS: LOWER LUNGS: Small pleural effusions and bibasilar consolidation.. LIVER: Homogeneous density without lesion. There is no dilation of the biliary tree. Cholecystectomy. Perc utaneous biliary drain noted. SPLEEN: Normal size without lesion. PANCREAS: The pancreas is heterogeneous and engorged with prominent area of low attenuation within the body lik renee necrosis. Extensive inflammatory changes consistent with acute pancreatitis. No pseudocyst or abs cess. KIDNEYS: Normal in size and shape. There is no mass, stone or hydronephrosis. ADRENAL GLANDS: Within normal limits. VASCULAR: There is no aortic aneurysm. BOWEL/MESENTERY: Wall thickening and scattered diverticulosis.. There is no free intraperitoneal air or fluid. ABDOMINAL WALL: Within normal limits. RETROPERITONEUM: There is no lymphadenopathy. BLADDER: No wall thickening or mass. REPRODUCTIVE: Within normal limits. INGUINAL: There is no lymphadenopathy or hernia. MUSCULOSKELETAL: Within normal limits for patient age. CONCLUSION: 1. Percutaneous biliary drain. 2. Acute pancreatitis with central area of decreased attenuation in the body suggesting necrosis. No abscess or pseudocyst. 3. Bibasilar consolidation and small pleural effusions. Hill Grimm MD on October 29, 2017 at 18:57 Board Certified Radiologist. This report was verified electronically.
[2017-10-29] MEDS: LACTOBACILLUS ACIDOPHILUS TAB PO SCH (20:02)
[2017-10-29] MEDS: ENALAPRILAT 1.25 MG/ML VIAL IV PUSH PRN (20:02)
[2017-10-29] MEDS ORDERED: ACETAMINOPHEN 325 MG TAB PO ONE (20:30)
[2017-10-30] VITALS (9 sets, daily range): BP systolic 155–172; BP diastolic 83–94; PULSE 80–98; RESP 16–20; TEMP 98–100.2; O2SAT 92–96
[2017-10-30] MEDS: VANCOMYCIN 1,500 MG/NS 500 ML IV SCH ×4 (00:31→17:53)
[2017-10-30] MEDS ORDERED: ACETAMINOPHEN 325 MG TAB PO PRN (00:45)
[2017-10-30] MEDS: DEXT 5%-NACL 0.45% 1000 ML INJ 1,000 ML IV SCH (03:34)
[2017-10-30] MEDS: PIPERACIL-TAZO 4.5 GM PREMIX 100 ML IV SCH ×4 (05:09→23:57)
[2017-10-30] MEDS: LORazepam 1 MG TAB PO PRN ×3 (05:26→20:45)
[2017-10-30] MEDS: ONDANSETRON HCL 4 MG/2 ML VIAL IVP PRN ×2 (05:26→13:41)
[2017-10-30 07:36] LABS: ALBUMIN 1.8 GM/DL (3.4-5.0); BICARBONATE 25.9 MEQ/L (21.0-32.0); CALCIUM 8.5 MG/DL (8.5-10.1); CREATININE 1.05 MG/DL (0.50-1.00)
[2017-10-30 07:38] LABS: DIRECT BILIRUBIN ADULT 0.3 MG/DL (0.0-0.2); PHOSPHORUS 2.8 MG/DL (2.5-4.9)
[2017-10-30 07:41] LABS: INDIRECT BILIRUBIN 0.5 MG/DL (0.0-0.8); TOTAL BILIRUBIN ADULT 0.8 MG/DL (0.2-1.0); TOTAL PROTEIN 6.6 GM/DL (6.4-8.2)
[2017-10-30] MEDS: POLYETHYLENE GLYCOL 17 GM PKG PO SCH (08:54)
[2017-10-30] MEDS: LACTOBACILLUS ACIDOPHILUS TAB PO SCH ×3 (08:54→17:51)
[2017-10-30] MEDS: DOCUSATE SODIUM 50 MG/SENNA 8.6 MG TAB PO SCH ×2 (08:54→20:45)
[2017-10-30] MEDS: PANTOPRAZOLE SOD 40 MG DELAYED RELEASE TAB PO SCH (08:54)
[2017-10-30] MEDS: amLODIPine BESYLATE 5 MG TAB PO SCH (08:54)
[2017-10-30] MEDS: SODIUM CHLORIDE 0.9% FLUSH 10 ML FLUSH IV FLUSH SCH ×2 (08:56→20:44)
[2017-10-30 10:25] LABS: AUTOMATED NEUTROPHIL # 14.2 TH/MM3 (1.8-7.7); BASOPHIL % 0.2 % (0.0-2.0); EOSINOPHIL # 0.1 TH/MM3 (0-0.4); EOSINOPHIL % 0.8 % (0.0-4.0); HEMATOCRIT 33.7 % (35.0-46.0); HEMOGLOBIN 11.2 GM/DL (11.6-15.3); LYMPH % 5.5 % (9.0-44.0); LYMPHOCYTE # 0.9 TH/MM3 (1.0-4.8); MEAN CELL VOLUME 86.2 FL (80.0-100.0); MEAN CORPUSCULAR HEMOGLOBIN 28.7 PG (27.0-34.0); MEAN CORPUSCULAR HGB CONC 33.3 % (32.0-36.0); MEAN PLATELET VOLUME 8.2 FL (7.0-11.0); MONO % 6.6 % (0.0-8.0); MONOCYTE # 1.1 TH/MM3 (0-0.9); NEUT % 86.9 % (16.0-70.0); PLATELET COUNT 400 TH/MM3 (150-450); RED BLOOD COUNT 3.91 MIL/MM3 (4.00-5.30); RED CELL DISTRIBUTION WIDTH 13.9 % (11.6-17.2); WHITE BLOOD COUNT 16.4 TH/MM3 (4.0-11.0)
--- NOTE | 2017-10-30 11:34 | HHI.GIFU ---
Subjective Remarks Pt resting in bed, at bedside. Going for cholangiogram today. She is hungry. Objective Vitals I&O Vital Signs Date Time Temp Pulse Resp B/P (MAP) Pulse Ox O2 Delivery O2 Flow Rate FiO2 10/30/17 08:00 99.4 81 18 156/94 (114) 94 10/30/17 04:00 98.7 85 20 172/90 (117) 93 10/30/17 00:00 100.2 88 20 155/83 (107) 93 10/29/17 21:04 95 Nasal Cannula 1.00 10/29/17 20:00 100.9 95 20 176/96 (122) 93 10/29/17 19:00 Room Air 10/29/17 16:00 99.9 99 18 189/99 (129) 93 10/29/17 12:00 98.2 88 17 138/83 (101) 94 I/O 10/29/17 10/29/17 10/29/17 10/30/17 10/30/17 10/30/17 07:00 15:00 23:00 07:00 15:00 23:00 Intake Total 1470 ml 100 ml 610 ml 720 ml Output Total 360 ml 275 ml 575 ml Balance 1110 ml 100 ml 335 ml 145 ml Intake Oral 600 ml 360 ml 720 ml IV Total 870 ml 100 ml 250 ml Drainage Total 360 ml 275 ml 575 ml # Voids 4 8 3 # Bowel Movements 4 8 1 Laboratory Laboratory Tests Test 10/29/17 17:55 10/30/17 06:53 10/30/17 09:55 Vancomycin Level Trough 14.5 Blood Urea Nitrogen 7 Creatinine 1.05 Random Glucose 115 Total Protein 6.6 Albumin 1.8 Calcium Level 8.5 Phosphorus Level 2.8 Magnesium Level 2.0 Alkaline Phosphatase 139 Aspartate Amino Transf (AST/SGOT) 26 Alanine Aminotransferase (ALT/SGPT) 26 Total Bilirubin 0.8 Direct Bilirubin 0.3 Sodium Level 139 Potassium Level 3.5 Chloride Level 105 Carbon Dioxide Level 25.9 Anion Gap 8 Estimat Glomerular Filtration Rate 54 Indirect Bilirubin 0.5 Lipase 296 White Blood Count 16.4 Red Blood Count 3.91 Hemoglobin 11.2 Hematocrit 33.7 Mean Corpuscular Volume 86.2 Mean Corpuscular Hemoglobin 28.7 Mean Corpuscular Hemoglobin Concent 33.3 Red Cell Distribution Width 13.9 Platelet Count 400 Mean Platelet Volume 8.2 Neutrophils (%) (Auto) 86.9 Lymphocytes (%) (Auto) 5.5 Monocytes (%) (Auto) 6.6 Eosinophils (%) (Auto) 0.8 Basophils (%) (Auto) 0.2 Neutrophils # (Auto) 14.2 Lymphocytes # (Auto) 0.9 Monocytes # (Auto) 1.1 Eosinophils # (Auto) 0.1 Basophils # (Auto) 0.0 CBC Comment DIFF FINAL Differential Comment Date/Time Source Procedure Growth Status 10/27/17 12:08 Blood Peripheral Aerobic Blood Culture - Preliminary NO GROWTH IN 3 DAYS Resulted 10/27/17 12:08 Blood Peripheral Anaerobic Blood Culture - Preliminary NO GROWTH IN 3 DAYS Resulted 10/22/17 08:38 Urine Clean Catch Urine Culture - Final NO GROWTH IN 48 HOURS. Complete Imaging Last Impressions Abdomen/Pelvis CT 10/29/17 0000 Signed Impressions: Service Date/Time: Sunday, October 29, 2017 18:34 - CONCLUSION: 1. Percutaneous biliary drain. 2. Acute pancreatitis with central area of decreased attenuation in the body suggesting necrosis. No abscess or pseudocyst. 3. Bibasilar consolidation and small pleural effusions. Hill Grimm MD Chest X-Ray 10/27/17 0000 Signed Impressions: Service Date/Time: Friday, October 27, 2017 09:10 - CONCLUSION: Suspected bilateral pleural effusions with some accompanying atelectasis or consolidation at the bases. Tejas Hopkins MD Bile Duct Drainage 10/25/17 0000 Signed Impressions: Service Date/Time: Wednesday, October 25, 2017 13:32 - CONCLUSION: Uncomplicated biliary stent placement as above. Tejas Brown MD Cholangiogram 10/24/17 0000 Signed Impressions: Service Date/Time: September 12:48 - CONCLUSION: Distal common bile duct stones versus debris with very low contrast progressing into the duodenum. Yuriy Vásquez MD Cholangiopancreatography MRI 10/20/17 0000 Signed Impressions: Service Date/Time: Friday, October 20, 2017 15:38 - CONCLUSION: 1. Severe peripancreatic inflammatory change indicating acute pancreatitis. 2. Numerous gallstones in the gallbladder. 3. Common duct diameter is mildly prominent proximally measuring 8 mm. No abnormal filling defect. Chin Griffin MD Gall Bladder Ultrasound 10/19/17 0000 Signed Impressions: Service Date/Time: Friday, October 20, 2017 00:06 - CONCLUSION: Gallbladder adenomyomatosis Dilated common bile duct without clear etiology. Tejas Brown MD Physical Exam HEENT: Normocephalic; atraumatic CHEST: short , low volumes CARDIAC: RRR ABDOMEN: mildly distended, soft, BS + nontender EXTREMITIES: No clubbing, cyanosis, or edema. SKIN: Normal; no rash; no jaundice. Obese [employer]: No focal deficits; alert and oriented times three. Assessment and Plan Plan ASSESSMENT - Pancreatitis most likely secondary to CBD stones, now with necrosis. MRCP () --> Severe peripancreatic inflammatory change indicating acute pancreatitis. Numerous gallstones in gallbladder. Common duct diameter is mildly prominent proximally measuring 8 mm. No abnormal filling defect. S/P cholecystectomy. Cholangiogram (10/24) --> Distal common bile duct stones versus debris with very low contrast progressing into the duodenum. LFTs and lipase improving. , 12-29 attempt ERCP, stent placed per IR, now has biliary drain. CT abd 10/29/16 shows acute pancreatitis and suggestive of necrosis, no abscess or pseudocyst. lipase WNL, LFTs improving. - Leukocytosis - ID following now. vanc, zosyn PLAN - await cholangiogram - PTC tube needs to be pulled out by IR after obtaining tube cholangiogram - consider meropenem or imepenem, will defer to ID - await c diff - low fat diet - probiotics - Monitor labs - Continue antibiotics per ID - Monitor labs - consider ERCP in & out as outpt - Supportive care - Dr Ahmadi d/w IR Pt discussed with Dr Ahmadi and this note is written on his behalf Fawn Colin Oct 30, 2017 11:34
[2017-10-30] MEDS ORDERED: IOHEXOL 350 MG/ML 50 ML BTL (for RAD DIAG) OTHER ONE (12:51)
--- NOTE | 2017-10-30 14:08 | RADRPT ---
EXAM DATE/TIME: 10/30/2017 13:32 [facility] COMPARISON: BILIARY DRAINAGE W STENT PLACE, October 25, 2017, 13:32. INDICATIONS : Patient with acute pancreatitis. Evaluating exsiting chol. tube. MEDICAL HISTORY : 1. Severe abdominal pain and nuasea/vomiting. SURGICAL HISTORY : 1. Lt bunion surgery 2. Right knee surgery 3. tummy tuck 4. breast lift. ENCOUNTER: Subsequent ACUITY: 4 - 6 days PAIN SCORE: 2/10 LOCATION: stomach FLUORO TIME: 0.6 minutes IMAGE SERIES: 1 CONTRAST: 5 cc Omnipaque (iohexol) 350 PROCEDURE : 1. rotational cholangiogram The risks, benefits and alternatives to the procedure were explained and verbal and written consent w as obtained. The site was prepped in sterile fashion. Full sterile technique was used, including ca p, mask, sterile gloves and gown and a large sterile sheet. Hand hygiene and 2% chlorhexidine and/or betadine/alcohol prep was utilized per protocol for cutaneous antisepsis. Approximately 10 cc of contrast was administered through the patient's existing percutaneous biliary drain. Rotational cholangiography was performed. Results: The tube is in excellent position. The intrahepatic ducts, proper hepatic duct and proximal common bi le duct are normal in caliber. There is tapered narrowing of the distal common duct beginning approxi mately 1 cm above the level of and foot and extending down to the duodenum. Presumably, this is secon erika to the patient's pancreatitis. No stones are seen. No significant residual filling defect is identified within the common duct or in trahepatic biliary system. The patient is post cholecystectomy. CONCLUSION: 1. No retained stones identified. 2. Tapered narrowing of the distal common bile duct down near the level of the ampulla. 3. Internal/external biliary drain in satisfactory position. 4. The tube was capped. Christiano Macias MD on October 30, 2017 at 14:03 Board Certified Radiologist. This report was verified electronically.
--- NOTE | 2017-10-30 14:38 | HHI.PR ---
Subjective Subjective Notes Resting in bed Uneventful night Feeling better Objective Vitals/I&O Vital Signs Date Time Temp Pulse Resp B/P (MAP) Pulse Ox O2 Delivery O2 Flow Rate FiO2 10/30/17 12:00 99.1 89 17 165/89 (114) 92 10/30/17 09:32 Nasal Cannula 1.00 Labs Laboratory Tests Test 10/29/17 17:55 10/30/17 06:53 10/30/17 09:55 Vancomycin Level Trough 14.5 Blood Urea Nitrogen 7 Creatinine 1.05 Random Glucose 115 Total Protein 6.6 Albumin 1.8 Calcium Level 8.5 Phosphorus Level 2.8 Magnesium Level 2.0 Alkaline Phosphatase 139 Aspartate Amino Transf (AST/SGOT) 26 Alanine Aminotransferase (ALT/SGPT) 26 Total Bilirubin 0.8 Direct Bilirubin 0.3 Sodium Level 139 Potassium Level 3.5 Chloride Level 105 Carbon Dioxide Level 25.9 Anion Gap 8 Estimat Glomerular Filtration Rate 54 Indirect Bilirubin 0.5 Lipase 296 White Blood Count 16.4 Red Blood Count 3.91 Hemoglobin 11.2 Hematocrit 33.7 Mean Corpuscular Volume 86.2 Mean Corpuscular Hemoglobin 28.7 Mean Corpuscular Hemoglobin Concent 33.3 Red Cell Distribution Width 13.9 Platelet Count 400 Mean Platelet Volume 8.2 Neutrophils (%) (Auto) 86.9 Lymphocytes (%) (Auto) 5.5 Monocytes (%) (Auto) 6.6 Eosinophils (%) (Auto) 0.8 Basophils (%) (Auto) 0.2 Neutrophils # (Auto) 14.2 Lymphocytes # (Auto) 0.9 Monocytes # (Auto) 1.1 Eosinophils # (Auto) 0.1 Basophils # (Auto) 0.0 CBC Comment DIFF FINAL Differential Comment Date/Time Source Procedure Growth Status 10/27/17 12:08 Blood Peripheral Aerobic Blood Culture - Preliminary NO GROWTH IN 3 DAYS Resulted 10/27/17 12:08 Blood Peripheral Anaerobic Blood Culture - Preliminary NO GROWTH IN 3 DAYS Resulted 10/22/17 08:38 Urine Clean Catch Urine Culture - Final NO GROWTH IN 48 HOURS. Complete Cardiovascular: Regular Lungs: Clear Abdomen: Other (ext/int drain in place with bilary drainage; lap sites c/d/i with Steri strips in place; minimally tender to palpation ) Extremities: No edema A/P Assessment and Plan 57 year old female with cholelithiasis; acute pancreatitis -POD6 lap romaine; IOC with distal CBD obstruction -s/p ERCP---unable to cannulate CBD -IR perc drain with internal/ external drain placed---cholangiogram planed for today -Clinically improving -Wean oxygen -Regular diet PO pain pills -No acute surgical issues at this time Attending Statement Ct shows big swollen pancreas with signs of necrosis, no abscess. B pleural effusions, small. No source outside of just a really ugly pancreas for fever source. The exam, history, and the medical decision-making described in the above note were completed with the assistance of the mid-level provider. I reviewed and agree with the findings presented. I attest that I had a [id number] encounter with the patient on the same day, and personally performed and documented my assessment and findings in the medical record. Alie Augustin Oct 30, 2017 14:38 Garo Medrano MD Oct 31, 2017 10:57
--- NOTE | 2017-10-30 15:00 | HHI.PR ---
Subjective Remarks patient had particular of 100.9 at 9 PM yesterday also she had 100.2 at midnight I discussed with her at the bedside Feeling slightly better Objective Vitals Vital Signs Date Time Temp Pulse Resp B/P (MAP) Pulse Ox O2 Delivery O2 Flow Rate FiO2 10/30/17 12:00 99.1 89 17 165/89 (114) 92 10/30/17 09:32 96 Nasal Cannula 1.00 10/30/17 08:00 99.4 81 18 156/94 (114) 94 10/30/17 04:00 98.7 85 20 172/90 (117) 93 10/30/17 00:00 100.2 88 20 155/83 (107) 93 10/29/17 21:04 95 Nasal Cannula 1.00 10/29/17 20:00 100.9 95 20 176/96 (122) 93 10/29/17 19:00 Room Air 10/29/17 16:00 99.9 99 18 189/99 (129) 93 I/O 10/29/17 10/29/17 10/29/17 10/30/17 10/30/17 10/30/17 07:00 15:00 23:00 07:00 15:00 23:00 Intake Total 1470 ml 100 ml 610 ml 720 ml Output Total 360 ml 275 ml 575 ml Balance 1110 ml 100 ml 335 ml 145 ml Intake Oral 600 ml 360 ml 720 ml IV Total 870 ml 100 ml 250 ml Drainage Total 360 ml 275 ml 575 ml # Voids 4 8 3 # Bowel Movements 4 8 1 Result Diagram: 10/30/17 0955 10/30/17 0653 Objective Remarks GENERAL: This is a well-nourished, well-developed patient, in no apparent distress. CARDIOVASCULAR: Regular rate and rhythm without murmurs, gallops, or rubs. RESPIRATORY: Clear to auscultation. Breath sounds equal bilaterally. No wheezes , rales, or rhonchi. GASTROINTESTINAL: Abdomen soft, tender to palpation, nondistended. Normal active bowel sounds, biliary external drainer in place MUSCULOSKELETAL: Extremities without clubbing, cyanosis, or edema. NEURO: Alert & Oriented x4 to person, place, time, situation. Moves all ext x4 A/P Assessment and Plan 10/29/17:Patient ran fever of 102 yesterday at 8 PM, and 100.2 this morning, she still have leukocytosis of 17,000, blood pressure not optimal at 156/95 creatinine increased to 1.07 patient is day #5 post op, will continue Zosyn and Vanco, I will consult ID, monitor CBC in a.m., repeat BMP, she is on D5 half- normal saline, will continue and monitor closely. Lengthy discussion with the patient, and radiology Dr. Macias, plan to clamp her external drainer and monitor clinical course she may need 24 hours of observation after clamping the external drainer. IR following 10/30/17: again fever of 100.9 yesterday night, creatinine trended back to normal 26, creatinine at 1.05 be going for cholangiogram today 1. Acute pancreatitis IV fluid hydration Patient with transaminitis and elevated common bile duct on ultrasound s/p Laparoscopic cholecystectomy with intraoperative cholangiography 09/24 Intraoperative cholangiography demonstrated distal common bile duct obstruction , question stone versus edema. GI following and she is s/p ERCP due to filling defect on intraoperative cholangiogram. Failed free cannulation. s/p PTC by IR ( now has internal and external biliary stent placement). Pt's respiratory status had worsened post op and required transfer to ICU for close monitoring. s/p 40mg IV lasix . Now on Nasal canula at 2L and improving. Will continue to wean. on vanco and zosyn IV. Pain control per sx. 2. Hypertension/tachycardia Patient without history of hypertension May be secondary to pain or anxiety/pain. on vasotec prn. s/p hydralazine IV 10mg x1 and 10mg po hydralazine prn BP>160/90. s/p dose of labetalol in PACU. on amlodipine 5mg po daily and titrate as needed. Monitor 3. ANANT with creatinine increased to 1.03 4. Hypokalemia Replace potassium, monitor BMP Discharge Planning Still running fever with leukocytosis, not ready yet for discharge Luz Munson MD Oct 30, 2017 15:00
[2017-10-31 00:28] VITALS: BP 159/93; PULSE 85; RESP 18; TEMP 99.1; O2SAT 92
[2017-10-31] MEDS: DEXT 5%-NACL 0.45% 1000 ML INJ 1,000 ML IV SCH ×2 (03:23→17:09)
[2017-10-31] MEDS: PIPERACIL-TAZO 4.5 GM PREMIX 100 ML IV SCH ×2 (05:22→12:07)
[2017-10-31 08:00] VITALS: BP 141/82; PULSE 86; RESP 21; TEMP 99.1; O2SAT 94
[2017-10-31 08:10] LABS: AUTOMATED NEUTROPHIL # 10.8 TH/MM3 (1.8-7.7); BASOPHIL % 0.1 % (0.0-2.0); EOSINOPHIL # 0.2 TH/MM3 (0-0.4); EOSINOPHIL % 1.3 % (0.0-4.0); HEMATOCRIT 32.3 % (35.0-46.0); HEMOGLOBIN 10.9 GM/DL (11.6-15.3); LYMPH % 7.8 % (9.0-44.0); MEAN CELL VOLUME 85.7 FL (80.0-100.0); MEAN CORPUSCULAR HEMOGLOBIN 28.8 PG (27.0-34.0); MEAN CORPUSCULAR HGB CONC 33.6 % (32.0-36.0); MEAN PLATELET VOLUME 8.3 FL (7.0-11.0); MONO % 7.9 % (0.0-8.0); NEUT % 82.9 % (16.0-70.0); PLATELET COUNT 414 TH/MM3 (150-450); RED BLOOD COUNT 3.77 MIL/MM3 (4.00-5.30); RED CELL DISTRIBUTION WIDTH 13.6 % (11.6-17.2); WHITE BLOOD COUNT 13.1 TH/MM3 (4.0-11.0)
[2017-10-31] MEDS: SODIUM CHLORIDE 0.9% FLUSH 10 ML FLUSH IV FLUSH SCH ×2 (09:00→19:43)
[2017-10-31] MEDS: DOCUSATE SODIUM 50 MG/SENNA 8.6 MG TAB PO SCH ×2 (09:00→19:43)
[2017-10-31] MEDS: POLYETHYLENE GLYCOL 17 GM PKG PO SCH (09:00)
[2017-10-31] MEDS: LACTOBACILLUS ACIDOPHILUS TAB PO SCH ×3 (09:23→17:07)
[2017-10-31] MEDS: LORazepam 1 MG TAB PO PRN ×2 (09:23→17:14)
[2017-10-31] MEDS: amLODIPine BESYLATE 5 MG TAB PO SCH (09:24)
[2017-10-31] MEDS: PANTOPRAZOLE SOD 40 MG DELAYED RELEASE TAB PO SCH (09:24)
[2017-10-31] MEDS: VANCOMYCIN 1,500 MG/NS 500 ML IV SCH ×2 (11:08)
[2017-10-31] MEDS: ONDANSETRON HCL 4 MG/2 ML VIAL IVP PRN ×2 (11:09→17:07)
[2017-10-31 11:37] VITALS: BP 130/75; PULSE 75; TEMP 98.7; O2SAT 97
--- NOTE | 2017-10-31 11:39 | HHI.PR ---
Subjective Subjective Notes feels better, walked halls twice without walker. Eating well, having Bms, voids. Pain well controlled. Anxious to get home. Objective Vitals/I&O Vital Signs Date Time Temp Pulse Resp B/P (MAP) Pulse Ox O2 Delivery O2 Flow Rate FiO2 10/31/17 08:00 99.1 86 21 141/82 (101) 94 10/30/17 18:10 Nasal Cannula 1.00 Labs Laboratory Tests Test 10/31/17 07:13 White Blood Count 13.1 Red Blood Count 3.77 Hemoglobin 10.9 Hematocrit 32.3 Mean Corpuscular Volume 85.7 Mean Corpuscular Hemoglobin 28.8 Mean Corpuscular Hemoglobin Concent 33.6 Red Cell Distribution Width 13.6 Platelet Count 414 Mean Platelet Volume 8.3 Neutrophils (%) (Auto) 82.9 Lymphocytes (%) (Auto) 7.8 Monocytes (%) (Auto) 7.9 Eosinophils (%) (Auto) 1.3 Basophils (%) (Auto) 0.1 Neutrophils # (Auto) 10.8 Lymphocytes # (Auto) 1.0 Monocytes # (Auto) 1.0 Eosinophils # (Auto) 0.2 Basophils # (Auto) 0.0 CBC Comment DIFF FINAL Differential Comment Lipase 369 Date/Time Source Procedure Growth Status 10/27/17 12:08 Blood Peripheral Aerobic Blood Culture - Preliminary NO GROWTH IN 4 DAYS Resulted 10/27/17 12:08 Blood Peripheral Anaerobic Blood Culture - Preliminary NO GROWTH IN 4 DAYS Resulted 10/22/17 08:38 Urine Clean Catch Urine Culture - Final NO GROWTH IN 48 HOURS. Complete Abdomen: Non-distended, Non-tender Extremities: No edema, Perfused A/P Assessment and Plan Gallstone pancreatitis, s/p lap romaine with IOC demonstrating distal CBD obstruction. Cholangiogram demonstrated no evidence of filling defects, drain capped. Discussed with patient and boyfriend. Will confer with Dr Álvaro Solano, hope to stop antibiotics and Dc home to [place] where she can follow up with her physicians for drain removal. Garo Medrano MD Oct 31, 2017 11:39
--- NOTE | 2017-10-31 13:09 | HHI.IDPN ---
Subjective Subjective Remarks Patient is a 57-year-old female, patient had to the hospital with severe epigastric pain, as well as nausea and vomiting which started 1 day prior to admission. On presentation she had an elevated white count. Her LFTs were elevated, and her lipase was up to 7900. Her ultrasound showed some GB wall thickening, with polyps, and dilated common bile duct. Her lipase improved. She underwent lap cholecystectomy and IOC 10/24. She eventually underwent IR procedure and placement of external/internal biliary stent 10/25. She has had some fevers, but they got better until 10/26 she spiked to 101+ x 1. Again had fever yesterday up to 102. Patient has been tolerating her diet, had some nausea but no vomiting. Abdominal pain better. She is voiding ok. Has been having diarrhea, with some mixed semisolid stool. Denies SOB, and not congested, no coughing. No chest pain. She has no central line, and has PIV in her hands. Has no gillis. Has been ambulating in the hallways. Her last CXR was from 10/27 which showed basilar opacities C/W effusions stable compared to prior CXRs. Her WBC has been increasing and up to 17K. Her LFTs are improving. Last lipase 10/25 WNL. She has been on Zosyn since 10/22 and Vancomycin. Infectious Disease consultation has been requested to evaluate patient with fevers. Notes reviewed Temps better No new complaints CT A/P with findings of pancreatic necrosis, no abscess or pseudocyst WBC decreasing C/S negative Tolerating diet Had cholangiogram - patent, drain capped Antibiotics Current Medications Vancomycin Zosyn Medications (Trade) Dose Ordered Sig/Yashira Route Start Time Stop Time Status Last Admin (NS Flush) 2 ml UNSCH PRN IV FLUSH 10/20/17 04:15 10/25/17 05:43 (NS Flush) 2 ml BID IV FLUSH 10/20/17 09:00 10/27/17 08:51 (Zofran Inj) 4 mg Q6H PRN IVP 10/20/17 04:15 10/31/17 11:09 (Narcan Inj) 0.4 mg UNSCH PRN IV PUSH 10/20/17 04:15 (Toshia-Colace) 1 tab BID PO 10/20/17 09:00 10/27/17 08:51 (Milk Of Magnesia Liq) 30 ml Q12H PRN PO 10/20/17 04:15 10/23/17 09:00 (Senokot) 17.2 mg Q12H PRN PO 10/20/17 04:15 (Dulcolax Supp) 10 mg DAILY PRN RECTAL 10/20/17 04:15 (Lactulose Liq) 30 ml DAILY PRN PO 10/20/17 04:15 (Dilaudid Pf Inj) 0.5 mg Q6HR PRN IV 10/21/17 12:00 10/22/17 17:30 Dextrose/Sodium Chloride 1,000 ml @ 75 mls/hr [id number] IV 10/21/17 13:00 10/31/17 03:23 Piperacillin Sod/ Tazobactam Sod 100 ml @ 200 mls/hr Q6H IV 10/22/17 06:00 10/31/17 12:07 (Dilaudid Pf Inj) 1 mg Q3HR PRN IV PUSH 10/22/17 19:30 10/28/17 18:53 (Duoneb Neb) 1 ampule Q4HR NEB PRN NEB 10/23/17 00:30 10/28/17 12:49 (Miralax) 17 gm DAILY PO 10/23/17 10:30 10/27/17 08:51 (Vasotec Inj) 1.25 mg Q6H PRN IV PUSH 10/25/17 12:15 10/29/17 20:02 (Apresoline) 10 mg Q6H PRN PO 10/26/17 08:45 (Norvasc) 5 mg DAILY PO 10/26/17 09:00 10/31/17 09:24 (Protonix) 40 mg DAILY PO 10/26/17 13:30 10/31/17 09:24 (Ativan) 1 mg Q6H PRN PO 10/26/17 13:30 10/31/17 09:23 ([place] 5-325 Mg) 1 tab Q4H PRN PO 10/29/17 10:30 ([place] 5-325 Mg) 2 tab Q4H PRN PO 10/29/17 10:30 (Lactinex) 1 tab TID PO 10/29/17 18:00 10/31/17 12:07 (Tylenol) 650 mg Q6H PRN PO 10/30/17 00:45 10/30/17 14:54 Miscellaneous Information SPECIFIC LAB TO BE DRAWN:VANCOMYCIN TROUGH DATE TO... ONCE ONCE .XX 11/01/17 05:45 11/01/17 05:46 Lines PIV Past Medical History Left bunion surgery Right knee surgery Tummy tuck Breast lift Allergies: Coded Allergies: No Known Allergies (Unverified , 10/19/17) Objective . Vital Signs Date Time Temp Pulse Resp B/P (MAP) Pulse Ox O2 Delivery O2 Flow Rate FiO2 10/31/17 11:37 98.7 75 130/75 (93) 97 10/31/17 08:00 99.1 86 21 141/82 (101) 94 10/31/17 00:28 99.1 85 18 159/93 (115) 92 10/30/17 20:00 99.1 80 18 162/87 (112) 93 10/30/17 18:10 93 Nasal Cannula 1.00 10/30/17 16:29 93 10/30/17 16:28 93 10/30/17 16:00 98.0 98 16 155/84 (107) 94 10/31/17 10/31/17 11/01/17 15:00 23:00 07:00 Intake Total 120 ml Balance 120 ml Intake Oral 120 ml . Laboratory Tests Test 10/30/17 09:55 10/31/17 07:13 White Blood Count 16.4 TH/MM3 13.1 TH/MM3 Red Blood Count 3.91 MIL/MM3 3.77 MIL/MM3 Hemoglobin 11.2 GM/DL 10.9 GM/DL Hematocrit 33.7 % 32.3 % Mean Corpuscular Volume 86.2 FL 85.7 FL Mean Corpuscular Hemoglobin 28.7 PG 28.8 PG Mean Corpuscular Hemoglobin Concent 33.3 % 33.6 % Red Cell Distribution Width 13.9 % 13.6 % Platelet Count 400 TH/MM3 414 TH/MM3 Mean Platelet Volume 8.2 FL 8.3 FL Neutrophils (%) (Auto) 86.9 % 82.9 % Lymphocytes (%) (Auto) 5.5 % 7.8 % Monocytes (%) (Auto) 6.6 % 7.9 % Eosinophils (%) (Auto) 0.8 % 1.3 % Basophils (%) (Auto) 0.2 % 0.1 % Neutrophils # (Auto) 14.2 TH/MM3 10.8 TH/MM3 Lymphocytes # (Auto) 0.9 TH/MM3 1.0 TH/MM3 Monocytes # (Auto) 1.1 TH/MM3 1.0 TH/MM3 Eosinophils # (Auto) 0.1 TH/MM3 0.2 TH/MM3 Basophils # (Auto) 0.0 TH/MM3 0.0 TH/MM3 CBC Comment DIFF FINAL DIFF FINAL Differential Comment Laboratory Tests Test 10/30/17 06:53 10/31/17 07:13 Blood Urea Nitrogen 7 MG/DL Creatinine 1.05 MG/DL Random Glucose 115 MG/DL Total Protein 6.6 GM/DL Albumin 1.8 GM/DL Calcium Level 8.5 MG/DL Phosphorus Level 2.8 MG/DL Magnesium Level 2.0 MG/DL Alkaline Phosphatase 139 U/L Aspartate Amino Transf (AST/SGOT) 26 U/L Alanine Aminotransferase (ALT/SGPT) 26 U/L Total Bilirubin 0.8 MG/DL Direct Bilirubin 0.3 MG/DL Sodium Level 139 MEQ/L Potassium Level 3.5 MEQ/L Chloride Level 105 MEQ/L Carbon Dioxide Level 25.9 MEQ/L Anion Gap 8 MEQ/L Estimat Glomerular Filtration Rate 54 ML/MIN Indirect Bilirubin 0.5 MG/DL Lipase 296 U/L 369 U/L Imaging Cholangiogram 10/30/17 0000 Signed Impressions: Service Date/Time: Monday, October 30, 2017 13:32 - CONCLUSION: 1. No retained stones identified. 2. Tapered narrowing of the distal common bile duct down near the level of the ampulla. 3. Internal/external biliary drain in satisfactory position. 4. The tube was capped. Christiano Macias MD Abdomen/Pelvis CT 10/29/17 0000 Signed Impressions: Service Date/Time: Sunday, October 29, 2017 18:34 - CONCLUSION: 1. Percutaneous biliary drain. 2. Acute pancreatitis with central area of decreased attenuation in the body suggesting necrosis. No abscess or pseudocyst. 3. Bibasilar consolidation and small pleural effusions. Hill Grimm MD Chest X-Ray 10/27/17 0000 Signed Impressions: Service Date/Time: Friday, October 27, 2017 09:10 - CONCLUSION: Suspected bilateral pleural effusions with some accompanying atelectasis or consolidation at the bases. Tejas Hopkins MD Bile Duct Drainage 10/25/17 0000 Signed Impressions: Service Date/Time: Wednesday, October 25, 2017 13:32 - CONCLUSION: Uncomplicated biliary stent placement as above. Tejas Brown MD Cholangiopancreatography MRI 10/20/17 0000 Signed Impressions: Service Date/Time: Friday, October 20, 2017 15:38 - CONCLUSION: 1. Severe peripancreatic inflammatory change indicating acute pancreatitis. 2. Numerous gallstones in the gallbladder. 3. Common duct diameter is mildly prominent proximally measuring 8 mm. No abnormal filling defect. Chin Griffin MD Gall Bladder Ultrasound 10/19/17 0000 Signed Impressions: Service Date/Time: Friday, October 20, 2017 00:06 - CONCLUSION: Gallbladder adenomyomatosis Dilated common bile duct without clear etiology. Tejas Brown MD Physical Exam GENERAL: awake and alert, not in respiratory distress. SKIN: Cool and dry. No generalized rash, no ecchymoses and no evidence of embolic lesions. HEAD: Atraumatic. Normocephalic. No temporal wasting, or tenderness. EYES: [place] conjunctiva. No petechia or hemorrhage. Pupils equal, round and reactive to light. Extraocular movements full and intact. No scleral icterus. EARS, NOSE AND THROAT: Nose without bleeding or purulent nasal discharge. No sinus tenderness. Mucous membranes pink and moist. No oral lesions noted. NECK: Trachea midline. Supple and not tender, no meningeal signs CARDIOVASCULAR: Regular rate and rhythm. No murmurs, rubs or gallops heard RESPIRATORY: Decreased breath sounds at bases, with decreased vocal fremitus, worse on L than on R, no E to A changes. No rales, wheezing or rhonchi ABDOMEN: Soft, non-tender, nondistended. Bowel sounds present and normoactive. No guarding. No rebound. No organomegaly. Small incisions are all dry with no evidence of infection. Drain RUQ capped EXTREMITIES: No clubbing, cyanosis, or edema. No joint effusion, has good ROM. No calf tenderness. Well perfused and warm. NEUROLOGICAL: Non-focal PSYCHIATRIC: Normal affect, calm and cooperative. LINE: No evidence of infection Assessment & Plan Remarks IMPRESSION Recurrent fevers, non-localizing, resolved - prob due to pancreatic necrosis - no abscess or pseudocyst Episode of gallstone pancreatitis, S/P lap romaine S/P PTC with external/internal biliary drain placed 10/25 S/P respiratory insufficiency, has bilateral effusions, stable and respiratory status is better Has no lines, no gillis Has some diarrhea, mixed stool and liquid RECOMMENDATION Stop all Abs Monitor temps If stable, should be able to D/C home D/W K Charli CARRASCO Explained plan to Lee Ann Castellano MD Oct 31, 2017 13:09
--- NOTE | 2017-10-31 13:47 | HHI.PR ---
Subjective Remarks stable no acute issue no abdominal pain nausea or vomiting External drainage has been Without any fever overnight Objective Vitals Vital Signs Date Time Temp Pulse Resp B/P (MAP) Pulse Ox O2 Delivery O2 Flow Rate FiO2 10/31/17 11:37 98.7 75 130/75 (93) 97 10/31/17 08:00 99.1 86 21 141/82 (101) 94 10/31/17 00:28 99.1 85 18 159/93 (115) 92 10/30/17 20:00 99.1 80 18 162/87 (112) 93 10/30/17 18:10 93 Nasal Cannula 1.00 10/30/17 16:29 93 10/30/17 16:28 93 10/30/17 16:00 98.0 98 16 155/84 (107) 94 I/O 10/30/17 10/30/17 10/30/17 10/31/17 10/31/17 10/31/17 07:00 15:00 23:00 07:00 15:00 23:00 Intake Total 720 ml 100 ml 820 ml 1388 ml 120 ml Output Total 575 ml 1675 ml 1600 ml Balance 145 ml 100 ml -855 ml -212 ml 120 ml Intake Oral 720 ml 720 ml 120 ml IV Total 100 ml 100 ml 1388 ml Output Urine Total 1675 ml 1600 ml Drainage Total 575 ml # Voids 3 # Bowel Movements 1 3 Result Diagram: 10/31/17 0713 10/30/17 0653 Objective Remarks GENERAL: This is a well-nourished, well-developed patient, in no apparent distress. CARDIOVASCULAR: Regular rate and rhythm without murmurs, gallops, or rubs. RESPIRATORY: Clear to auscultation. Breath sounds equal bilaterally. No wheezes , rales, or rhonchi. GASTROINTESTINAL: Abdomen soft, tender to palpation, nondistended. Normal active bowel sounds, biliary external drainer in place MUSCULOSKELETAL: Extremities without clubbing, cyanosis, or edema. NEURO: Alert & Oriented x4 to person, place, time, situation. Moves all ext x4 A/P Assessment and Plan 10/29/17:Patient ran fever of 102 yesterday at 8 PM, and 100.2 this morning, she still have leukocytosis of 17,000, blood pressure not optimal at 156/95 creatinine increased to 1.07 patient is day #5 post op, will continue Zosyn and Vanco, I will consult ID, monitor CBC in a.m., repeat BMP, she is on D5 half- normal saline, will continue and monitor closely. Lengthy discussion with the patient, and radiology Dr. Macias, plan to clamp her external drainer and monitor clinical course she may need 24 hours of observation after clamping the external drainer. IR following 10/30/17: again fever of 100.9 yesterday night, creatinine trended back to normal 26, creatinine at 1.05 be going for cholangiogram today 10/31/17: Plan to monitor overnight for any fever or worsening clinical situation after closing the external drain her, if none of that then patient she'll be okay to be discharged and to follow-up with radiology department in [place] or [place] in 2 weeks A/P: 1. Acute pancreatitis IV fluid hydration Patient with transaminitis and elevated common bile duct on ultrasound s/p Laparoscopic cholecystectomy with intraoperative cholangiography 09/24 Intraoperative cholangiography demonstrated distal common bile duct obstruction , question stone versus edema. GI following and she is s/p ERCP due to filling defect on intraoperative cholangiogram. Failed free cannulation. s/p PTC by IR ( now has internal and external biliary stent placement). Pt's respiratory status had worsened post op and required transfer to ICU for close monitoring. s/p 40mg IV lasix . Now on Nasal canula at 2L and improving. Will continue to wean. on vanco and zosyn IV. Pain control per sx. 2. Hypertension/tachycardia Patient without history of hypertension May be secondary to pain or anxiety/pain. on vasotec prn. s/p hydralazine IV 10mg x1 and 10mg po hydralazine prn BP>160/90. s/p dose of labetalol in PACU. on amlodipine 5mg po daily and titrate as needed. Monitor 3. ANANT with creatinine increased to 1.03 4. Hypokalemia Replace potassium, monitor BMP Discharge Planning today to follow-up with Dr. Macias in 2 weeks Luz Munson MD Oct 31, 2017 13:46
[2017-10-31 13:53] LABS: BILIRUBIN, URINE NEG (NEG); BLOOD, URINE NEG (NEG); GLUCOSE,URINE NEG (NEG); KETONE, URINE NEG (NEG); NITRITE,URINE NEG (NEG); PH, URINE 7.5 (5.0-8.5); SQUAMOUS EPITHELIAL CELL URINE <1 /hpf (0-5); URINE COLOR LIGHT-YELLOW (YELLW/STRAW); URINE LEUKOCYTE ESTERASE NEG (NEG)
[2017-10-31 16:00] VITALS: BP 146/80; PULSE 90; RESP 20; TEMP 99.7; O2SAT 95
--- NOTE | 2017-10-31 17:13 | HHI.GIFU ---
Subjective Remarks Pt resting in bed, napping. tolerating diet. Objective Vitals I&O Vital Signs Date Time Temp Pulse Resp B/P (MAP) Pulse Ox O2 Delivery O2 Flow Rate FiO2 10/31/17 16:00 99.7 90 20 146/80 (102) 95 10/31/17 11:37 98.7 75 130/75 (93) 97 10/31/17 08:00 99.1 86 21 141/82 (101) 94 10/31/17 00:28 99.1 85 18 159/93 (115) 92 10/30/17 20:00 99.1 80 18 162/87 (112) 93 10/30/17 18:10 93 Nasal Cannula 1.00 I/O 10/30/17 10/30/17 10/30/17 10/31/17 10/31/17 10/31/17 07:00 15:00 23:00 07:00 15:00 23:00 Intake Total 720 ml 100 ml 820 ml 1388 ml 120 ml Output Total 575 ml 1675 ml 1600 ml Balance 145 ml 100 ml -855 ml -212 ml 120 ml Intake Oral 720 ml 720 ml 120 ml IV Total 100 ml 100 ml 1388 ml Output Urine Total 1675 ml 1600 ml Drainage Total 575 ml # Voids 3 # Bowel Movements 1 3 Laboratory Laboratory Tests Test 10/31/17 07:13 10/31/17 13:20 White Blood Count 13.1 Red Blood Count 3.77 Hemoglobin 10.9 Hematocrit 32.3 Mean Corpuscular Volume 85.7 Mean Corpuscular Hemoglobin 28.8 Mean Corpuscular Hemoglobin Concent 33.6 Red Cell Distribution Width 13.6 Platelet Count 414 Mean Platelet Volume 8.3 Neutrophils (%) (Auto) 82.9 Lymphocytes (%) (Auto) 7.8 Monocytes (%) (Auto) 7.9 Eosinophils (%) (Auto) 1.3 Basophils (%) (Auto) 0.1 Neutrophils # (Auto) 10.8 Lymphocytes # (Auto) 1.0 Monocytes # (Auto) 1.0 Eosinophils # (Auto) 0.2 Basophils # (Auto) 0.0 CBC Comment DIFF FINAL Differential Comment Lipase 369 Urine Color LIGHT-YELLOW Urine Turbidity CLEAR Urine pH 7.5 Urine Specific [place] 1.007 Urine Protein NEG Urine Glucose (UA) NEG Urine Ketones NEG Urine Occult Blood NEG Urine Nitrite NEG Urine Bilirubin NEG Urine Urobilinogen LESS THAN 2.0 Urine Leukocyte Esterase NEG Urine WBC 1 Urine Squamous Epithelial Cells <1 Microscopic Urinalysis Comment CULT NOT INDICATED Date/Time Source Procedure Growth Status 10/27/17 12:08 Blood Peripheral Aerobic Blood Culture - Preliminary NO GROWTH IN 4 DAYS Resulted 10/27/17 12:08 Blood Peripheral Anaerobic Blood Culture - Preliminary NO GROWTH IN 4 DAYS Resulted 10/22/17 08:38 Urine Clean Catch Urine Culture - Final NO GROWTH IN 48 HOURS. Complete Imaging Last Impressions Cholangiogram 10/30/17 0000 Signed Impressions: Service Date/Time: Monday, October 30, 2017 13:32 - CONCLUSION: 1. No retained stones identified. 2. Tapered narrowing of the distal common bile duct down near the level of the ampulla. 3. Internal/external biliary drain in satisfactory position. 4. The tube was capped. Christiano Macias MD Abdomen/Pelvis CT 10/29/17 0000 Signed Impressions: Service Date/Time: Sunday, October 29, 2017 18:34 - CONCLUSION: 1. Percutaneous biliary drain. 2. Acute pancreatitis with central area of decreased attenuation in the body suggesting necrosis. No abscess or pseudocyst. 3. Bibasilar consolidation and small pleural effusions. Hill Grimm MD Chest X-Ray 10/27/17 0000 Signed Impressions: Service Date/Time: Friday, October 27, 2017 09:10 - CONCLUSION: Suspected bilateral pleural effusions with some accompanying atelectasis or consolidation at the bases. Tejas Hopkins MD Bile Duct Drainage 10/25/17 0000 Signed Impressions: Service Date/Time: Wednesday, October 25, 2017 13:32 - CONCLUSION: Uncomplicated biliary stent placement as above. Tejas Brown MD Cholangiopancreatography MRI 10/20/17 0000 Signed Impressions: Service Date/Time: Friday, October 20, 2017 15:38 - CONCLUSION: 1. Severe peripancreatic inflammatory change indicating acute pancreatitis. 2. Numerous gallstones in the gallbladder. 3. Common duct diameter is mildly prominent proximally measuring 8 mm. No abnormal filling defect. Chin Griffin MD Gall Bladder Ultrasound 10/19/17 0000 Signed Impressions: Service Date/Time: Friday, October 20, 2017 00:06 - CONCLUSION: Gallbladder adenomyomatosis Dilated common bile duct without clear etiology. Tejas Brown MD Physical Exam HEENT: Normocephalic; atraumatic CHEST: CTA CARDIAC: RRR ABDOMEN: mildly distended, soft, BS + nontender EXTREMITIES: No clubbing, cyanosis, or edema. SKIN: Normal; no rash; no jaundice. Obese [employer]PART[employer] WORK[employer]: No focal deficits; alert and oriented times three. Assessment and Plan Plan ASSESSMENT - Pancreatitis most likely secondary to CBD stones, now with necrosis. MRCP () --> Severe peripancreatic inflammatory change indicating acute pancreatitis. Numerous gallstones in gallbladder. Common duct diameter is mildly prominent proximally measuring 8 mm. No abnormal filling defect. S/P cholecystectomy. Cholangiogram (10/24) --> Distal common bile duct stones versus debris with very low contrast progressing into the duodenum. LFTs and lipase improving. , 12-29 attempt ERCP, stent placed per IR, now has biliary drain. CT abd 10/29/16 shows acute pancreatitis and suggestive of necrosis, no abscess or pseudocyst. Cholangiogram 10/30/17 showed no retained stones, tapered narrowing level ampulla, drain capped. lipase WNL, LFTs trending down, tolerating diet. - Leukocytosis - ID following PLAN - low fat diet - probiotics - Monitor labs - abx per ID - Monitor labs - outpt cholangiogram - need for ERCP with stent based on results outpt cholangiogram - Supportive care - not much more to add from GI standpoint, will s/o. please reconsult if needed Pt seen and discussed with Dr Ahmadi and this note is written on his behalf Fawn Colin Oct 31, 2017 17:13
[2017-10-31 20:00] VITALS: BP 144/86; PULSE 93; RESP 20; TEMP 99.6; O2SAT 93
[2017-10-31 22:18] VITALS: O2SAT 92
[2017-11-01] VITALS: BP 161/94; PULSE 85; RESP 18; TEMP 98.3; O2SAT 92
[2017-11-01] MEDS: LORazepam 1 MG TAB PO PRN (00:24)
[2017-11-01] MEDS ORDERED: PHARMACY ORDERED LAB ONE (05:45)
[2017-11-01 08:00] VITALS: BP 152/96; PULSE 89; RESP 20; TEMP 98.7; O2SAT 96
[2017-11-01] MEDS: DEXT 5%-NACL 0.45% 1000 ML INJ 1,000 ML IV SCH (08:34)
[2017-11-01] MEDS: POLYETHYLENE GLYCOL 17 GM PKG PO SCH (09:00)
[2017-11-01] MEDS: SODIUM CHLORIDE 0.9% FLUSH 10 ML FLUSH IV FLUSH SCH (09:00)
[2017-11-01] MEDS: DOCUSATE SODIUM 50 MG/SENNA 8.6 MG TAB PO SCH (09:00)
[2017-11-01] MEDS: PANTOPRAZOLE SOD 40 MG DELAYED RELEASE TAB PO SCH (09:59)
[2017-11-01] MEDS: amLODIPine BESYLATE 5 MG TAB PO SCH (10:00)
[2017-11-01] MEDS: LACTOBACILLUS ACIDOPHILUS TAB PO SCH ×2 (10:01→13:48)
[2017-11-01] MEDS ORDERED: HYDR-3516 PO (10:37)
[2017-11-01] MEDS ORDERED: AMLO5 PO (10:37)
[2017-11-01] MEDS ORDERED: LACT PO (10:37)
[2017-11-01 11:43] VITALS: O2SAT 93
[2017-11-01 12:00] VITALS: BP 132/67; PULSE 85; RESP 19; TEMP 97.9; O2SAT 95
--- NOTE | 2017-11-01 13:26 | HHI.PR ---
Subjective Subjective Notes Getting ready to go home. Has instructions for drain care from IR. Tolerating po well, voiding, having BMs. Walking halls without difficulty. Objective Vitals/I&O Vital Signs Date Time Temp Pulse Resp B/P (MAP) Pulse Ox O2 Delivery O2 Flow Rate FiO2 11/01/17 12:00 97.9 85 19 132/67 (88) 95 10/31/17 22:18 21 10/30/17 18:10 Nasal Cannula 1.00 Labs Date/Time Source Procedure Growth Status 10/27/17 12:08 Blood Peripheral Aerobic Blood Culture - Final NO GROWTH IN 5 DAYS Complete 10/27/17 12:08 Blood Peripheral Anaerobic Blood Culture - Final NO GROWTH IN 5 DAYS Complete 10/22/17 08:38 Urine Clean Catch Urine Culture - Final NO GROWTH IN 48 HOURS. Complete Narrative Exam soft, benign abdomen. Drain capped. Extremities without edema. A/P Assessment and Plan Gallstone pancreatitis, s/p lap romaine with IOC demonstrating distal CBD obstruction. DC orders entered. Awaiting records for transition of care to physicians in [place] as outpatient. Repeat UA negative. Follow up with her doctors in [place]. Garo Medrano MD Nov 01, 2017 13:26
--- NOTE | 2017-11-01 19:45 | HHI.DS ---
Discharge Summary Admission Date Oct 20, 2017 at 04:26 Discharge Date: Nov 01, 2017 Admitting Diagnosis acute pancreatitis (1) Biliary calculi, common bile duct ICD Code: K80.50 - Calculus of bile duct without cholangitis or cholecystitis without obstruction (2) Acute biliary pancreatitis ICD Code: K85.10 - Biliary acute pancreatitis without necrosis or infection Procedures cholangiography with drainage see below for further information Brief History - From Admission 57-year-old female with no significant past medical history for since the emergency department for evaluation of severe epigastric abdominal pain and nausea/vomiting. The patient reports her symptoms started yesterday morning. She had severe, 10/10, nonradiating epigastric abdominal pain with severe nausea and multiple episodes of NBNB emesis. Lab values significant for WBC count of 18.1. She has a transaminitis with a lipase of 7986. Ultrasound of the gallbladder showed adenomyomatosis with a dilated common bile duct without clear etiology. Patient found to be tachycardic and hypertensive in the emergency department. CBC/BMP: 10/31/17 0713 10/30/17 0653 Significant Findings Laboratory Tests Test 10/30/17 06:53 10/30/17 09:55 10/31/17 07:13 10/31/17 13:20 Creatinine 1.05 MG/DL (0.50-1.00) Random Glucose 115 MG/DL (74-106) Albumin 1.8 GM/DL (3.4-5.0) Alkaline Phosphatase 139 U/L (45-117) Direct Bilirubin 0.3 MG/DL (0.0-0.2) Estimat Glomerular Filtration Rate 54 ML/MIN (>89) White Blood Count 16.4 TH/MM3 (4.0-11.0) 13.1 TH/MM3 (4.0-11.0) Red Blood Count 3.91 MIL/MM3 (4.00-5.30) 3.77 MIL/MM3 (4.00-5.30) Hemoglobin 11.2 GM/DL (11.6-15.3) 10.9 GM/DL (11.6-15.3) Hematocrit 33.7 % (35.0-46.0) 32.3 % (35.0-46.0) Neutrophils (%) (Auto) 86.9 % (16.0-70.0) 82.9 % (16.0-70.0) Lymphocytes (%) (Auto) 5.5 % (9.0-44.0) 7.8 % (9.0-44.0) Neutrophils # (Auto) 14.2 TH/MM3 (1.8-7.7) 10.8 TH/MM3 (1.8-7.7) Lymphocytes # (Auto) 0.9 TH/MM3 (1.0-4.8) Monocytes # (Auto) 1.1 TH/MM3 (0-0.9) 1.0 TH/MM3 (0-0.9) PE at Discharge GENERAL: This is a well-nourished, well-developed patient, in no apparent distress. CARDIOVASCULAR: Regular rate and rhythm without murmurs, gallops, or rubs. RESPIRATORY: Clear to auscultation. Breath sounds equal bilaterally. No wheezes , rales, or rhonchi. GASTROINTESTINAL: Abdomen soft, tender to palpation, nondistended. Normal active bowel sounds, biliary external drainer in place MUSCULOSKELETAL: Extremities without clubbing, cyanosis, or edema. NEURO: Alert & Oriented x4 to person, place, time, situation. Moves all ext x4 Hospital Course 57 years old female admitted with Acute pancreatitis IV fluid hydration Patient with transaminitis and elevated common bile duct on ultrasound s/p Laparoscopic cholecystectomy with intraoperative cholangiography 09/24 Intraoperative cholangiography demonstrated distal common bile duct obstruction , question stone versus edema. GI following and she is s/p ERCP due to filling defect on intraoperative cholangiogram. Failed free cannulation. s/p PTC by IR ( now has internal and external biliary stent placement). Pt's respiratory status had worsened post op and required transfer to ICU for close monitoring. s/p 40mg IV lasix . on Nasal canula at 2L and improving. Will continue to wean. on vanco and zosyn IV. Pain control per sx patient also had ANANT with creatinine increased to 1.03which improved after that. 10/29/17:Patient ran fever of 102 yesterday at 8 PM, and 100.2 this morning, she still have leukocytosis of 17,000, blood pressure not optimal at 156/95 creatinine increased to 1.07 patient is day #5 post op, will continue Zosyn and Vanco, I will consult ID, monitor CBC in a.m., repeat BMP, she is on D5 half- normal saline, will continue and monitor closely. Lengthy discussion with the patient, and radiology Dr. Macias, plan to clamp her external drainer and monitor clinical course she may need 24 hours of observation after clamping the external drainer. IR following 10/30/17: again fever of 100.9 yesterday night, creatinine trended back to normal 26, creatinine at 1.05 be going for cholangiogram today 10/31/17: Plan to monitor overnight for any fever or worsening clinical situation after closing the external drain her, if none of that then patient she'll be okay to be discharged and to follow-up with radiology department in [place] or [place] in 2 weeks Patient is concerned about being discharged with thebiliary interior drainer, she wasn't sure if she we'll be able to follow-up in [place], so I called Dr. Christiano Chowdhury and he graciously scheduled the patient to see him in 2 weeks to remove the drain her in case she wasn't able to do it in [place]. Patient and her were very satisfied with this post dischargeplan time spent 45 Minutes Pt Condition on Discharge: Fair Discharge Disposition: Discharge Home Discharge Time: > 30 minutes Discharge Instructions DIET: Follow Instructions for: Heart Healthy Diet Activities you can perform: Weight Bearing as Denisse Follow up Referrals: Appointment for Follow Up PCP Follow-up New Medications: Amlodipine (Norvasc) 5 Mg Tab 10 MG PO DAILY for htn, #30 TAB Hydrocodone/Acetaminophen (Hydrocodone-Acetamin 5-325 mg) 5 Mg-325 Mg Tablet 1 TAB PO Q4H PRN for pain, #5 TAB Lactobacillus Acidophilus (Acidophilus/l-Sporogenes) 35 Million Cell-25 Million Cell Tab 1 TAB PO TID for gi proph , #30 TAB Luz Munson MD Nov 01, 2017 19:45
== END 2017-11-01 14:29 | disposition home or self-care (01) | DRG 418 ==
LOC: NEPE 23:26 → NEDA 10-20 04:26 → N07B 10-20 06:55 → N03B 10-25 19:06 → N07B 10-27 13:59
PROVIDERS: ADMIT Hospitalist; ATTEND Hospitalist
PROC: 07BC4ZX Excision of Pelvis Lymphatic, Percutaneous Endoscopic Approach, Diagnostic (ICD-10-PCS; 2017-10-24)
PROC: BF111ZZ Fluoroscopy of Biliary and Pancreatic Ducts using Low Osmolar Contrast (ICD-10-PCS; 2017-10-24)
PROC: 0FT44ZZ Resection of Gallbladder, Percutaneous Endoscopic Approach (ICD-10-PCS; principal; 2017-10-24 11:41)
PROC: 0FJB8ZZ Inspection of Hepatobiliary Duct, Via Natural or Artificial Opening Endoscopic (ICD-10-PCS; 2017-10-25)
PROC: 0F793DZ Dilation of Common Bile Duct with Intraluminal Device, Percutaneous Approach (ICD-10-PCS; 2017-10-25)
DX: K85.10 Biliary acute pancreatitis without necrosis or infection (principal); K80.61 Calculus of gallbladder and bile duct with cholecystitis, unspecified, with obstruction; N17.9 Acute kidney failure, unspecified; J90 Pleural effusion, not elsewhere classified; R18.8 Other ascites; I10 Essential (primary) hypertension; Z82.49 Family history of ischemic heart disease and other diseases of the circulatory system; Z83.3 Family history of diabetes mellitus; E86.0 Dehydration; R19.7 Diarrhea, unspecified; E87.6 Hypokalemia; K29.70 Gastritis, unspecified, without bleeding; F41.9 Anxiety disorder, unspecified
CPT/HCPCS: 36600; 47531; 47540; 71010; 74176; 74177; 74181; 74300; 76000; 76377; 76705; 80048; 80053; 80076; 80202; 81001; 82805; 82948; 83605; 83690; 83735; 83880; 84100; 84132; 84484; 85007; 85025; 85027; 85610; 85730; 87040; 87086; 88304; 93005; 94150; 94640; 94664; 96361; 96374; 96375; 96376; C1729; C1769; C1887; C1894; J0131; J0360; J0610; J0696; J1100; J1170; J1610; J1940; J2250; J2270; J2405; J2543; J2710; J2930; J3010; J3370; J3475; J3480; J7030; J7040; J7050; J7120; J7613; Q9963; Q9967